=== PATIENT | female | born 1965 | race African-American/Black ===

== ENCOUNTER 2020-03-29 10:00 | Outpatient (REF) | payer OTHER, SELFPAY ==
--- NOTE | 2020-03-30 08:33 | MHC.AU.P13 ---
Adult Audiological Evaluation Date of Visit: 03/29/20 [employer] Used: Not Applicable Reason for Appointment: Audiologic re-evaluation due to increased hearing difficulties. Previous Hearing Test Results: 05/08/2017 [facility] Normal hearing thresholds at 250 and 500 Hz, precipitously dropping to a profound sensorineural hearing loss at 0642-0151 Hz with 33% speech discrimination bilaterally at 85 dB HL. Ear History: Family History of Hearing Loss?: Yes Medical History: Medication List: Not available for review today Hearing Instrument History- Right Ear: Mill Tender Washing: Phonak Model: Virto B 50-312 Serial Number: [id number] Battery Size: 312 Warranty: 10/14/2020 Service Plan: Repair and L&D Dispensed By: [facility] Date of Fittin09/23/2017 Hearing Instrument History- Left Ear: Mill Tender Washing: Phonak Model: Virto B 50-312 Serial Number: [id number] Battery Size: 312 Warranty: 10/14/2020 Service Plan: Repair and L&D Dispensed By: [facility] Date of Fittin09/23/2017 Otoscopy: Right Ear: Unremarkable Left Ear: Unremarkable Tympanometry: Right Ear: Normal Middle Ear System (Type A) Left Ear: Negative Middle Ear Pressure (Type C) Hearing Evaluation: Transducer(s) Used: Insert Earphones Bone Conduction Method: Conventional Audiometry Stimuli Used: Pure Tones Right Ear: Description of Hearing: Mild, precipitously dropping to a profound sensorineural hearing loss at 750-8000 Hz. Left Ear: Description of Hearing: Mild, precipitously dropping to a profound sensorineural hearing loss at 4918-4432 Hz Speech Recognition Threshold (SRT): Method Used: Recorded Lists Stimuli Used: Spondee Words Right Ear: 50 dB HL Left Ear: 50 dB HL Word Discrimination: Method: Recorded Lists Word Lists Used: NU-6 Right Ear: 24% at a listening level of 90 dB HL 10% at a listening level of 95 dB HL Left Ear: 24% at a listening level of 90 dB HL 0% at a listening level of 95 dB HL Comparison: Compared to the most recent evaluation: Thresholds have decreased bilaterally. Recommendations: Recommendations: Audiological re-evaluation in one year. Referral to Ear, Nose, and Throat is recommended. See Hearing Aid Follow-Up note for more information. Hearing aid(s) reprogrammed with updated test results. Recommendations (Other): Advise Cochlear Implant consultation with Shearer Operator Dr. Karson Sadler due to the degree of hearing loss and increasing communication difficulties. Diagnosis: Primary Diagnosis: H90.3 Bilateral Sensorineural Hearing Loss Services Performed: Services Performed: Comprehensive Audiological Evaluation (CPT 04929) Tympanometry (CPT 22492) Signature: Provider: Soren Rivas, BRYSON-A
== END 2020-03-29 10:01 | disposition home or self-care (01) ==
LOC: HO.SH 10:00
PROVIDERS: PCP Internal Medicine; Referring Provider Internal Medicine; Visit Provider Internal Medicine
DX: H90.3 Sensorineural hearing loss, bilateral (principal)
CPT/HCPCS: 92557; 92567

== ENCOUNTER 2020-05-07 17:32 | Outpatient (REF) | payer OTHER, SELFPAY ==
--- NOTE | 2020-05-07 17:39 | US_ITS ---
EXAMINATION: US VENOUS ULTRASOUND WITH DOPPLER LOWER EXTREMITY, LEFT CLINICAL INFORMATION: Pain COMPARISON: None TECHNIQUE: Ultrasound of the deep veins is performed from the hip to the calf with compression sonography and color and pulse Doppler assessment. Spectral analysis with color-flow imaging is performed. FINDINGS: There is normal venous compression and respiratory variation and augmented flow. The visualized common femoral vein, superficial femoral vein, profunda femoral vein, popliteal vein, and the trifurcation region shows no evidence of deep venous thrombosis. There is no significant popliteal fossa cyst. There is a small amount of fluid seen in the region the ankle. US/US venous duplex LE LT IMPRESSION: No DVT demonstrated in the left lower extremity. Small amount of fluid seen about the ankle. Difficult to tell if this is related to the ankle joint effusion.
== END 2020-05-07 17:33 | disposition home or self-care (01) ==
LOC: HO.US 17:32
PROVIDERS: PCP Internal Medicine; Visit Provider Nurse Practitioner Family
DX: I82.409 Acute embolism and thrombosis of unspecified deep veins of unspecified lower extremity (principal); M79.662 Pain in left lower leg
CPT/HCPCS: 93971

== ENCOUNTER 2020-07-19 10:52 | Outpatient (REF) | payer OTHER, SELFPAY ==
--- NOTE | ~2020-07-19 | XR_ITS ---
EXAMINATION: XR FOOT, RIGHT CLINICAL INFORMATION: Injury of the right foot COMPARISON: None TECHNIQUE: AP, lateral, and oblique views of the right foot. FINDINGS: No fracture or dislocation. Alignment is anatomic. Joint spaces are maintained. The soft tissues are unremarkable. Mild hypertrophic spurring at the plantar aponeurosis of the calcaneus. XR/XR foot RT min 3V IMPRESSION: Small plantar heel spur. No acute abnormality.
== END 2020-07-19 10:53 | disposition home or self-care (01) ==
LOC: HO.HMGCX 10:52
PROVIDERS: PCP Internal Medicine; Visit Provider Nurse Practitioner Family
DX: S99.929A Unspecified injury of unspecified foot, initial encounter (principal)
CPT/HCPCS: 73630

== ENCOUNTER 2020-08-02 16:41 | Emergency (ER) | payer OTHER, SELFPAY ==
--- NOTE | ~2020-08-02 | US_ITS ---
EXAMINATION: US VENOUS ULTRASOUND WITH DOPPLER LOWER EXTREMITY, BILATERAL CLINICAL INFORMATION: COMPARISON: None TECHNIQUE: Ultrasound of the deep veins is performed from the hip to the calf with compression sonography and color and pulse Doppler assessment. Spectral analysis with color-flow imaging is performed. FINDINGS: RIGHT: There is normal venous compression and respiratory variation and augmented flow. The visualized common femoral vein, superficial femoral vein, profunda femoral vein, popliteal vein, and the trifurcation region shows no evidence of deep venous thrombosis. There is no significant popliteal fossa cyst. LEFT: There is normal venous compression and respiratory variation and augmented flow. The visualized common femoral vein, superficial femoral vein, profunda femoral vein, popliteal vein, and the trifurcation region shows no evidence of deep venous thrombosis. There is no significant popliteal fossa cyst. If the patient's symptoms persist, followup ultrasound in 5 days 7 days might be of value to exclude proximal propagation from a non-visualized calf vein. US/US venous duplex LE BI IMPRESSION: No DVT demonstrated in the bilateral lower extremity.
--- NOTE | ~2020-08-02 | CT_ITS ---
EXAMINATION: CT ABDOMEN AND PELVIS WITH CONTRAST CLINICAL INFORMATION: Lower abdominal pain COMPARISON: None TECHNIQUE: Multidetector volumetric images were obtained from the superior aspect of the liver through the pubic symphysis following administration 85 mL of Omnipaque 350 intravenous contrast. Sagittal and coronal reformatted images were obtained on the technologist's workstation. Oral contrast: No This CT examination was performed using dose optimization techniques as appropriate, variously including the following: *Automated exposure control *Adjustment of mA and/or kV according to patient size (this includes techniques or standardized protocols for targeted exams where dose is matched to indication/reason for exam; i.e. extremities or head) *Use of iterative reconstruction technique DLP: 366 mGy-cm FINDINGS: LUNG BASES: The lung bases are clear. The heart size is normal. LIVER, GALLBLADDER, AND BILIARY TREE: The liver is normal in size, shape, and attenuation. There is a 5 mm hypodensity in the right hepatic lobe segment 6 most likely small cyst. No additional lesions seen. There is no intrahepatic ductal dilatation. There is contracted without any radiopaque calculi. PANCREAS: Unremarkable. SPLEEN: Unremarkable. ADRENAL GLANDS: Unremarkable. KIDNEYS AND URETERS: The kidneys are normal in size, shape, and attenuation. No hydronephrosis, hydroureter, or calculi seen. No perinephric stranding. There is a punctate hypodensity in the midpole right kidney cortex likely small cyst on coronal image 44/15. BLADDER: Unremarkable. GASTROINTESTINAL TRACT: There is scattered stool, diverticula and gas seen throughout the colon without significant distention or diverticulitis.. The small bowel loops are normal caliber. The stomach is distended with recently ingested food ABDOMINAL WALL: No significant hernia is appreciated. LYMPH NODES: Normal. VASCULAR: There is atherosclerotic calcification of abdominal aorta without aneurysmal dilatation. PELVIC VISCERA: The uterus is anteverted and appears unremarkable. There is no adnexal mass. There is no free fluid. OSSEOUS STRUCTURES: No lytic or sclerotic process seen. CT/CT abdomen pelvis w con IMPRESSION: Severe constipation without obstruction. Colonic diverticulosis without diverticulitis. No radiopaque urolith or hydroureteronephrosis. Tiny cyst right hepatic lobe.
[2020-08-02 17:20] VITALS: BP 124/61; PULSE 65; RESP 18; TEMP 37.3; O2SAT 97; BMI 18.6
[2020-08-02 19:47] VITALS: BP 155/69; PULSE 57; RESP 18; O2SAT 98
--- NOTE | 2020-08-02 20:09 | ED.GENADULT ---
HPI - General Adult General Chief complaint: General Medical Stated complaint: pelvic pain Time Seen by Provider: 08/02/20 19:48 Source: patient Mode of arrival: ambulatory Limitations: no limitations History of Present Illness HPI narrative: Patient presents to ED for lower abdominal pain radiating to groin area. Patient denies any dysuria, hematuria, fever, chills, nausea, vomiting, flank pain. Patient's secondary complaint is left calf pain and was concerned for blood clot due to history of blood clot and also recently receiving Malachi Malachi COVID vaccine. Patient denies any chest pain or shortness of breath. Patient states she is not sexually active. Patient denies any vaginal discharge or vaginal lesions. Related Data Previous Rx's Medication Instructions Recorded ibuprofen 800 mg tablet 800 mg PO TID 30 Days #90 tab 05/10/20 tramadol 50 mg tablet 50 mg PO BID PRN 7 Days #14 tab 05/10/20 prednisone 20 mg tablet 20 mg PO DAILY 9 Days #18 tab 07/19/20 polyethylene glycol 3350 [Miralax] 17 g PO DAILY 7 Days #119 g 08/02/20 Allergies Allergy/AdvReac Type Severity Reaction Status Date / Time penicillin V Allergy Unknown rash Verified 08/02/20 17:20 Review of Systems Review of Systems: Yes all other systems are reviewed and are negative Constitutional: Constitutional: Reports as per HPI and Reports no additional constitutional complaints Eyes: Eyes: Reports as per HPI and Reports no additional eye complaints ENT: Reports system reviewed and no additional complaints, except as documented and Reports as per HPI Cardiovascular: Cardiovascular: Reports as per HPI and Reports no additional cardiovascular complaints Respiratory: Respiratory: Reports as per HPI and Reports no additional respiratory complaints Gastrointestinal: Gastrointestinal: Reports as per HPI, Reports no additional gastrointestinal complaints and Reports abdominal pain (Lower abdominal pain/suprapubic) Genitourinary: Genitourinary: Reports no additional female genitourinary complaints and Reports as per HPI Musculoskeletal: Musculoskeletal: Reports no additional musculoskeletal complaints and Reports as per HPI Comments: Left calf pain Neurologic: Reports system reviewed and no additional complaints, except as documented and Reports as per HPI Psychiatric: Psychiatric: Reports no additional psychiatric complaints and Reports as per HPI PMF Past Medical History Medical History (Updated 08/03/20 @ 00:01 by Leann Sepulveda) Ankle pain DVT (deep venous thrombosis) Hearing loss Surgical History History of tonsillectomy History of tubal ligation Family History Family History Father HIV (human immunodeficiency virus infection) Mother HIV (human immunodeficiency virus infection) Sister Aortic heart murmur Brother HIV (human immunodeficiency virus infection) Sister No problems noted. Maternal Aunt Breast cancer Social History Social History (Updated 05/10/20 @ 16:50 by Shiloh Sahu MD) Alcohol intake: current Alcohol intake frequency: a few times a week Smoking Status: Current every day smoker Tobacco Type: Cigarette Cigarettes Per Day: 5 Use of substances other than those prescribed or required for medical reasons: Yes Substance Use Type: Marijuana Advance Directives: No Advance Directives Information Provided: No Physical Exam Vital Signs: Vital Signs: Last Vital Signs Temp 99.2 F 08/02/20 17:20 Pulse 55 08/02/20 22:46 Resp 18 08/02/20 22:46 BP 121/70 08/02/20 22:46 Pulse Ox 99 08/02/20 22:46 Body Mass Index 18.6 Const: General: cooperative, healthy appearing, comfortable, no acute distress, well developed, alert, awake and Physically active Orientation/consciousness: patient oriented x3 HENMT: Head: Yes normal to inspection, Yes No palpable skull fracture present, Yes normocephalic and Yes atraumatic Eyes: General: appearance normal, both eyes and all related structures Neck: Neck: Yes normal visual inspection, Yes full ROM, Yes no lymphadenopathy, Yes no meningeal signs, Yes trachea midline, Yes supple and No tender Chest: Chest palpation & inspection: normal inspection of the chest and normal palpation of entire chest wall Resp: Effort & Inspection: normal respiratory effort and able to speak in complete sentences Auscultation: clear to auscultation bilaterally Cardio: Jugular venous distension: no JVD Heart sounds: S1 normal heart sound present and S2 normal heart sound present GI: Inspection: Yes normal to inspection and No abdominal wall ecchymosis Palpation (GI): Soft to palpation, not firm, Tenderness to palpation present (GI) suprapubicly, no guarding and not rigid : General: No CVA tenderness and Yes no CVA tenderness Back/Spine/Pelvis: Back: no CVA tenderness, No CVA tenderness and No back tenderness Skin: General skin exam: no rashes or lesions noted and elasticity normal Neuro: General: patient oriented x3, no meningeal signs and CN's II-XI intact bilaterally Cranial nerves: Yes CN's II-XII intact bilaterally Extrem: Other: Left Lower extremity: Positive for left calf tenderness on palpation. Negative for left leg swelling, redness, deformity, or bruises. Vascular/Neuro/motor exam of left lower extremity intact Rigth lower extremity; normal. Vascular, neuro/motor exam is intact. General: Yes normal to inspection and Yes full ROM Psych: Appearance: grossly normal, well kempt and not disheveled Course Course Course Narrative: Patient will have ultrasound of bilateral extremities to make sure no DVT due to calf pain of left leg and recent Malachi and Malachi COVID vaccine. Patient also have sent for abdominal CT scan to make sure there is no abdominal AA etiology. CPK was drawn make sure there is no signs of other mild losses due to patient stating having calf pain. Reevaluation(s) Reevaluation #1: Labs are normal. Negative for elevated white blood cell count. UA negative for UTI. Was sent for abdominal CT scan. Patient given Toradol fluids. Reevaluation #2: CT scan negative for any intra abdominal medical/surgical emergency. Positive for severe constipation. Medical Decision Making MDM Narrative Medical decision making narrative: Constipation Lab Data Result diagrams: 08/02/20 20:07 08/02/20 20:07 Labs: Lab Results 08/02/20 08/02/20 08/02/20 Range/Units 20:07 20:07 20:07 WBC 9.9 (4.8-10.8) X10*3/uL RBC 4.21 (4.20-5.50) X10*6/uL Hgb 12.8 (12.0-16.0) g/dl Hct 38.3 (37-47) % MCV 91.0 (80-98) fL MCH 30.4 (27.0-33.0) pg MCHC 33.4 (31.0-35.0) g/dl RDW 14.0 (11.0-16.0) % Plt Count 235 (160-400) X10*3/uL MPV 8.3 L (9.4-12.3) fL Immature Gran % (Auto) 0.3 (0.0-0.4) % Neut % (Auto) 62.0 (45-73) % Lymph % (Auto) 25.2 (20-40) % Florence % (Auto) 10.8 (2-11) % Eos % (Auto) 1.5 (0-4) % Baso % (Auto) 0.2 (0-2) % Lymph # (Auto) 2.5 (1.2-4.9) X10*3/uL Florence # (Auto) 1.1 (0.1-1.2) X10*3/uL Eos # (Auto) 0.2 (0.0-0.4) X10*3/uL Baso # (Auto) 0.0 (0.0-0.2) X10*3/uL Abs Immat Gran (auto) 0.03 (0.00-0.03) X10*3/uL Absolute Neuts (auto) 6.2 (2.0-8.3) X10*3/uL Absolute Nucleated RBC 0.000 (0.0-0.012) X10*3/uL Nucleated RBC % (auto) 0.0 (0.0-0.2) /100WBC PT (10.8-13.0) SEC INR (0.9-1.1) APTT (24.1-38.0) SEC Sodium 140 (135-145) mmol/L Potassium 3.5 (3.3-5.1) mmol/L Chloride 102 (96-108) mmol/L Carbon Dioxide 27 (22-29) mmol/L Anion Gap 15 (12-20) BUN 15 (9-16) mg/dL Creatinine 0.86 (0.5-1.4) mg/dL Estim Creat Clear Calc 55.5 Estimated GFR > 60 Random Glucose 103 (60-115) mg/dL Calcium 8.8 (8.4-10.2) mg/dL Total Bilirubin 0.4 (0.0-1.0) mg/dL AST 16 (5-31) U/L ALT 13 (0-31) U/L Alkaline Phosphatase 83 (39-117) U/L Total Creatine Kinase (26-140) U/L Total Protein 6.8 (6.5-8.0) g/dL Albumin 4.1 (3.5-5.0) g/dL Urine Color YELLOW Urine Appearance CLEAR Urine pH 6.0 (5.0-8.0) Ur Specific Elliott 1.025 (1.005-1.025) Urine Protein NEG (NEG-TRACE) MG/DL Urine Glucose (UA) NEG (NEG) MG/DL Urine Ketones NEG (NEG) MG/DL Urine Blood TRACE (NEG) Urine Nitrite NEG (NEG) Ur Leukocyte Esterase NEG (NEG) Urine RBC 0-2 (0) /HPF Urine WBC 0 (0-4) /HPF Ur Squamous Epith Cells TRACE /LPF Urine Bacteria TRACE /LPF Urine Test (NEGATIVE) 08/02/20 08/02/20 08/02/20 Range/Units 20:07 20:57 20:57 WBC (4.8-10.8) X10*3/uL RBC (4.20-5.50) X10*6/uL Hgb (12.0-16.0) g/dl Hct (37-47) % MCV (80-98) fL MCH (27.0-33.0) pg MCHC (31.0-35.0) g/dl RDW (11.0-16.0) % Plt Count (160-400) X10*3/uL MPV (9.4-12.3) fL Immature Gran % (Auto) (0.0-0.4) % Neut % (Auto) (45-73) % Lymph % (Auto) (20-40) % Florence % (Auto) (2-11) % Eos % (Auto) (0-4) % Baso % (Auto) (0-2) % Lymph # (Auto) (1.2-4.9) X10*3/uL Florence # (Auto) (0.1-1.2) X10*3/uL Eos # (Auto) (0.0-0.4) X10*3/uL Baso # (Auto) (0.0-0.2) X10*3/uL Abs Immat Gran (auto) (0.00-0.03) X10*3/uL Absolute Neuts (auto) (2.0-8.3) X10*3/uL Absolute Nucleated RBC (0.0-0.012) X10*3/uL Nucleated RBC % (auto) (0.0-0.2) /100WBC PT 12.6 (10.8-13.0) SEC INR 1.1 (0.9-1.1) APTT 32.9 (24.1-38.0) SEC Sodium (135-145) mmol/L Potassium (3.3-5.1) mmol/L Chloride (96-108) mmol/L Carbon Dioxide (22-29) mmol/L Anion Gap (12-20) BUN (9-16) mg/dL Creatinine (0.5-1.4) mg/dL Estim Creat Clear Calc Estimated GFR Random Glucose (60-115) mg/dL Calcium (8.4-10.2) mg/dL Total Bilirubin (0.0-1.0) mg/dL AST (5-31) U/L ALT (0-31) U/L Alkaline Phosphatase (39-117) U/L Total Creatine Kinase 42 (26-140) U/L Total Protein (6.5-8.0) g/dL Albumin (3.5-5.0) g/dL Urine Color Urine Appearance Urine pH (5.0-8.0) Ur Specific Elliott (1.005-1.025) Urine Protein (NEG-TRACE) MG/DL Urine Glucose (UA) (NEG) MG/DL Urine Ketones (NEG) MG/DL Urine Blood (NEG) Urine Nitrite (NEG) Ur Leukocyte Esterase (NEG) Urine RBC (0) /HPF Urine WBC (0-4) /HPF Ur Squamous Epith Cells /LPF Urine Bacteria /LPF Urine Test NEGATIVE (NEGATIVE) Discharge Plan Discharge Clinical Impression: Acute leg pain, Constipation Patient Disposition: Home, Self-Care Instructions: Constipation (ED), Leg Pain (ED) Additional Instructions: Return to the ED immediately for worsening abdominal pain, nausea, vomiting, blood in stool, blood in stool, flank pain, chest pain, shortness of breath, swelling of lower extremities, chest pain on inspiration, coughing up blood, fever, chills, dysuria, hematuria, or any other concerning symptoms. Prescriptions: New polyethylene glycol 3350 [Miralax] 17 gram/dose powder 17 g PO DAILY 7 Days Qty: 119 RF: 0 No Action tramadol 50 mg tablet 50 mg PO BID PRN (Reason: pain) 7 Days Qty: 14 RF: 0 ibuprofen 800 mg tablet 800 mg PO TID 30 Days Qty: 90 RF: 1 prednisone 20 mg tablet 20 mg PO DAILY 9 Days Qty: 18 RF: 0 Referrals: Shiloh Pozo MD [Primary Care Provider] - 2 days (Abdominal pain. CT scan shows constipation. Lower extremities negative for any blood clots.) Interventions: ED Discharge Assessment Last Done: 08/02/20 23:08 Discharge Date/Time: 08/02/20 23:09 Print Language: Kinyarwanda
[2020-08-02 20:18] LABS: MANUAL DIFF FLAG NO
[2020-08-02 20:20] LABS: Basophils Percent Auto 0.2 % (0-2); Eosinophils Absolute Auto 0.2 X10*3/uL (0.0-0.4); Eosinophils Percent Auto 1.5 % (0-4); Glucose Urine UA NEG (NEG); Hematocrit 38.3 % (37-47); Hemoglobin 12.8 g/dl (12.0-16.0); Imm Gran Abs Auto 0.03 X10*3/uL (0.00-0.03); Imm Gran Pct Auto 0.3 % (0.0-0.4); Leukocyte Esterase Urine NEG (NEG); Lymphocytes Absolute Auto 2.5 X10*3/uL (1.2-4.9); Lymphocytes Percent Auto 25.2 % (20-40); Mean Corpuscular HGB Conc 33.4 g/dl (31.0-35.0); Mean Corpuscular Hemoglobin 30.4 pg (27.0-33.0); Mean Platelet Volume 8.3 fL (9.4-12.3); Monocytes Absolute Auto 1.1 X10*3/uL (0.1-1.2); Monocytes Percent Auto 10.8 % (2-11); Neutrophils Absolute Auto 6.2 X10*3/uL (2.0-8.3); Nitrite Urine NEG (NEG); Platelet Count 235 X10*3/uL (160-400); Red Blood Count 4.21 X10*6/uL (4.20-5.50); Specific Gravity - Urine 1.025 (1.005-1.025); Urine Blood TRACE (NEG); Urine Ketones NEG (NEG); Urine Protein NEG (NEG-TRACE); White Blood Count 9.9 X10*3/uL (4.8-10.8)
[2020-08-02 20:21] LABS: Appearance Urine CLEAR; Color Urine YELLOW
[2020-08-02 20:24] LABS: UPreg QC Valid YES; Urine Pregnancy NEGATIVE (NEGATIVE)
[2020-08-02 20:27] LABS: Bacteria Urine TRACE /LPF; RBC Urine 0-2 /HPF (0); Squamous Epithelial Cell Urine TRACE /LPF; WBC Urine 0 /HPF (0-4)
[2020-08-02 20:43] LABS: Alanine Aminotransferase 13 U/L (0-31); Albumin Level 4.1 g/dL (3.5-5.0); Alkaline Phosphatase 83 U/L (39-117); Anion Gap 15 (12-20); Aspartate Amino Transferase 16 U/L (5-31); Bilirubin Total 0.4 mg/dL (0.0-1.0); Blood Urea Nitrogen 15 mg/dL (9-16); Calcium 8.8 mg/dL (8.4-10.2); Carbon Dioxide 27 mmol/L (22-29); Chloride 102 mmol/L (96-108); Creatinine Clr Calc Pharmacy 55.5; Estimated Glomerular Filt Rate > 60; Glucose Random 103 mg/dL (60-115); Potassium 3.5 mmol/L (3.3-5.1); Sodium 140 mmol/L (135-145); Total Protein 6.8 g/dL (6.5-8.0)
[2020-08-02 20:45] VITALS: BP 95/50; PULSE 55; RESP 16; O2SAT 98
[2020-08-02] MEDS: Ketorolac Tromethamine 30 MG/ML VIAL IVPUSH (21:03)
[2020-08-02] MEDS: 0.9 % Sodium Chloride 1,000 ML 999 ML IV (21:03)
[2020-08-02 21:12] LABS: INTERNATIONAL NORM RATIO 1.1 (0.9-1.1); Prothrombin Time 12.6 SEC (10.8-13.0)
[2020-08-02 21:15] LABS: Partial Thromboplastin Time 32.9 SEC (24.1-38.0)
--- NOTE | 2020-08-02 21:29 | PC.NURSE ---
Pt at ED CT at this time
[2020-08-02] MEDS: iohexoL 350 MG/ML 100 ML INFUS..BTL IV (21:37)
--- NOTE | 2020-08-02 22:37 | PC.NURSE ---
Pt reports improvement in pelvic pain while at rest s/p meds. Pt stand and pivot to to transfer to bathroom. When pt stands she states it feels like everything is just falling out down there.
[2020-08-02 22:46] VITALS: BP 121/70; PULSE 55; RESP 18; O2SAT 99
[2020-08-02] MEDS: Magnesium Citrate 300 ML SOLUTION PO (23:06)
== END 2020-08-02 23:09 | disposition home or self-care (01) ==
PROVIDERS: Physician Assistant; Emergency Provider Internal Medicine; PCP Internal Medicine
DX: M79.661 Pain in right lower leg (principal); M79.662 Pain in left lower leg; R60.0 Localized edema; K59.00 Constipation, unspecified; F17.210 Nicotine dependence, cigarettes, uncomplicated; F12.90 Cannabis use, unspecified, uncomplicated; Z71.6 Tobacco abuse counseling; Z79.899 Other long term (current) drug therapy; Z86.718 Personal history of other venous thrombosis and embolism
CPT/HCPCS: 36415; 74177; 80053; 81001; 81025; 82550; 85025; 85610; 85730; 93970; 96361; 96365; 96375; 99284; J1885; Q9967

== ENCOUNTER 2020-10-16 11:01 | Outpatient (REF) | payer OTHER, SELFPAY ==
--- NOTE | ~2020-10-16 | XR_ITS ---
EXAMINATION: CERVICAL LINE. LUMBAR SPINE. CLINICAL INFORMATION: Low back pain. Neck pain. COMPARISON: None TECHNIQUE: Cervical spine 3 views. Lumbar spine 3 views. FINDINGS: CERVICAL SPINE: There is normal cervical lordosis. The vertebral heights, alignment and disc heights are normal. No visible acute fracture, dislocation or lytic process seen. The prevertebral soft tissues are normal. LUMBAR SPINE: There is normal lumbar lordosis. The vertebral heights, alignment and disc heights are normal. No visible acute fracture, dislocation or lytic process seen. The paravertebral soft tissues are normal. The SI joints are normal. XR/XR cervical spine 3V IMPRESSION: Unremarkable cervical spine exam. Unremarkable lumbar spine exam.
--- NOTE | ~2020-10-16 | XR_ITS ---
EXAMINATION: CERVICAL LINE. LUMBAR SPINE. CLINICAL INFORMATION: Low back pain. Neck pain. COMPARISON: None TECHNIQUE: Cervical spine 3 views. Lumbar spine 3 views. FINDINGS: CERVICAL SPINE: There is normal cervical lordosis. The vertebral heights, alignment and disc heights are normal. No visible acute fracture, dislocation or lytic process seen. The prevertebral soft tissues are normal. LUMBAR SPINE: There is normal lumbar lordosis. The vertebral heights, alignment and disc heights are normal. No visible acute fracture, dislocation or lytic process seen. The paravertebral soft tissues are normal. The SI joints are normal. XR/XR lumbar spine 2-3V IMPRESSION: Unremarkable cervical spine exam. Unremarkable lumbar spine exam.
== END 2020-10-16 11:02 | disposition home or self-care (01) ==
LOC: HO.HMGCX 11:01
PROVIDERS: PCP Internal Medicine; Visit Provider Nurse Practitioner Family
DX: M54.2 Cervicalgia (principal); M54.5 Low back pain
CPT/HCPCS: 72040; 72100

== ENCOUNTER 2021-02-14 11:46 | Outpatient (REF) | payer OTHER, SELFPAY ==
--- NOTE | ~2021-02-14 | XR_ITS ---
EXAMINATION: XR SHOULDER, LEFT CLINICAL INFORMATION: Shoulder pain COMPARISON: 07/23/2018 TECHNIQUE: Three views of the left shoulder. FINDINGS: No fracture or dislocation. The glenohumeral joint remains aligned. There is moderate joint space narrowing. The acromioclavicular joint is intact. The visualized lung is clear. The visualized ribs are intact. XR/XR shoulder LT min 2V IMPRESSION: Moderate narrowing of the glenohumeral joint space which appears progressed from 2019.
== END 2021-02-14 11:47 | disposition home or self-care (01) ==
LOC: HO.HOSX 11:46
PROVIDERS: Visit Provider Orthopaedic Surgery
DX: M24.812 Other specific joint derangements of left shoulder, not elsewhere classified (principal)
CPT/HCPCS: 73030; 99202

== ENCOUNTER 2021-02-27 17:49 | Outpatient (REF) | payer OTHER, SELFPAY ==
--- NOTE | ~2021-02-27 | MR_ITS ---
EXAMINATION: MR SHOULDER WITHOUT CONTRAST, LEFT CLINICAL INFORMATION: Left shoulder pain radiating to the chest. Weakness in hands. COMPARISON: Left shoulder radiographs dated 02/14/2021. TECHNIQUE: Multisequence MR imaging of the left shoulder was obtained without contrast on a high-field strength scanner. FINDINGS: ROTATOR CUFF: Mild supraspinatus and infraspinatus tendinosis. Mild subscapularis tendinosis with distal articular surface fraying/partial tearing measuring 1.9 cm in ML dimension. No full-thickness rotator cuff tendon defect. No muscle atrophy or fatty infiltration. BICEPS: The proximal long head biceps tendon is intact. Fluid within the tendon sheath, which may be related to a joint effusion or indicate proximal long head biceps tenosynovitis. CORACOACROMIAL ARCH: The undersurface of the acromion is flat with no subacromial spur. Mild acromioclavicular osteoarthritis. LABRUM/CAPSULE: Peripheral fraying of the labrum without undersurface tearing. GLENOHUMERAL JOINT/MARROW: Full-thickness glenoid and medial humeral head articular cartilage loss with subchondral cystic change and marrow edema. Marginal osteophytes. Small joint effusion. MR/MR shoulder LT wo con IMPRESSION: 1. Mild supraspinatus and infraspinatus tendinosis as well as mild subscapularis tendinosis where there is distal articular surface partial tearing. No full-thickness tendon defect. 2. [id number]-[id number] glenohumeral osteoarthritis and small joint effusion. 3. Fluid within the proximal long head biceps tendon sheath, which could be related to the joint effusion or indicate tenosynovitis. No measurable tendon defect. 4. Peripheral fraying of the glenoid labrum without undersurface tearing.
== END 2021-02-27 17:50 | disposition home or self-care (01) ==
LOC: HO.MRI 17:49
PROVIDERS: Visit Provider Orthopaedic Surgery
DX: M24.812 Other specific joint derangements of left shoulder, not elsewhere classified (principal)
CPT/HCPCS: 73221

== ENCOUNTER 2021-03-19 13:06 | Outpatient (REF) | payer OTHER, SELFPAY ==
--- NOTE | ~2021-03-19 | MM_ITS ---
EXAMINATION: MM SCREENING DIGITAL BREAST TOMOSYNTHESIS, BILATERAL CLINICAL INFORMATION: Screening. Asymptomatic. The lifetime risk of breast cancer based on the Tyrer-Cuzick Model is 3.8%. COMPARISON: Mammography: February 25, 2018 and studies dating back to February 01, 2009 TECHNIQUE: Digital breast tomosynthesis is performed in both the craniocaudal and mediolateral oblique views along with computer-aided detection (CAD). Synthesized 2D images are generated from the tomosynthesis. FINDINGS: The breasts are heterogeneously dense, which may obscure small masses (ACR BI-RADS breast composition Category c). There are no significant masses, abnormal calcifications, or other abnormalities. MM/MM tomosynthesis screening BI IMPRESSION: There are no significant changes from prior study. ASSESSMENT: BI-RADS 1: Negative RECOMMENDATION: Routine annual mammography screening. This patient's information was entered into a reminder system with a target due date for their next mammogram.
== END 2021-03-19 13:07 | disposition home or self-care (01) ==
LOC: HO.MAMMO 13:06
PROVIDERS: Visit Provider Internal Medicine
DX: Z12.31 Encounter for screening mammogram for malignant neoplasm of breast (principal)
CPT/HCPCS: 77063; 77067

== ENCOUNTER → 2021-06-12 10:48 | Outpatient (BNVA) | payer OTHER, SELFPAY | PROVIDERS: PCP Internal Medicine; Referring Provider Internal Medicine; Visit Provider Physician Assistant | DX: Z12.11 Encounter for screening for malignant neoplasm of colon (principal) | CPT/HCPCS: 99212 ==

== ENCOUNTER 2021-09-02 08:02 | Emergency (ER) | payer OTHER, SELFPAY ==
--- NOTE | 2021-09-02 | ECG_ITS ---
Test Reason : dyspnea Blood Pressure : / mmHG Vent. Rate : 063 BPM Atrial Rate : 063 BPM P-R Int : 146 ms QRS Dur : 088 ms QT Int : 418 ms P-R-T Axes : 083 064 080 degrees QTc Int : 427 ms Normal sinus rhythm Normal ECG When compared with ECG of 20-APR-2019 15:54, No significant change was found Referred By: Generic ED Physician Electronically Signed By:OCTAVIANO DOLL
--- NOTE | ~2021-09-02 | XR_ITS ---
EXAMINATION: XR CHEST CLINICAL INFORMATION: Cough COMPARISON: Chest radiograph 04/18/2019, CTA chest 04/20/2019 TECHNIQUE: Frontal view of the chest was obtained. FINDINGS: The heart and pulmonary vessels appear normal. Linear atelectasis is present in the left lower lung. No consolidations, pleural effusions or suspicious lung masses are seen. XR/XR chest 1V IMPRESSION: No acute intrathoracic disease.
[2021-09-02 09:55] VITALS: BP 139/88; PULSE 70; RESP 24; TEMP 36.1; O2SAT 98; BMI 17.6
--- NOTE | 2021-09-02 16:29 | ED_ITS ---
HPI - URI/Sore Throat General Stated Complaint: covid+ , chest pain Related Data Previous Rx's Medication Instructions Recorded bisacodyl 5 mg tablet,delayed 10 mg PO ONCE colonoscopy prep 1 06/12/21 release (Dulcolax (bisacodyl)) day #2 tabs polyethylene glycol 3350 17 gram 17 g PO DAILY #30 ea 06/12/21 oral powder packet (Miralax) polyethylene glycol 3350 17 238 g PO ONCE 1 day #238 grams 06/12/21 gram/dose oral powder (Miralax) apixaban 5 mg (74 tabs) tablets in 5 mg PO BID #74 ea 09/03/21 a dose pack (EliWhi DVT-PE Treat 30D Start) albuterol sulfate 90 mcg/actuation 2 inh inhalation Q6-8H PRN 09/04/21 aerosol inhaler shortness of breath or wheezing #6.7 grams guaifenesin 200 mg tablet 200 mg PO Q4H PRN congestion #30 09/04/21 tabs pulse oximeter #1 ea 09/04/21 cyclobenzaprine 5 mg tablet 5 mg PO BEDTIME PRN muscle spasm 09/19/21 #7 tabs diclofenac sodium 1 % topical gel 2 g topical QID PRN pain #100 grams 09/19/21 (Arthritis Pain (diclofenac)) lidocaine 4 % topical patch 1 patch topical DAILY PRN pain #30 09/19/21 (Aspercreme (lidocaine)) ea Allergies Allergy/AdvReac Type Severity Reaction Status Date / Time penicillin V Allergy Intermediate rash Verified 09/19/21 08:39 [facility] Past Medical History Medical History Ankle pain DVT (deep venous thrombosis) (~09/03/21) Hearing loss Left shoulder pain Surgical History History of tonsillectomy History of tubal ligation Family History Family History Father HIV (human immunodeficiency virus infection) Mother HIV (human immunodeficiency virus infection) Sister Aortic heart murmur Brother HIV (human immunodeficiency virus infection) Sister No problems noted. Maternal Aunt Breast cancer Social History Social History (Reviewed 09/19/21 @ 08:31 by CORNELIUS Laboy Housing: Unknown / Unable to assess Are you a primary youth care professional to a significant other at home: No Do you presently have visiting nurse or other home services: No Alcohol intake: former Patient Tobacco Use Status: Current everyday Tobacco user Tobacco use type: Cigarette Cigarettes Per Day: 2 e-Cigarette/Vaping Use: Never Used Second Hand Smoke Exposure: No Substance Use Type: Marijuana service: No Current occupational status: employed Current occupational exposures/hazards: No Cognitive needs: No Hearing needs: Yes Vision needs: Yes Physical Exam Vital Signs: Vital Signs: Last Vital Signs Temp 97 F 09/02/21 09:55 Pulse 70 09/02/21 09:55 Resp 24 H 09/02/21 09:55 BP 139/88 09/02/21 09:55 Pulse Ox 98 09/02/21 09:55 O2 Del Method 09/02/21 09:55 BMI result Body Mass Index 17.6 MDM - URI/Sore Throat Lab Data Result diagrams: 09/02/21 16:40 09/02/21 16:40 Labs: Lab Results 09/02/21 09/02/21 09/02/21 Range/Units 16:40 16:40 16:41 WBC 8.2 (4.8-10.8) X10*3/uL RBC 4.96 (4.20-5.50) X10*6/uL Hgb 14.8 (12.0-16.0) g/dl Hct 44.8 (37.0-47.0) % MCV 90.3 (80.0-98.0) fL MCH 29.8 (27.0-33.0) pg MCHC 33.0 (31.0-35.0) g/dl RDW 13.4 (11.0-16.0) % Plt Count 254 (160-400) X10*3/uL MPV 8.5 L (9.4-12.3) fL Immature Gran % (Auto) 0.2 (0.0-0.4) % Neut % (Auto) 62.4 (45-73) % Lymph % (Auto) 25.1 (20-40) % [place] % (Auto) 12.2 H (2-11) % Eos % (Auto) 0.0 (0-4) % Baso % (Auto) 0.1 (0-2) % Lymph # (Auto) 2.1 (1.2-4.9) X10*3/uL [place] # (Auto) 1.0 (0.1-1.2) X10*3/uL Eos # (Auto) 0.0 (0.0-0.4) X10*3/uL Baso # (Auto) 0.0 (0.0-0.2) X10*3/uL Abs Immat Gran (auto) 0.02 (0.00-0.03) X10*3/uL Absolute Neuts (auto) 5.1 (2.0-8.3) x10*3/uL Absolute Nucleated RBC 0.000 (0.0-0.012) X10*3/uL Nucleated RBC % (auto) 0.0 (0.0-0.2) /100WBC Sodium 139 (135-145) mmol/L Potassium 4.4 D (3.3-5.1) mmol/L Chloride 103 (96-108) mmol/L Carbon Dioxide 26 (22-29) mmol/L Anion Gap 14 (12-20) BUN 10 (9-16) mg/dL Creatinine 0.77 (0.5-1.4) mg/dL Estim Creat Clear Calc 58.4 Estimated GFR > 60 Random Glucose 102 (60-115) mg/dL Calcium 10.4 H D (8.4-10.2) mg/dL Magnesium 2.2 (1.6-2.6) mg/dL Total Bilirubin 0.9 (0.0-1.0) mg/dL AST 16 (5-31) U/L ALT 11 (0-31) U/L Alkaline Phosphatase 80 (39-117) U/L Troponin I High Sens < 3.5 (<3.5-17.0) ng/L Total Protein 8.2 H D (6.5-8.0) g/dL Albumin 4.7 (3.5-5.0) g/dL Discharge Plan Discharge Clinical Impression: Patient left without being seen Patient Disposition: Left Without Being Seen Interventions: LWBS Worksheet Last Done: 09/02/21 20:01 Discharge Date/Time: 09/02/21 20:01
[2021-09-02 16:45] LABS: MANUAL DIFF FLAG NO
[2021-09-02 16:46] LABS: Basophils Percent Auto 0.1 % (0-2); Hematocrit 44.8 % (37.0-47.0); Hemoglobin 14.8 g/dl (12.0-16.0); Imm Gran Abs Auto 0.02 X10*3/uL (0.00-0.03); Imm Gran Pct Auto 0.2 % (0.0-0.4); Lymphocytes Absolute Auto 2.1 X10*3/uL (1.2-4.9); Lymphocytes Percent Auto 25.1 % (20-40); Mean Corpuscular Hemoglobin 29.8 pg (27.0-33.0); Mean Corpuscular Volume 90.3 fL (80.0-98.0); Mean Platelet Volume 8.5 fL (9.4-12.3); Monocytes Percent Auto 12.2 % (2-11); Neutrophils Absolute Auto 5.1 x10*3/uL (2.0-8.3); Neutrophils Percent Auto 62.4 % (45-73); Platelet Count 254 X10*3/uL (160-400); Red Blood Count 4.96 X10*6/uL (4.20-5.50); Red Cell Distribution Width 13.4 % (11.0-16.0); White Blood Count 8.2 X10*3/uL (4.8-10.8)
[2021-09-02 17:02] LABS: Alanine Aminotransferase 11 U/L (0-31); Albumin Level 4.7 g/dL (3.5-5.0); Alkaline Phosphatase 80 U/L (39-117); Anion Gap 14 (12-20); Aspartate Amino Transferase 16 U/L (5-31); Bilirubin Total 0.9 mg/dL (0.0-1.0); Blood Urea Nitrogen 10 mg/dL (9-16); Calcium 10.4 mg/dL (8.4-10.2); Carbon Dioxide 26 mmol/L (22-29); Chloride 103 mmol/L (96-108); Creatinine Clr Calc Pharmacy 58.4; Estimated Glomerular Filt Rate > 60; Glucose Random 102 mg/dL (60-115); Magnesium 2.2 mg/dL (1.6-2.6); Potassium 4.4 mmol/L (3.3-5.1); Sodium 139 mmol/L (135-145); Total Protein 8.2 g/dL (6.5-8.0)
[2021-09-02 17:08] LABS: Troponin-I High Sensitivity < 3.5 ng/L (<3.5-17.0)
== END 2021-09-02 20:01 | disposition left against medical advice (07) ==
PROVIDERS: Physician Assistant; Emergency Provider Emergency Medicine; PCP Internal Medicine
DX: U07.1 COVID-19 (principal); R05.9 Cough, unspecified; R07.89 Other chest pain; Z79.899 Other long term (current) drug therapy
CPT/HCPCS: 36415; 71045; 80053; 83735; 84484; 85025; 93005; 99283

== ENCOUNTER 2021-09-03 11:46 | Emergency (ER) | payer OTHER, SELFPAY ==
--- NOTE | 2021-09-03 | ECG_ITS ---
Test Reason : cp Blood Pressure : / mmHG Vent. Rate : 082 BPM Atrial Rate : 082 BPM P-R Int : 146 ms QRS Dur : 086 ms QT Int : 366 ms P-R-T Axes : 081 058 060 degrees QTc Int : 427 ms Normal sinus rhythm Possible Left atrial enlargement Borderline ECG When compared with ECG of 02-SEP-2021 17:02, No significant change was found Referred By: Freya Cowan Electronically Signed By:OCTAVIANO DOLL
--- NOTE | ~2021-09-03 | XR_ITS ---
EXAMINATION: XR CHEST CLINICAL INFORMATION: Chest pain COMPARISON: Previous chest x-ray most recent from yesterday TECHNIQUE: Frontal view of the chest was obtained. FINDINGS: The patient is rotated slightly to the left. No significant abnormality is noted involving the heart, lungs, mediastinum, bony thorax or soft tissues. XR/XR chest 1V IMPRESSION: No evidence for acute disease in the chest.
--- NOTE | ~2021-09-03 | NM_ITS ---
EXAMINATION: SD LUNG IMAGE PERFUSION CLINICAL INFORMATION: Elevated d-dimer. Shortness breath and chest pain. COMPARISON: Concurrent chest x-ray 09/03/2021. Chest x-ray 09/02/2021. TECHNIQUE: Following the intravenous administration of 2.5 mCi Tc-99m MAA, an 8-view perfusion study was performed. FINDINGS: There is slight blunting of the left costophrenic angle, which may be consistent with a small pleural effusion. There is a small subsegmental defect in the left lower lobe, superior segment, and a small subsegmental defect is noted in the anterior segment of the left upper lobe (with a stripe sign). There is a small subsegmental defect in the right middle lobe, lateral segment There is overall homogeneous distribution of activity bilaterally. NM/SD pul perfusion IMPRESSION: There are 3 small subsegmental perfusion defects bilaterally as described above. There are no large mismatched segmental defects. There may be a small left pleural effusion. The findings are consistent with low/intermediate probability for pulmonary embolus.
[2021-09-03 13:07] VITALS: BP 129/78; BP 148/98; PULSE 82; RESP 20; TEMP 36.2; O2SAT 96; O2SAT 98; BMI 20.3
--- NOTE | 2021-09-03 14:39 | PC.NURSE ---
loose wet cough and clear mucous. is SOB at rest in bed. LS CTA. moist mm, skin PWD. c/o left arm and chest pain. daughter reports that patient has Fibro Myalgia. Positive for covid over 10 days ago.
[2021-09-03 14:45] VITALS: BP 166/85; PULSE 73; RESP 25; TEMP 36.5; O2SAT 96
--- NOTE | 2021-09-03 15:33 | ED.CHESTPAIN ---
HPI - Chest Pain General Chief Complaint: Chest Pain Stated Complaint: SOB,WEAKNESS,+COVID 10 DAYS AGO Time Seen by Provider: 09/03/21 15:10 Source: patient Mode of arrival: ambulatory History of Present Illness HPI narrative: 56-year-old female with a past history of DVT, hearing loss, presenting to the ED complaining of generalized fatigue/weakness, chest tightness, SOB, chest discomfort with movement/deep breathing, left arm pain since yesterday. Admits tested positive for COVID-19 almost 3 weeks ago. Patient presented to ED yesterday however LWT'd prior to evaluation. Denies fever, chills, cough, abdominal pain, nausea/vomiting/diarrhea, pedal edema MD complaint: chest pain Onset (ago): day(s) Related Data Previous Rx's Medication Instructions Recorded ibuprofen 800 mg tablet 800 mg PO Q8H PRN 30 Days #90 tab 01/29/21 bisacodyl 5 mg tablet,delayed 10 mg PO ONCE 1 Days #2 tab 06/12/21 release (Dulcolax (bisacodyl)) polyethylene glycol 3350 17 gram 17 g PO DAILY #30 ea 06/12/21 oral powder packet (Miralax) polyethylene glycol 3350 17 238 g PO ONCE 1 Days #238 g 06/12/21 gram/dose oral powder (Miralax) Allergies Allergy/AdvReac Type Severity Reaction Status Date / Time penicillin V Allergy Intermediate rash Verified 09/03/21 13:07 Review of Systems Review of Systems: Constitutional: No Fever, No Chills, + Fatigue, + Malaise ENT/Mouth: No Ear Pain, No Nasal Congestion, No Sinus Pain, No sore throat, No Rhinorrhea, No Swallowing Difficulty Eyes: No Eye Pain, No Swelling, No Redness Cardiovascular: + Chest Pain, + SOB, No Dyspnea on Exertion, No Orthopnea, No Edema, No Palpitations Respiratory: No Cough, No Sputum, No Dyspnea Gastrointestinal: No Nausea, No Vomiting, No Diarrhea, No Constipation, No Abdominal pain Genitourinary: No Dysuria, No Urinary Frequency, No Hematuria, No Flank Pain, No Urinary Flow Changes, No Hesitancy Musculoskeletal: No joint pain, + Myalgias, No Joint Swelling Skin: No Skin Lesions, No rash Neuro: + Weakness, No Numbness, No Dizziness, No Headache Yes all other systems are reviewed and are negative PMFSH Past Medical History Attestation statement: The following information was validated with the patient. Medical History Ankle pain DVT (deep venous thrombosis) Hearing loss Left shoulder pain Surgical History History of tonsillectomy History of tubal ligation Family History Family History Father HIV (human immunodeficiency virus infection) Mother HIV (human immunodeficiency virus infection) Sister Aortic heart murmur Brother HIV (human immunodeficiency virus infection) Sister No problems noted. Maternal Aunt Breast cancer Social History Social History Housing: Unknown / Unable to assess Alcohol intake: former Patient Tobacco Use Status: Current everyday Tobacco user Tobacco use type: Cigarette Cigarettes Per Day: 5 e-Cigarette/Vaping Use: Never Used Second Hand Smoke Exposure: No Use of substances other than those prescribed or required for medical reasons: No Substance Use Type: Marijuana Advance Directives: No Advance Directives Information Provided: No service: No Current occupational status: employed Current occupational exposures/hazards: No Physical Exam Vital Signs: Vital Signs: Last Vital Signs Temp 98.6 F 09/03/21 16:36 Pulse 72 09/03/21 16:36 Resp 25 H 09/03/21 16:36 BP 173/83 H 09/03/21 16:36 Pulse Ox 96 09/03/21 16:36 BMI result Body Mass Index 20.3 Const: General: cooperative and healthy appearing Orientation/consciousness: patient oriented x3 Limitations: no limitations HEENT: Head: Yes normal to inspection and Yes atraumatic Ears: hearing grossly normal bilaterally General nose exam: Normal external nose present Face and sinus: Yes normal facial exam Eyes: General: appearance normal, both eyes and all related structures EOM: EOMs intact bilaterally Neck: Neck: Yes normal visual inspection and Yes no meningeal signs Resp: Effort & Inspection: normal respiratory effort and no respiratory distress Auscultation: diminished lung sounds diffuse Cardio: Rate: regular rate Heart sounds: S1 normal heart sound present and S2 normal heart sound present GI: Inspection: Yes normal to inspection Palpation (GI): Soft to palpation, nontender, no guarding and not rigid : General: Yes no CVA tenderness Back/Spine/Pelvis: Back: no CVA tenderness Skin: Rashes: no rashes Wounds: no wounds Neuro: General: patient oriented x3, tone normal, moves all extremities, no meningeal signs and no focal motor deficits Cranial nerves: Yes CN's II-XII intact bilaterally Cognition (Neuro): normal cognition Gait exam (Neuro): Normal gait present Motor exam (neuro): 5/5 motor strength present throughout Extrem: General: Yes normal to inspection and Yes no pedal edema Course Course Course Narrative: -1715--no leukocytosis. D-dimer elevated to 284 >> will obtain V/Q scan to rule out PE. labs otherwise unremarkable -COVID-19 positive XR chest 1V IMPRESSION: No evidence for acute disease in the chest. -1803--lactic, troponin, and BNP negative. ED care transferred to ELVIRA Jara pending V/Q scan & Dispo per results MDM - Chest Pain MDM Narrative Medical decision making narrative: 56-year-old female with a past history of DVT, hearing loss, presenting to the ED complaining of generalized fatigue/weakness, chest tightness, SOB, chest discomfort with movement/deep breathing, left arm pain since yesterday. Admits tested positive for COVID-19 almost 3 weeks ago. On exam tachypneic likely from anxiety, NAD/nontoxic appearing, lungs with diminished breath sounds throughout, no wheezing, abdomen soft/nontender, no pedal edema. Concern for continued COVID-19 symptoms vs pneumonia vs PE. Symptoms atypical for ACS. Plan: EKG, labs, CXR, COVID-19 testing, DuoNeb, re-evaluate Differential Diagnosis Differential diagnosis: Likely pneumothorax, atypical chest pain, costochondritis and chest pain Medical Records Data Attestation: I reviewed the patient's medical records. Lab Data Attestation: I reviewed the patient's lab results. Result diagrams: 09/03/21 17:23 09/03/21 16:04 Labs: Lab Results 09/03/21 09/03/21 09/03/21 Range/Units 16:04 16:04 16:04 WBC (4.8-10.8) X10*3/uL RBC (4.20-5.50) X10*6/uL Hgb (12.0-16.0) g/dl Hct (37.0-47.0) % MCV (80.0-98.0) fL MCH (27.0-33.0) pg MCHC (31.0-35.0) g/dl RDW (11.0-16.0) % Plt Count (160-400) X10*3/uL MPV (9.4-12.3) fL Immature Gran % (Auto) (0.0-0.4) % Neut % (Auto) (45-73) % Lymph % (Auto) (20-40) % [place] % (Auto) (2-11) % Eos % (Auto) (0-4) % Baso % (Auto) (0-2) % Lymph # (Auto) (1.2-4.9) X10*3/uL [place] # (Auto) (0.1-1.2) X10*3/uL Eos # (Auto) (0.0-0.4) X10*3/uL Baso # (Auto) (0.0-0.2) X10*3/uL Abs Immat Gran (auto) (0.00-0.03) X10*3/uL Absolute Neuts (auto) (2.0-8.3) x10*3/uL Absolute Nucleated RBC (0.0-0.012) X10*3/uL Nucleated RBC % (auto) (0.0-0.2) /100WBC PT 13.0 (9.9-13.0) SEC INR 1.1 (0.9-1.1) D-Dimer High Sensitivty 284 NG/ML Sodium 138 (135-145) mmol/L Potassium 3.9 (3.3-5.1) mmol/L Chloride 103 (96-108) mmol/L Carbon Dioxide 24 (22-29) mmol/L Anion Gap 15 (12-20) BUN 12 (9-16) mg/dL Creatinine 0.76 (0.5-1.4) mg/dL Estim Creat Clear Calc 68.0 Estimated GFR > 60 Random Glucose 101 (60-115) mg/dL Lactic Acid (0.5-2.0) mmol/L Calcium 9.7 D (8.4-10.2) mg/dL Magnesium 2.1 (1.6-2.6) mg/dL Total Bilirubin 0.8 (0.0-1.0) mg/dL Direct Bilirubin 0.3 (0.0-0.5) mg/dL AST 20 (5-31) U/L ALT 12 (0-31) U/L Alkaline Phosphatase 82 (39-117) U/L Troponin I High Sens (<3.5-17.0) ng/L B-Natriuretic Peptide (<100) pg/mL Total Protein 8.0 (6.5-8.0) g/dL Albumin 4.7 (3.5-5.0) g/dL Lipase 16 (8-78) U/L Urine Color Urine Appearance Urine pH (5.0-8.0) Ur Specific [place] (1.005-1.025) Urine Protein (NEG-TRACE) MG/DL Urine Glucose (UA) (NEG) MG/DL Urine Ketones (NEG) MG/DL Urine Blood (NEG) Urine Nitrite (NEG) Ur Leukocyte Esterase (NEG) Urine RBC (0) /HPF Urine WBC (0-4) /HPF Ur Squamous Epith Cells /LPF Urine Bacteria /LPF COVID-19 (ELISE) Positive A (Negative) COVID-19 Clin Com See Note Influenza Type A (SHIRIN) (Negative) Influenza Type B (SHIRIN) (Negative) Influenza A & B Note 09/03/21 09/03/21 09/03/21 Range/Units 16:04 16:34 17:23 WBC 10.3 (4.8-10.8) X10*3/uL RBC 4.51 (4.20-5.50) X10*6/uL Hgb 13.4 (12.0-16.0) g/dl Hct 40.7 (37.0-47.0) % MCV 90.2 (80.0-98.0) fL MCH 29.7 (27.0-33.0) pg MCHC 32.9 (31.0-35.0) g/dl RDW 13.2 (11.0-16.0) % Plt Count 274 (160-400) X10*3/uL MPV 8.4 L (9.4-12.3) fL Immature Gran % (Auto) 0.4 (0.0-0.4) % Neut % (Auto) 71.2 (45-73) % Lymph % (Auto) 16.0 L (20-40) % [place] % (Auto) 12.2 H (2-11) % Eos % (Auto) 0.1 (0-4) % Baso % (Auto) 0.1 (0-2) % Lymph # (Auto) 1.6 (1.2-4.9) X10*3/uL [place] # (Auto) 1.3 H (0.1-1.2) X10*3/uL Eos # (Auto) 0.0 (0.0-0.4) X10*3/uL Baso # (Auto) 0.0 (0.0-0.2) X10*3/uL Abs Immat Gran (auto) 0.04 H (0.00-0.03) X10*3/uL Absolute Neuts (auto) 7.3 (2.0-8.3) x10*3/uL Absolute Nucleated RBC 0.000 (0.0-0.012) X10*3/uL Nucleated RBC % (auto) 0.0 (0.0-0.2) /100WBC PT (9.9-13.0) SEC INR (0.9-1.1) D-Dimer High Sensitivty NG/ML Sodium (135-145) mmol/L Potassium (3.3-5.1) mmol/L Chloride (96-108) mmol/L Carbon Dioxide (22-29) mmol/L Anion Gap (12-20) BUN (9-16) mg/dL Creatinine (0.5-1.4) mg/dL Estim Creat Clear Calc Estimated GFR Random Glucose (60-115) mg/dL Lactic Acid (0.5-2.0) mmol/L Calcium (8.4-10.2) mg/dL Magnesium (1.6-2.6) mg/dL Total Bilirubin (0.0-1.0) mg/dL Direct Bilirubin (0.0-0.5) mg/dL AST (5-31) U/L ALT (0-31) U/L Alkaline Phosphatase (39-117) U/L Troponin I High Sens (<3.5-17.0) ng/L B-Natriuretic Peptide (<100) pg/mL Total Protein (6.5-8.0) g/dL Albumin (3.5-5.0) g/dL Lipase (8-78) U/L Urine Color YELLOW Urine Appearance CLEAR Urine pH 6.0 (5.0-8.0) Ur Specific [place] 1.025 (1.005-1.025) Urine Protein 1+ H (NEG-TRACE) MG/DL Urine Glucose (UA) NEG (NEG) MG/DL Urine Ketones 40 (NEG) MG/DL Urine Blood TRACE (NEG) Urine Nitrite NEG (NEG) Ur Leukocyte Esterase NEG (NEG) Urine RBC 0-2 (0) /HPF Urine WBC 0-2 (0-4) /HPF Ur Squamous Epith Cells TRACE /LPF Urine Bacteria TRACE /LPF COVID-19 (ELISE) (Negative) COVID-19 Clin Com Influenza Type A (SHIRIN) Negative (Negative) Influenza Type B (SHIRIN) Negative (Negative) Influenza A & B Note See Note 09/03/21 09/03/21 Range/Units 17:23 17:23 WBC (4.8-10.8) X10*3/uL RBC (4.20-5.50) X10*6/uL Hgb (12.0-16.0) g/dl Hct (37.0-47.0) % MCV (80.0-98.0) fL MCH (27.0-33.0) pg MCHC (31.0-35.0) g/dl RDW (11.0-16.0) % Plt Count (160-400) X10*3/uL MPV (9.4-12.3) fL Immature Gran % (Auto) (0.0-0.4) % Neut % (Auto) (45-73) % Lymph % (Auto) (20-40) % [place] % (Auto) (2-11) % Eos % (Auto) (0-4) % Baso % (Auto) (0-2) % Lymph # (Auto) (1.2-4.9) X10*3/uL [place] # (Auto) (0.1-1.2) X10*3/uL Eos # (Auto) (0.0-0.4) X10*3/uL Baso # (Auto) (0.0-0.2) X10*3/uL Abs Immat Gran (auto) (0.00-0.03) X10*3/uL Absolute Neuts (auto) (2.0-8.3) x10*3/uL Absolute Nucleated RBC (0.0-0.012) X10*3/uL Nucleated RBC % (auto) (0.0-0.2) /100WBC PT (9.9-13.0) SEC INR (0.9-1.1) D-Dimer High Sensitivty NG/ML Sodium (135-145) mmol/L Potassium (3.3-5.1) mmol/L Chloride (96-108) mmol/L Carbon Dioxide (22-29) mmol/L Anion Gap (12-20) BUN (9-16) mg/dL Creatinine (0.5-1.4) mg/dL Estim Creat Clear Calc Estimated GFR Random Glucose (60-115) mg/dL Lactic Acid 1.3 (0.5-2.0) mmol/L Calcium (8.4-10.2) mg/dL Magnesium (1.6-2.6) mg/dL Total Bilirubin (0.0-1.0) mg/dL Direct Bilirubin (0.0-0.5) mg/dL AST (5-31) U/L ALT (0-31) U/L Alkaline Phosphatase (39-117) U/L Troponin I High Sens < 3.5 (<3.5-17.0) ng/L B-Natriuretic Peptide < 10 (<100) pg/mL Total Protein (6.5-8.0) g/dL Albumin (3.5-5.0) g/dL Lipase (8-78) U/L Urine Color Urine Appearance Urine pH (5.0-8.0) Ur Specific [place] (1.005-1.025) Urine Protein (NEG-TRACE) MG/DL Urine Glucose (UA) (NEG) MG/DL Urine Ketones (NEG) MG/DL Urine Blood (NEG) Urine Nitrite (NEG) Ur Leukocyte Esterase (NEG) Urine RBC (0) /HPF Urine WBC (0-4) /HPF Ur Squamous Epith Cells /LPF Urine Bacteria /LPF COVID-19 (ELISE) (Negative) COVID-19 Clin Com Influenza Type A (SHIRIN) (Negative) Influenza Type B (SHIRIN) (Negative) Influenza A & B Note Discharge Plan Discharge Clinical Impression: COVID-19 Patient Disposition: Still a Patient Instructions: COVID-19 (Coronavirus Disease 2019) (ED) Additional Instructions: Your blood work was reassuring, her chest x-ray was unremarkable Please continue to follow cold instructions and wash your hands frequently. You may take Tylenol / Motrin as directed on the bottle for pain or fever. If you have constant or persistent shortness of breath, fever unresolved with medications, chest pain, or your unable to eat or drink please return to the ED CDC Guidelines for home isolation: - Stay away from others - WEAR A MASK if you are sick AND STAY HOME - Cover your mouth and nose with a tissue when you cough or sneeze. Dispose of tissues in a lined trash can and wash your hands immediately with soap and water for at least 20 seconds. If soap and water are not available, clean hands with alcohol-based hand bicycle ii assembler that contains at least 60% alcohol. - Clean your hands often with soap and water for at least 20 seconds - Avoid touching your eyes, nose and mouth with unwashed hands - Do not share dishes, drinking glasses, cups, eating utensils, towels, or bedding with other people in your home. After using these items, wash them thoroughly with soap and water or put in the substation operator helper. - Clean high-touch surfaces in your isolation area ( sick room and bathroom) every day; let a caregiver clean and disinfect high-touch surfaces in other areas of the home. Clean the area or item with soap and water or another detergent if it is dirty. Then, use a household disinfectant. - Limit contact with pets and animals: If you must care for a pet, wash your hands before and after interacting with them) Prescriptions: No Action ibuprofen 800 mg tablet 800 mg PO Q8H PRN (Reason: pain) 30 Days Qty: 90 0RF bisacodyl [Dulcolax (bisacodyl)] 5 mg tablet,delayed release (DR/EC) 10 mg PO ONCE 1 Days Qty: 2 0RF Rx Instructions: Take 2 tablets by mouth at 12:00pm the day before your procedure. polyethylene glycol 3350 [Miralax] 17 gram/dose powder 238 g PO ONCE 1 Days Qty: 238 0RF Rx Instructions: Take as directed by mouth the day before your procedure. polyethylene glycol 3350 [Miralax] 17 gram powder in packet 17 g PO DAILY Qty: 30 5RF Referrals: Shiloh Pozo MD [Primary Care Provider] - 3 days
[2021-09-03] MEDS: 0.9 % Sodium Chloride 1,000 ML 999 ML IV (15:45)
[2021-09-03 16:23] LABS: COVID-19 Test Positive (Negative)
[2021-09-03 16:25] LABS: INTERNATIONAL NORM RATIO 1.1 (0.9-1.1)
[2021-09-03 16:27] LABS: D Dimer High Sensitivity 284 NG/ML
[2021-09-03 16:36] VITALS: BP 173/83; PULSE 72; RESP 25; TEMP 37; O2SAT 96
[2021-09-03 16:39] LABS: Alanine Aminotransferase 12 U/L (0-31); Albumin Level 4.7 g/dL (3.5-5.0); Alkaline Phosphatase 82 U/L (39-117); Anion Gap 15 (12-20); Aspartate Amino Transferase 20 U/L (5-31); Bilirubin Direct 0.3 mg/dL (0.0-0.5); Bilirubin Total 0.8 mg/dL (0.0-1.0); Blood Urea Nitrogen 12 mg/dL (9-16); Calcium 9.7 mg/dL (8.4-10.2); Carbon Dioxide 24 mmol/L (22-29); Chloride 103 mmol/L (96-108); Estimated Glomerular Filt Rate > 60; Glucose Random 101 mg/dL (60-115); Lipase 16 U/L (8-78); Magnesium 2.1 mg/dL (1.6-2.6); Potassium 3.9 mmol/L (3.3-5.1); Sodium 138 mmol/L (135-145)
[2021-09-03 16:44] LABS: Influenza A Negative (Negative); Influenza B2 Negative (Negative)
[2021-09-03 16:45] LABS: Appearance Urine CLEAR; Color Urine YELLOW; Glucose Urine UA NEG (NEG); Leukocyte Esterase Urine NEG (NEG); Nitrite Urine NEG (NEG); Specific Gravity - Urine 1.025 (1.005-1.025); UACC Culture Trigger NO; Urine Blood TRACE (NEG); Urine Ketones 40 MG/DL (NEG); Urine Protein 1+ MG/DL (NEG-TRACE)
[2021-09-03 17:27] LABS: MANUAL DIFF FLAG NO
[2021-09-03 17:30] LABS: Basophils Percent Auto 0.1 % (0-2); Eosinophils Percent Auto 0.1 % (0-4); Hematocrit 40.7 % (37.0-47.0); Hemoglobin 13.4 g/dl (12.0-16.0); Imm Gran Abs Auto 0.04 X10*3/uL (0.00-0.03); Imm Gran Pct Auto 0.4 % (0.0-0.4); Lymphocytes Absolute Auto 1.6 X10*3/uL (1.2-4.9); Mean Corpuscular HGB Conc 32.9 g/dl (31.0-35.0); Mean Corpuscular Hemoglobin 29.7 pg (27.0-33.0); Mean Corpuscular Volume 90.2 fL (80.0-98.0); Mean Platelet Volume 8.4 fL (9.4-12.3); Monocytes Absolute Auto 1.3 X10*3/uL (0.1-1.2); Monocytes Percent Auto 12.2 % (2-11); Neutrophils Absolute Auto 7.3 x10*3/uL (2.0-8.3); Neutrophils Percent Auto 71.2 % (45-73); Platelet Count 274 X10*3/uL (160-400); Red Blood Count 4.51 X10*6/uL (4.20-5.50); Red Cell Distribution Width 13.2 % (11.0-16.0); White Blood Count 10.3 X10*3/uL (4.8-10.8)
--- NOTE | 2021-09-03 17:40 | PC.NURSE ---
assisted on and off bed rodriguez. medicated for chest pain. no longer has wet cough. nsr on monitopr. awaits nuc med scan
[2021-09-03 17:42] LABS: RBC Urine 0-2 /HPF (0); Squamous Epithelial Cell Urine TRACE /LPF; WBC Urine 0-2 /HPF (0-4)
[2021-09-03] MEDS: Acetaminophen 325 MG TABLET 650 MG PO (17:42)
[2021-09-03 17:43] LABS: Bacteria Urine TRACE /LPF
[2021-09-03 17:44] LABS: Lactic Acid 1.3 mmol/L (0.5-2.0)
[2021-09-03 17:55] LABS: B Type Natriuretic Peptide < 10 pg/mL (<100); Troponin-I High Sensitivity < 3.5 ng/L (<3.5-17.0)
[2021-09-03] MEDS: Cyclobenzaprine HCl 5 MG TABLET PO (18:23)
[2021-09-03 18:58] VITALS: PULSE 62; RESP 14; O2SAT 99
[2021-09-03] MEDS: Albuterol/Iprat 2.5/0.5MG 3 ML AMPUL.NEB INHALE (18:58)
[2021-09-03] MEDS: Albuterol Sulfate (0.083%) 2.5 MG/3 ML VIAL.NEB 5 MG INHALE (18:58)
[2021-09-03 20:25] VITALS: BP 138/73; PULSE 86; RESP 24; O2SAT 96
[2021-09-03 21:56] VITALS: BP 114/67; PULSE 69; RESP 20; TEMP 36.7; O2SAT 96
[2021-09-03] MEDS: Enoxaparin Sodium 60 MG/0.6 ML SYRINGE 50 MG SUBCUT (22:56)
== END 2021-09-03 22:58 | disposition home or self-care (01) ==
PROVIDERS: Physician Assistant; Emergency Provider Emergency Medicine; PCP Internal Medicine
DX: U07.1 COVID-19 (principal); R07.89 Other chest pain; R06.02 Shortness of breath; F17.210 Nicotine dependence, cigarettes, uncomplicated; Z79.899 Other long term (current) drug therapy; Z71.6 Tobacco abuse counseling
CPT/HCPCS: 36415; 71045; 78580; 80048; 80076; 81001; 81003; 83605; 83690; 83735; 83880; 84484; 85025; 85379; 85610; 87040; 87502; 87635; 93005; 94640; 94644; 96360; 96372; 99284; 99285; A9540; J1650

== ENCOUNTER 2021-11-04 15:15 | Emergency (ER) | payer OTHER, SELFPAY ==
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
[2021-11-04 15:53] VITALS: BP 146/76; BP 177/86; PULSE 65; PULSE 75; RESP 14; TEMP 36.6; O2SAT 100; O2SAT 99; BMI 18.2
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
[2021-11-04] MEDS: Acetaminophen 325 MG TABLET 975 MG PO (19:55)
== END 2021-11-04 23:39 | disposition home or self-care (01) ==
PROVIDERS: Emergency Provider Emergency Medicine; PCP Internal Medicine
DX: S09.90XA Unspecified injury of head, initial encounter (principal); M54.2 Cervicalgia; M54.50 Low back pain, unspecified; R51.9 Headache, unspecified; F17.210 Nicotine dependence, cigarettes, uncomplicated; V43.62XA Car passenger injured in collision with other type car in traffic accident, initial encounter; Y93.9 Activity, unspecified; Y92.410 Unspecified street and highway as the place of occurrence of the external cause; Y99.9 Unspecified external cause status; Z71.6 Tobacco abuse counseling; Z79.899 Other long term (current) drug therapy; Z79.01 Long term (current) use of anticoagulants
CPT/HCPCS: 70450; 72100; 72125; 99283; 99284

== ENCOUNTER 2022-01-21 10:13 | Outpatient (REF) | payer OTHER, SELFPAY ==
--- NOTE | ~2022-01-21 | CT_ITS ---
EXAMINATION: CT ANGIOGRAM OF THE CHEST WITH AND WITHOUT CONTRAST (CT PULMONARY ANGIOGRAM FOR PE) CLINICAL INFORMATION: Reason for Exam I26.99 - Other pulmonary embolism without acute cor pulmonale COMPARISON: 04/20/2019 TECHNIQUE: Prior to contrast administration, noncontrast localization images were obtained. Subsequently, multidetector volumetric imaging was performed from the thoracic inlet to below the diaphragms following the administration of 65 mL Omnipaque 350 intravenous contrast. No contrast reaction reported Sagittal, coronal, and MIP oblique sagittal reformatted images were obtained on the CT workstation, uploaded to PACS, and reviewed. This CT examination was performed using dose optimization techniques as appropriate, variously including the following: *Automated exposure control *Adjustment of mA and/or kV according to patient size (this includes techniques or standardized protocols for targeted exams where dose is matched to indication/reason for exam; i.e. extremities or head) *Use of iterative reconstruction technique Total exam dose-length product 76 mGy-cm FINDINGS: QUALITY OF STUDY/CONTRAST BOLUS: Satisfactory. PULMONARY ARTERIES: No filling defects are seen in the main, lobar, or segmental pulmonary arteries to suggest the presence of pulmonary emboli. Assessment of the distalmost vasculature is limited due to respiratory motion artifact. THORACIC AORTA: No aneurysm or dissection. Scattered atherosclerotic calcifications. LUNG: Mild upper lobe predominant centrilobular and paraseptal emphysema. No regions of consolidation bilaterally. PLEURA: No pleural effusion or pneumothorax. MEDIASTINUM: Visualized thyroid gland is unremarkable. There are subcentimeter mediastinal lymph nodes within the range of normal variation. Cardiac size is within normal limits; no pericardial effusion. CHEST WALL/AXILLA: No axillary or internal mammary lymphadenopathy. OSSEOUS STRUCTURES: There is degenerative change in the spine at T11-T12. UPPER ABDOMEN: Unremarkable. No reflux of contrast into the hepatic veins to suggest elevated right heart pressures. CT/CT angio chest PE protocol IMPRESSION: 1. No pulmonary embolus identified. 2. Upper lobe predominant emphysema. VTE: negative
[2022-01-21] MEDS: iohexoL 350 MG/ML 75 ML INFUS..BTL IV (10:40)
== END 2022-01-21 10:14 | disposition home or self-care (01) ==
LOC: HO.CT 10:13
PROVIDERS: PCP Internal Medicine; Visit Provider Internal Medicine
DX: I26.99 Other pulmonary embolism without acute cor pulmonale (principal)
CPT/HCPCS: 71275; Q9967

== ENCOUNTER 2022-01-23 11:44 | Emergency (ER) | payer OTHER, SELFPAY ==
--- NOTE | ~2022-01-23 | XR_ITS ---
EXAMINATION: XR CHEST CLINICAL INFORMATION: Chest pain COMPARISON: 09/03/2021 TECHNIQUE: 2 views of the chest were obtained. FINDINGS: Hyperexpanded lungs. No consolidation, edema, or effusion. No pneumothorax. The cardiomediastinal silhouette is normal in size. No acute osseous abnormality. XR/XR chest 2V IMPRESSION: Hyperexpanded, clear lungs.
[2022-01-23 12:02] VITALS: BP 130/78; PULSE 75; RESP 20; TEMP 37.1; O2SAT 97; BMI 18.6
--- NOTE | 2022-01-23 12:08 | ECG_ITS ---
Test Reason : chest pain Blood Pressure : / mmHG Vent. Rate : 064 BPM Atrial Rate : 064 BPM P-R Int : 152 ms QRS Dur : 086 ms QT Int : 408 ms P-R-T Axes : 088 070 079 degrees QTc Int : 420 ms Normal sinus rhythm Normal ECG When compared with ECG of 03-SEP-2021 13:11, No significant change was found Referred By: Generic ED Physician Electronically Signed By:JC HAUSER
[2022-01-23 12:30] LABS: MANUAL DIFF FLAG NO
[2022-01-23 12:34] LABS: Basophils Percent Auto 0.4 % (0-2); Eosinophils Absolute Auto 0.1 X10*3/uL (0.0-0.4); Eosinophils Percent Auto 1.2 % (0-4); Hematocrit 42.9 % (37.0-47.0); Hemoglobin 14.4 g/dl (12.0-16.0); Imm Gran Abs Auto 0.02 X10*3/uL (0.00-0.03); Imm Gran Pct Auto 0.3 % (0.0-0.4); Lymphocytes Absolute Auto 2.7 X10*3/uL (1.2-4.9); Lymphocytes Percent Auto 34.8 % (20-40); Mean Corpuscular HGB Conc 33.6 g/dl (31.0-35.0); Mean Corpuscular Hemoglobin 30.5 pg (27.0-33.0); Mean Corpuscular Volume 90.9 fL (80.0-98.0); Mean Platelet Volume 7.9 fL (9.4-12.3); Monocytes Absolute Auto 0.6 X10*3/uL (0.1-1.2); Neutrophils Absolute Auto 4.2 x10*3/uL (2.0-8.3); Neutrophils Percent Auto 55.3 % (45-73); Platelet Count 228 X10*3/uL (160-400); Red Blood Count 4.72 X10*6/uL (4.20-5.50); Red Cell Distribution Width 13.6 % (11.0-16.0); White Blood Count 7.7 X10*3/uL (4.8-10.8)
[2022-01-23 12:56] LABS: Alanine Aminotransferase 10 U/L (0-31); Albumin Level 4.6 g/dL (3.5-5.0); Alkaline Phosphatase 84 U/L (39-117); Anion Gap 16 (12-20); Aspartate Amino Transferase 21 U/L (5-31); Bilirubin Direct 0.2 mg/dL (0.0-0.5); Bilirubin Total 0.5 mg/dL (0.0-1.0); Blood Urea Nitrogen 13 mg/dL (9-16); Carbon Dioxide 23 mmol/L (22-29); Chloride 106 mmol/L (96-108); Creatinine Clr Calc Pharmacy 49.1; Estimated Glomerular Filt Rate > 60; Glucose Random 102 mg/dL (60-115); Lipase 23 U/L (8-78); Potassium 4.5 mmol/L (3.3-5.1); Sodium 140 mmol/L (135-145); Total Protein 7.4 g/dL (6.5-8.0)
[2022-01-23 12:58] LABS: COVID-19 Test Negative (Negative); IDNOW Serial# 16C4AD1C
[2022-01-23 13:01] LABS: Troponin-I High Sensitivity < 3.5 ng/L (<3.5-17.0)
[2022-01-23 21:41] VITALS: BP 152/77; PULSE 59; RESP 17; TEMP 36.6; O2SAT 97
--- NOTE | 2022-01-23 22:41 | ED_ITS ---
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 came for having chest pain and shortness of breath for last 3 4 days feels chest heavy in difficult to breathe has dry cough no fever chills also has slight nausea no urinary complaints no fever chills patient taking Eliquis patient had a CTA chest done on 01/21 as outpatient by her PCP result pending Related Data Previous Rx's Medication Instructions Recorded albuterol sulfate 90 mcg/actuation 2 inh inhalation Q6-8H PRN 09/04/21 aerosol inhaler shortness of breath or wheezing #6.7 grams pulse oximeter #1 ea 09/04/21 apixaban 5 mg tablet (Eliquis) 5 mg PO BID #60 tabs 01/07/22 Allergies Allergy/AdvReac Type Severity Reaction Status Date / Time penicillin V Allergy Intermediate rash Verified 01/16/22 09:23 Review of Systems Review of Systems: Yes all other systems are reviewed and are negative PMFSH Past Medical History Medical History Ankle pain DVT (deep venous thrombosis) (~09/03/21) Hearing loss Left shoulder pain Surgical History History of tonsillectomy History of tubal ligation Family History Family History Father HIV (human immunodeficiency virus infection) Mother HIV (human immunodeficiency virus infection) Sister Aortic heart murmur Brother HIV (human immunodeficiency virus infection) Sister No problems noted. Maternal Aunt Breast cancer Social History Social History Household Members: Children Housing: Apartment Are you a primary director of career resources to a significant other at home: No Do you presently have visiting nurse or other home services: No Alcohol intake: former Patient Tobacco Use Status: Current everyday Tobacco user Tobacco use type: Cigarette e-Cigarette/Vaping Use: Never Used Second Hand Smoke Exposure: No Substance Use Type: Marijuana Advance Directives: No Advance Directives Information Provided: No service: No Current occupational status: employed Current occupational exposures/hazards: No Cognitive needs: No Hearing needs: Yes Vision needs: Yes Physical Exam Vital Signs: Vital Signs: Last Vital Signs Temp 97.6 F 01/23/22 22:46 Pulse 59 01/23/22 22:46 Resp 16 01/23/22 22:46 BP 149/75 H 01/23/22 22:46 Pulse Ox 97 01/23/22 21:41 O2 Del Method 01/23/22 22:46 BMI result Body Mass Index 18.6 Appearance: Alert. Oriented X3. No acute distress. Eyes: PERRLA, No Nystagmus ENT: Pharynx normal. Oral Mucosa moist Neck: Normal inspection. Neck supple. CVS: Normal heart rate and rhythm. Pulses normal. Respiratory: No respiratory distress. Equal air entry bilateral, no wheezing/rales/rhonchi Abdomen: Soft and nontender. Bowel sounds are present, no mass palpable, no CVA tenderness Skin: Skin warm and dry. Normal skin color. Normal skin turgor. Extremities: No lower extremity edema. No calf tenderness Neuro: Oriented X 3. No motor deficit. No sensory deficit.No cerebellar signs , cranial nerves II-XII intact MDM - Chest Pain MDM Narrative Medical decision making narrative: Patient with nonspecific chest discomfort for few days with history of PE on Eliquis with normal EKG and troponin patient had a CTA done 2 days ago with which did not show any saddle emboli final report is pending. Will give patient Toradol for musculoskeletal pain CTA read as negative for PE will discharge patient home Lab Data Attestation: I reviewed the patient's lab results. Result diagrams: 01/23/22 12:24 01/23/22 12:24 Labs: Lab Results 01/23/22 01/23/22 01/23/22 Range/Units 12:24 12:24 12:24 WBC 7.7 (4.8-10.8) X10*3/uL RBC 4.72 (4.20-5.50) X10*6/uL Hgb 14.4 (12.0-16.0) g/dl Hct 42.9 (37.0-47.0) % MCV 90.9 (80.0-98.0) fL MCH 30.5 (27.0-33.0) pg MCHC 33.6 (31.0-35.0) g/dl RDW 13.6 (11.0-16.0) % Plt Count 228 (160-400) X10*3/uL MPV 7.9 L (9.4-12.3) fL Immature Gran % (Auto) 0.3 (0.0-0.4) % Neut % (Auto) 55.3 (45-73) % Lymph % (Auto) 34.8 (20-40) % Nicholas % (Auto) 8.0 (2-11) % Eos % (Auto) 1.2 (0-4) % Baso % (Auto) 0.4 (0-2) % Lymph # (Auto) 2.7 (1.2-4.9) X10*3/uL Nicholas # (Auto) 0.6 (0.1-1.2) X10*3/uL Eos # (Auto) 0.1 (0.0-0.4) X10*3/uL Baso # (Auto) 0.0 (0.0-0.2) X10*3/uL Abs Immat Gran (auto) 0.02 (0.00-0.03) X10*3/uL Absolute Neuts (auto) 4.2 (2.0-8.3) x10*3/uL Absolute Nucleated RBC 0.000 (0.0-0.012) X10*3/uL Nucleated RBC % (auto) 0.0 (0.0-0.2) /100WBC Sodium 140 (135-145) mmol/L Potassium 4.5 (3.3-5.1) mmol/L Chloride 106 (96-108) mmol/L Carbon Dioxide 23 (22-29) mmol/L Anion Gap 16 (12-20) BUN 13 (9-16) mg/dL Creatinine 0.96 (0.5-1.4) mg/dL Estim Creat Clear Calc 49.1 Estimated GFR > 60 Random Glucose 102 (60-115) mg/dL Calcium 10.0 (8.4-10.2) mg/dL Total Bilirubin 0.5 (0.0-1.0) mg/dL Direct Bilirubin 0.2 (0.0-0.5) mg/dL AST 21 (5-31) U/L ALT 10 (0-31) U/L Alkaline Phosphatase 84 (39-117) U/L Troponin I High Sens < 3.5 (<3.5-17.0) ng/L Total Protein 7.4 (6.5-8.0) g/dL Albumin 4.6 (3.5-5.0) g/dL Lipase 23 (8-78) U/L COVID-19 (ELISE) (Negative) COVID-19 Clin Com 01/23/22 Range/Units 12:24 WBC (4.8-10.8) X10*3/uL RBC (4.20-5.50) X10*6/uL Hgb (12.0-16.0) g/dl Hct (37.0-47.0) % MCV (80.0-98.0) fL MCH (27.0-33.0) pg MCHC (31.0-35.0) g/dl RDW (11.0-16.0) % Plt Count (160-400) X10*3/uL MPV (9.4-12.3) fL Immature Gran % (Auto) (0.0-0.4) % Neut % (Auto) (45-73) % Lymph % (Auto) (20-40) % Nicholas % (Auto) (2-11) % Eos % (Auto) (0-4) % Baso % (Auto) (0-2) % Lymph # (Auto) (1.2-4.9) X10*3/uL Nicholas # (Auto) (0.1-1.2) X10*3/uL Eos # (Auto) (0.0-0.4) X10*3/uL Baso # (Auto) (0.0-0.2) X10*3/uL Abs Immat Gran (auto) (0.00-0.03) X10*3/uL Absolute Neuts (auto) (2.0-8.3) x10*3/uL Absolute Nucleated RBC (0.0-0.012) X10*3/uL Nucleated RBC % (auto) (0.0-0.2) /100WBC Sodium (135-145) mmol/L Potassium (3.3-5.1) mmol/L Chloride (96-108) mmol/L Carbon Dioxide (22-29) mmol/L Anion Gap (12-20) BUN (9-16) mg/dL Creatinine (0.5-1.4) mg/dL Estim Creat Clear Calc Estimated GFR Random Glucose (60-115) mg/dL Calcium (8.4-10.2) mg/dL Total Bilirubin (0.0-1.0) mg/dL Direct Bilirubin (0.0-0.5) mg/dL AST (5-31) U/L ALT (0-31) U/L Alkaline Phosphatase (39-117) U/L Troponin I High Sens (<3.5-17.0) ng/L Total Protein (6.5-8.0) g/dL Albumin (3.5-5.0) g/dL Lipase (8-78) U/L COVID-19 (ELISE) Negative (Negative) COVID-19 Clin Com See Note ECG Data ECG #1: Attestation: I personally reviewed and interpreted this ECG as follows: Interpretation: Normal sinus rhythm heart rate 64 beats per minute, normal interval normal axis no acute ST T wave changes no acute ischemia Discharge Plan Discharge Clinical Impression: Atypical chest pain Patient Disposition: Home, Self-Care Instructions: Chest Pain (ED) Additional Instructions: At this time there is no evidence of coronary disease or blood clots in the lung Take Tylenol/Motrin for pain Follow with PCP En iftikhar momento no hay evidencia de enfermedad coronaria o co?gulos de kiki en el pulm?n [place] Tylenol/Motrin para el dolor Seguir con PCP Prescriptions: No Action albuterol sulfate 90 mcg/actuation HFA aerosol inhaler 2 inh inhalation Q6-8H PRN (Reason: shortness of breath or wheezing) Qty: 6.7 0RF (DME) pulse oximeter See Rx Instructions .Route .MEDSUPPLY Qty: 1 0RF Rx Instructions: As directed Eliquis 5 mg tablet 5 mg PO BID Qty: 60 3RF Stand Alone Forms: Work/School Release Print Language: Romanian
[2022-01-23 22:46] VITALS: BP 149/75; PULSE 59; RESP 16; TEMP 36.4
[2022-01-23] MEDS: Ketorolac Tromethamine 30 MG/ML VIAL IVPUSH (23:28)
--- NOTE | 2022-01-23 23:30 | PC.NURSE ---
medicated per provider order, pt reporting 5/10 substernal chest pain.
[2022-01-24] VITALS: BP 94/67; PULSE 57; RESP 16; O2SAT 94
== END 2022-01-24 00:53 | disposition home or self-care (01) ==
PROVIDERS: Emergency Provider Internal Medicine; PCP Internal Medicine
DX: R07.89 Other chest pain (principal); R06.02 Shortness of breath; Z20.822 Contact with and (suspected) exposure to COVID-19; F17.210 Nicotine dependence, cigarettes, uncomplicated; F12.90 Cannabis use, unspecified, uncomplicated; Z86.718 Personal history of other venous thrombosis and embolism; Z86.711 Personal history of pulmonary embolism; Z79.01 Long term (current) use of anticoagulants
CPT/HCPCS: 71046; 80048; 80076; 83690; 84484; 85025; 87635; 93005; 96372; 99284; J1885

== ENCOUNTER → 2022-02-18 11:32 | Outpatient (BNVA) | payer OTHER, SELFPAY | PROVIDERS: PCP Internal Medicine; Visit Provider Internal Medicine Pulmonary Disease | DX: J44.9 Chronic obstructive pulmonary disease, unspecified (principal); R91.8 Other nonspecific abnormal finding of lung field | CPT/HCPCS: 99202 ==

== ENCOUNTER 2022-03-18 10:44 | Outpatient (REF) | payer OTHER, SELFPAY ==
--- NOTE | 2022-03-18 14:17 | PFT_ITS ---
FLOWS: FEV1 of 75% of predicted at 1.91 L. FVC 95% of predicted at 3.04 L. FEV1 to FVC ratio of 0.63. The patient used albuterol prior to testing, thus no bronchodilator testing was performed. LUNG VOLUMES: Total lung capacity 112% of predicted at 5.53 L. Residual volume 137% of predicted at 2.58 L. Slow vital capacity 97% of predicted at 2.95 L. Expiratory reserve volume 180% of predicted at 1.59 L. Diffusion capacity is moderately decreased. IMPRESSION: Moderate obstructive ventilatory defect. Bronchodilator testing was not performed as patient used to albuterol metered-dose inhaler just prior to testing. Decreased diffusion capacity suggests emphysema. Increased residual volume suggests air trapping. MD ZAHIDA Ghosh/MODL / [id number]
== END 2022-03-18 10:45 | disposition home or self-care (01) ==
LOC: HO.RESP 10:44
PROVIDERS: PCP Internal Medicine; Visit Provider Internal Medicine Pulmonary Disease
DX: J44.9 Chronic obstructive pulmonary disease, unspecified (principal)
CPT/HCPCS: 94010; 94727; 94729

== ENCOUNTER → 2022-04-02 10:02 | Outpatient (BNVA) | payer OTHER, SELFPAY | PROVIDERS: PCP Internal Medicine; Visit Provider Internal Medicine Pulmonary Disease | DX: J44.9 Chronic obstructive pulmonary disease, unspecified (principal); R91.8 Other nonspecific abnormal finding of lung field; Z79.899 Other long term (current) drug therapy | CPT/HCPCS: 99212 ==

== ENCOUNTER 2022-07-01 14:41 | Outpatient (REF) | payer OTHER, SELFPAY ==
--- NOTE | ~2022-07-01 | MM_ITS ---
EXAMINATION: MM SCREENING DIGITAL BREAST TOMOSYNTHESIS, BILATERAL CLINICAL INFORMATION: Screening. Asymptomatic. The lifetime risk of breast cancer based on the Tyrer-Cuzick Model is 5.1%. COMPARISON: Mammography: March 19, 2021 and studies dating back to March 29, 2010 TECHNIQUE: Digital breast tomosynthesis is performed in both the craniocaudal and mediolateral oblique views along with computer-aided detection (CAD). Synthesized 2D images are generated from the tomosynthesis. FINDINGS: The breasts are heterogeneously dense, which may obscure small masses (ACR BI-RADS breast composition Category c). There are no significant masses, abnormal calcifications, or other abnormalities. MM/MM tomosynthesis screening BI IMPRESSION: No significant changes from prior exam. ASSESSMENT: BI-RADS 1: Negative RECOMMENDATION: Routine annual mammography screening. This patient's information was entered into a reminder system with a target due date for their next mammogram.
== END 2022-07-01 14:42 | disposition home or self-care (01) ==
LOC: HO.MAMMO 14:41
PROVIDERS: PCP Internal Medicine; Visit Provider Internal Medicine
DX: Z12.31 Encounter for screening mammogram for malignant neoplasm of breast (principal)
CPT/HCPCS: 77063; 77067

== ENCOUNTER → 2022-07-14 13:44 | Outpatient (BNVA) | payer OTHER, SELFPAY | PROVIDERS: PCP Internal Medicine; Visit Provider Anesthesiology | DX: M25.50 Pain in unspecified joint (principal); M19.012 Primary osteoarthritis, left shoulder; M47.816 Spondylosis without myelopathy or radiculopathy, lumbar region; G57.90 Unspecified mononeuropathy of unspecified lower limb | CPT/HCPCS: 99202 ==

== ENCOUNTER 2022-08-05 06:14 | Outpatient (REF) | payer OTHER, SELFPAY ==
--- NOTE | ~2022-08-05 | FL_ITS ---
EXAMINATION: XR FLUOROSCOPY WITH IMAGES CLINICAL INFORMATION: M25.512 - Pain in left shoulder COMPARISON: MR left shoulder 02/27/2021 TECHNIQUE: Fluoroscopy Supervised By: Dr. John Deng. Fluoroscopy Time: 0.3 minutes. Cumulative Dose: 1.72 mGy. DAP: 0.470 Gycm2. Images: 1. FINDINGS: There is a spinal needle overlying the superior medial left glenohumeral joint. There is contrast in the shoulder joint capsule. FL/FL guidance in treatment room IMPRESSION: Fluoroscopy for pain management procedure.
== END 2022-08-05 06:15 | disposition home or self-care (01) ==
LOC: CF 06:14
PROVIDERS: Visit Provider Anesthesiology
DX: M19.012 Primary osteoarthritis, left shoulder (principal); M47.816 Spondylosis without myelopathy or radiculopathy, lumbar region; G57.90 Unspecified mononeuropathy of unspecified lower limb; M25.50 Pain in unspecified joint; F17.210 Nicotine dependence, cigarettes, uncomplicated
CPT/HCPCS: 20610; J3301

== ENCOUNTER → 2022-09-01 12:45 | Outpatient (BNVA) | payer OTHER, SELFPAY | PROVIDERS: PCP Internal Medicine; Visit Provider Anesthesiology | DX: M25.50 Pain in unspecified joint (principal); M19.012 Primary osteoarthritis, left shoulder; M47.816 Spondylosis without myelopathy or radiculopathy, lumbar region; G57.90 Unspecified mononeuropathy of unspecified lower limb | CPT/HCPCS: 99212 ==

== ENCOUNTER 2023-01-21 08:59 | Emergency (ER) | payer OTHER, SELFPAY ==
--- NOTE | ~2023-01-21 | CT_ITS ---
EXAMINATION: CT HEAD WITHOUT CONTRAST CT CERVICAL SPINE WITHOUT CONTRAST CLINICAL INFORMATION: Trauma. COMPARISON: CT head and cervical spine from 11/04/2021. TECHNIQUE: Contiguous axial imaging was performed from the skull base to vertex without intravenous administration of contrast. Contiguous axial imaging was performed from the upper chest through the skull base without intravenous administration of contrast. Coronal and sagittal reformats were obtained at the acquisition workstation. This CT examination was performed using dose optimization techniques as appropriate, variously including the following: *Automated exposure control. *Adjustment of mA and/or kV according to patient size (this includes techniques or standardized protocols for targeted exams where dose is matched to indication/reason for exam; i.e. extremities or head). *Use of iterative reconstruction technique. DLP: 853 mGy-cm FINDINGS: Head: There is no evidence of acute intracranial hemorrhage or edematous territorial infarction. Moss-white matter differentiation is preserved. There is no abnormal attenuation within the brain parenchyma. The ventricles are normal in morphology and size. No evidence for obstructive hydrocephalus. No abnormal mass effect or midline shift. No extra-axial fluid collections. No acute soft tissue or osseous abnormalities. The mastoid air cells and visualized paranasal sinuses are clear. Cervical Spine: The atlantooccipital and atlantoaxial articulations remain well aligned. Mild degenerative arthropathy of the atlantodental articulation. Mild degenerative anterolisthesis of C6 on C7 and C7 on T1. Otherwise, there is anatomic alignment of the vertebral bodies and posterior elements. No evidence of acute fracture or subluxation. The vertebral body heights are maintained. Moderate degenerative disc disease at C4-C5 and C5-C6. Facet and uncovertebral joint arthropathy leads to osseous encroachment on the neural foramina from C5-C6. There is no prevertebral soft tissue swelling. The thyroid gland is atrophic. The remaining cervical soft tissues are within normal limits. Mild centrilobular emphysema the visualized lung apices. CT/CT cervical spine wo IV con IMPRESSION: 1. No evidence of acute intracranial hemorrhage or edematous territorial infarction. 2. No evidence of acute fracture or traumatic subluxation of the cervical spine. 3. Mild to moderate multilevel degenerative spondyloarthropathy of the cervical spine.
--- NOTE | ~2023-01-21 | XR_ITS ---
EXAMINATION: XR CHEST CLINICAL INFORMATION: Cough COMPARISON: Chest radiograph 01/23/2022, CT chest 01/21/2022 TECHNIQUE: 2 views of the chest were obtained. FINDINGS: Lungs are hyperinflated compatible with COPD as seen previously. Heart size normal. No evidence of CHF. No infiltrates, effusions or lung masses are seen. XR/XR chest 2V IMPRESSION: COPD. No acute intrathoracic disease.
--- NOTE | 2023-01-21 09:01 | ECG_ITS ---
Test Reason : cp Blood Pressure : / mmHG Vent. Rate : 073 BPM Atrial Rate : 073 BPM P-R Int : 132 ms QRS Dur : 086 ms QT Int : 404 ms P-R-T Axes : 085 075 072 degrees QTc Int : 445 ms Normal sinus rhythm Minimal voltage criteria for LVH, may be normal variant ( [place] product ) Borderline ECG When compared with ECG of 23-JAN-2022 12:18, No significant change was found Referred By: Generic ED Physician Electronically Signed By:JC HAUSER
[2023-01-21 09:15] VITALS: BP 150/87; PULSE 75; RESP 22; TEMP 36.8; O2SAT 90; BMI 17.4
[2023-01-21 09:35] LABS: MANUAL DIFF FLAG NO
[2023-01-21 09:39] LABS: Basophils Absolute Auto 0.1 X10*3/uL (0.0-0.2); Basophils Percent Auto 0.6 % (0-2); Eosinophils Percent Auto 11.6 % (0-4); Hematocrit 45.4 % (37.0-47.0); Hemoglobin 15.2 g/dl (12.0-16.0); Imm Gran Abs Auto 0.02 X10*3/uL (0.00-0.03); Imm Gran Pct Auto 0.2 % (0.0-0.4); Lymphocytes Percent Auto 22.4 % (20-40); Mean Corpuscular HGB Conc 33.5 g/dl (31.0-35.0); Mean Corpuscular Hemoglobin 30.8 pg (27.0-33.0); Mean Corpuscular Volume 92.1 fL (80.0-98.0); Mean Platelet Volume 8.4 fL (9.4-12.3); Monocytes Absolute Auto 0.6 X10*3/uL (0.1-1.2); Monocytes Percent Auto 6.9 % (2-11); Neutrophils Absolute Auto 5.1 x10*3/uL (2.0-8.3); Neutrophils Percent Auto 58.3 % (45-73); Platelet Count 236 X10*3/uL (160-400); Red Blood Count 4.93 X10*6/uL (4.20-5.50); Red Cell Distribution Width 14.2 % (11.0-16.0); White Blood Count 8.7 X10*3/uL (4.8-10.8)
[2023-01-21 09:55] LABS: Alanine Aminotransferase 17 U/L (0-31); Albumin Level 4.5 g/dL (3.5-5.0); Alkaline Phosphatase 81 U/L (39-117); Anion Gap 16 (12-20); Aspartate Amino Transferase 30 U/L (5-31); Bilirubin Direct 0.3 mg/dL (0.0-0.5); Bilirubin Total 0.8 mg/dL (0.0-1.0); Blood Urea Nitrogen 8 mg/dL (9-16); Calcium 10.5 mg/dL (8.4-10.2); Carbon Dioxide 22 mmol/L (22-29); Chloride 109 mmol/L (96-108); Creatinine Clr Calc Pharmacy 52.1; Estimated Glomerular Filt Rate > 60; Glucose Random 119 mg/dL (60-115); Lipase 14 U/L (8-78); Sodium 142 mmol/L (135-145); Total Protein 7.7 g/dL (6.5-8.0)
[2023-01-21 09:59] LABS: COVID-19 Test Negative (Negative); IDNOW Serial# BCCEAD1C
[2023-01-21 10:08] LABS: Troponin-I High Sensitivity < 2.7 ng/L (<3.5-17.0)
--- NOTE | 2023-01-21 10:49 | ED.CHESTPAIN ---
HPI - Chest Pain General Chief Complaint: Chest Pain Stated Complaint: chest pain / sob Time Seen by Provider: 01/21/23 10:30 Source: patient Mode of arrival: ambulatory Limitations: no limitations History of Present Illness HPI narrative: This is a 57 years old female with history of COPD still smoking, presented to emergency department complaining of shortness of breath. She denies any fever chills she says she has been short of breath all night. She has history of PE she is anticoagulated with apixaban am a she also stated she had syncopal episode yesterday and hit the head. She is also complaining of chest pain MD complaint: chest pain Onset (ago): day(s) (1) Prior episodes: No Onset: during rest Pain location: substernal Exacerbating factors: nothing Context: recent illness Associated symptoms: dyspnea Related Data Home Medications Medication Instructions Recorded Confirmed ibuprofen 800 mg tablet 800 mg PO Q8H 06/11/22 06/11/22 Previous Rx's Medication Instructions Recorded pulse oximeter #1 ea 09/04/21 albuterol sulfate 90 mcg/actuation 2 puff inhalation Q4-6H PRN 02/18/22 aerosol inhaler shortness of breath or wheezing 30 days #1 ea umeclidinium 62.5 mcg-vilanterol 1 inh inhalation DAILY 30 days #1 02/18/22 25 mcg/actuation powdr for ea inhalation (Anoro Ellipta) enoxaparin 40 mg/0.4 mL 40 mg (0.4 mL) subcut DAILY 3 days 07/17/22 subcutaneous syringe (Lovenox) #1.2 mL apixaban 5 mg tablet (Eliquis) 5 mg PO BID #60 tabs 11/03/22 doxycycline monohydrate 100 mg 100 mg PO BID #14 caps 01/21/23 capsule prednisone 20 mg tablet 60 mg (3 x 20 mg) PO DAILY #12 tabs 01/21/23 Allergies Allergy/AdvReac Type Severity Reaction Status Date / Time penicillin V Allergy Intermediate rash Verified 01/21/23 09:19 Review of Systems Respiratory: Respiratory: Reports cough and Reports other (SOB) [facility] Past Medical History [facility] Narrative: COPD/PE Medical History Left shoulder pain Hearing loss DVT (deep venous thrombosis) (~09/03/21) Ankle pain Surgical History History of tonsillectomy History of tubal ligation Family History Family History Father HIV (human immunodeficiency virus infection) Mother HIV (human immunodeficiency virus infection) Sister Aortic heart murmur Brother HIV (human immunodeficiency virus infection) Sister No problems noted. Maternal Aunt Breast cancer Social History Social History Household Members: Children Housing: Apartment Are you a primary care management specialist to a significant other at home: No Do you presently have visiting nurse or other home services: No Alcohol intake: former Patient Tobacco Use Status: Current everyday Tobacco user Tobacco use type: Cigarette Cigarettes Per Day: 4 e-Cigarette/Vaping Use: Never Used Second Hand Smoke Exposure: No Substance Use Type: Marijuana Advance Directives: No Advance Directives Information Provided: Yes service: No Current occupational status: unemployed Current occupational exposures/hazards: No Cognitive needs: No Hearing needs: Yes Vision needs: Yes Physical Exam Vital Signs: Vital Signs: Last Vital Signs Temp 98.2 F 01/21/23 09:15 Pulse 60 01/21/23 12:19 Resp 18 01/21/23 12:19 BP 150/87 H 01/21/23 09:15 Pulse Ox 90 L 01/21/23 09:15 O2 Del Method Room Air 01/21/23 09:15 BMI result Body Mass Index 17.4 Const: General: cooperative Nutritional Appearance: well nourished Orientation/consciousness: patient oriented x3 Limitations: no limitations HEENT: Head: Yes normal to inspection Ears: hearing grossly normal bilaterally General nose exam: Normal external nose present Face and sinus: Yes normal facial exam Mouth: Normal oral and palatal mucosa present Throat: Yes posterior oropharynx normal Neck: Neck: Yes normal visual inspection Thyroid: Thyroid normal Resp: Effort & Inspection: tachypneic Auscultation: diminished lung sounds Cardio: Jugular venous distension: no JVD Palpation: normal PMI Rate: regular rate Rhythm: regular rhythm GI: Inspection: Yes normal to inspection Palpation (GI): Soft to palpation, not firm and nontender Percussion: Yes normal to percussion Skin: General skin exam: no rashes or lesions noted Lesions: no lesions Neuro: General: patient oriented x3 Course Reevaluation(s) Reevaluation #1: feels better Time: 11:41 Reevaluation #2: Re-examination of 15:48 a she is feeling better O2 sat checked personally by me 93% no tachypnea, patient will be discharged home on prednisone/doxycycline hi long discussion with the patient the daughter very comfortable with the plan care Time: 15:48 Medications Administered Discontinued Medications Generic Name Dose Route Start Last Admin Trade Name Freq PRN Reason Stop Dose Admin Albuterol Sulfate 2.5 mg 01/21/23 10:53 01/21/23 10:56 Albuterol Sulfate (0.083%) 2.5 Mg/3 Ml Vial.Neb INHALE 01/21/23 10:54 2.5 mg ONCE ONE Administration Albuterol Sulfate 2.5 mg 01/21/23 12:13 01/21/23 12:41 Albuterol Sulfate (0.083%) 2.5 Mg/3 Ml Vial.Neb INHALE 01/21/23 12:14 2.5 mg ONCE ONE Administration Methylprednisolone Sodium Succinate 125 mg 01/21/23 10:39 01/21/23 11:31 Methylprednisolone Sod Succ 125 Mg/2 Ml Vial IVPUSH 01/21/23 10:40 125 mg ONCE ONE Administration Medical Decision Making Medical Decision Making [facility] Narrative: Patient presented with shortness of breath and chest pain will do an EKG labs chest x-ray I reassessed Differential Diagnosis Differential Diagnoses: The differential diagnosis associated with the presentation includes Pneumonia/acute coronary seen Admission/Observation Consideration of admission/observation: Escalation of care including admission/observation considered Lab Data [facility] Lab Attestation statement: I reviewed the patient's lab results. Delta troponin flat 01/21/23 09:29 01/21/23 09:29 Labs: Lab Results 01/21/23 01/21/23 Range/Units 09:29 11:44 WBC 8.7 (4.8-10.8) X10*3/uL RBC 4.93 (4.20-5.50) X10*6/uL Hgb 15.2 (12.0-16.0) g/dl Hct 45.4 (37.0-47.0) % MCV 92.1 (80.0-98.0) fL MCH 30.8 (27.0-33.0) pg MCHC 33.5 (31.0-35.0) g/dl RDW 14.2 (11.0-16.0) % Plt Count 236 (160-400) X10*3/uL MPV 8.4 L (9.4-12.3) fL Immature Gran % (Auto) 0.2 (0.0-0.4) % Neut % (Auto) 58.3 (45-73) % Lymph % (Auto) 22.4 (20-40) % [place] % (Auto) 6.9 (2-11) % Eos % (Auto) 11.6 H (0-4) % Baso % (Auto) 0.6 (0-2) % Lymph # (Auto) 2.0 (1.2-4.9) X10*3/uL [place] # (Auto) 0.6 (0.1-1.2) X10*3/uL Eos # (Auto) 1.0 H (0.0-0.4) X10*3/uL Baso # (Auto) 0.1 (0.0-0.2) X10*3/uL Abs Immat Gran (auto) 0.02 (0.00-0.03) X10*3/uL Absolute Neuts (auto) 5.1 (2.0-8.3) x10*3/uL Absolute Nucleated RBC 0.000 (0.0-0.012) X10*3/uL Nucleated RBC % (auto) 0.0 (0.0-0.2) /100WBC Sodium 142 (135-145) mmol/L Potassium 5.0 (3.3-5.1) mmol/L Chloride 109 H (96-108) mmol/L Carbon Dioxide 22 (22-29) mmol/L Anion Gap 16 (12-20) BUN 8 L (9-16) mg/dL Creatinine 0.81 (0.5-1.4) mg/dL Estim Creat Clear Calc 52.1 Estimated GFR > 60 Random Glucose 119 H (60-115) mg/dL Calcium 10.5 H (8.4-10.2) mg/dL Total Bilirubin 0.8 (0.0-1.0) mg/dL Direct Bilirubin 0.3 (0.0-0.5) mg/dL AST 30 (5-31) U/L ALT 17 (0-31) U/L Alkaline Phosphatase 81 (39-117) U/L Troponin I High Sens < 2.7 < 2.7 (<3.5-17.0) ng/L Total Protein 7.7 (6.5-8.0) g/dL Albumin 4.5 (3.5-5.0) g/dL Lipase 14 (8-78) U/L COVID-19 (ELISE) Negative (Negative) COVID-19 Clin Com See Note Independent Interpretation I performed an independent interpretation of an: EKG Interpretation: Normal EKG normal sinus rhythm rate [address]-T changes Independent Historian Clinical information obtained from an independent historian. History obtained from or confirmed by: Other (daughter) Chronic Conditions Patient?s care impacted by: Other (COPD) Discharge Plan Discharge Clinical Impression: COPD exacerbation Patient Disposition: Home, Self-Care Instructions: COPD (Chronic Obstructive Pulmonary Disease) (DC) Additional Instructions: follow up with Primary Care Doctor return if worse Prescriptions: New prednisone 20 mg tablet 60 mg PO DAILY Qty: 12 0RF doxycycline monohydrate 100 mg capsule 100 mg PO BID Qty: 14 0RF No Action enoxaparin [Lovenox] 40 mg/0.4 mL syringe 40 mg subcut DAILY 3 Days Qty: 1.2 0RF Eliquis 5 mg tablet 5 mg PO BID Qty: 60 3RF ibuprofen 800 mg tablet 800 mg PO Q8H (DME) pulse oximeter See Rx Instructions .Route .MEDSUPPLY Qty: 1 0RF Rx Instructions: As directed Anoro Ellipta 62.5-25 mcg/actuation blister with device 1 inh inhalation DAILY 30 Days Qty: 1 6RF albuterol sulfate 90 mcg/actuation HFA aerosol inhaler 2 puff inhalation Q4-6H PRN (Reason: shortness of breath or wheezing) 30 Days Qty: 1 6RF
[2023-01-21 10:56] VITALS: PULSE 64; RESP 18; O2SAT 94
[2023-01-21] MEDS: Albuterol Sulfate (0.083%) 2.5 MG/3 ML VIAL.NEB INHALE ×2 (10:56→12:41)
[2023-01-21] MEDS: methylPREDNISolone Sod Succ 125 MG/2 ML VIAL IVPUSH (11:31)
[2023-01-21 12:19] VITALS: PULSE 60; RESP 18; O2SAT 94
[2023-01-21 12:19] LABS: Troponin-I High Sensitivity < 2.7 ng/L (<3.5-17.0)
== END 2023-01-21 16:08 | disposition home or self-care (01) ==
PROVIDERS: Emergency Provider Emergency Medicine; PCP Internal Medicine
DX: J44.1 Chronic obstructive pulmonary disease with (acute) exacerbation (principal); R07.89 Other chest pain; R06.02 Shortness of breath; R51.9 Headache, unspecified; M54.2 Cervicalgia; F17.210 Nicotine dependence, cigarettes, uncomplicated; Z20.822 Contact with and (suspected) exposure to COVID-19; Z20.828 Contact with and (suspected) exposure to other viral communicable diseases; Z71.6 Tobacco abuse counseling; Z79.899 Other long term (current) drug therapy
CPT/HCPCS: 36415; 70450; 71046; 72125; 80048; 80076; 83690; 84484; 85025; 87635; 93005; 94640; 94664; 96374; 99284; J2930

== ENCOUNTER 2023-03-29 12:23 | Emergency (ER) | payer OTHER, SELFPAY ==
--- NOTE | 2023-03-29 | ECG_ITS ---
Test Reason : CHEST PAIN Blood Pressure : / mmHG Vent. Rate : 070 BPM Atrial Rate : 070 BPM P-R Int : 140 ms QRS Dur : 084 ms QT Int : 416 ms P-R-T Axes : 083 064 071 degrees QTc Int : 449 ms Normal sinus rhythm Normal ECG When compared with ECG of 21-JAN-2023 09:03, No significant change was found Referred By: Nicolette Phillips Electronically Signed By:Jarrett Feldman
--- NOTE | ~2023-03-29 | XR_ITS ---
EXAMINATION: XR CHEST CLINICAL INFORMATION: Cough and SOB. COMPARISON: None available. TECHNIQUE: 2 views of the chest were obtained. FINDINGS: The lungs are hyperinflated but clear of acute process. There are nipple shadows overlying both lower lungs. The heart size and pulmonary vascularity is normal. No gross bony abnormality seen. XR/XR chest 2V IMPRESSION: Hyperinflated lungs without acute process.
--- NOTE | 2023-03-29 12:37 | ED.URI ---
HPI - URI/Sore Throat General Chief Complaint: Dyspnea Stated Complaint: Diff Breathing COPD COVID Exposure Time Seen by Provider: 03/29/23 13:05 Source: patient and family (son) Mode of arrival: ambulatory Limitations: no limitations History of Present Illness HPI Narrative: Patient is a 57-year-old female with history of COPD, tobacco smoker, PE on AC therapy presenting to the emergency department with complaint of nonproductive cough, shortness of breath and fatigue for the past 2 days. Recent exposure to COVID. Patient also complains of chest pain with coughing also for 2 days. Not checked temperature with thermometer. Denies ear pain or sore throat. Denies abdominal pain, nausea, vomiting, diarrhea. MD elicited complaint: cough Pertinent past history: COPD and other (PE, anticoagulated) Onset (ago): day(s) Consistency: constant Severity: similar to previous episodes Able to tolerate fluids by mouth: Yes Exacerbating factors: other (coughing) Relieving factors: nothing Context: sick contacts Associated symptoms: chills, cough, chest pain and shortness of breath Treatments prior to arrival: none Related Data Home Medications Medication Instructions Recorded Confirmed ibuprofen 800 mg tablet 800 mg PO Q8H 06/11/22 06/11/22 Previous Rx's Medication Instructions Recorded pulse oximeter #1 ea 09/04/21 umeclidinium 62.5 mcg-vilanterol 1 inh inhalation DAILY 30 days #1 02/18/22 25 mcg/actuation powdr for ea inhalation (Anoro Ellipta) enoxaparin 40 mg/0.4 mL 40 mg (0.4 mL) subcut DAILY 3 days 07/17/22 subcutaneous syringe (Lovenox) #1.2 mL apixaban 5 mg tablet (Eliquis) 5 mg PO BID #60 tabs 11/03/22 doxycycline monohydrate 100 mg 100 mg PO BID #14 caps 01/21/23 capsule prednisone 20 mg tablet 60 mg (3 x 20 mg) PO DAILY #12 tabs 01/21/23 albuterol sulfate 90 mcg/actuation 2 puff PO Q4-6H PRN shortness of 02/13/23 aerosol inhaler (Ventolin HFA) breath or wheezing #18 ea Allergies Allergy/AdvReac Type Severity Reaction Status Date / Time penicillin V Allergy Intermediate rash Verified 03/29/23 12:43 Review of Systems Review of Systems: As per HPI. Yes all other systems are reviewed and are negative Constitutional: Constitutional: Reports as per HPI [facility] Past Medical History Medical History Left shoulder pain Hearing loss DVT (deep venous thrombosis) (~09/03/21) Ankle pain Surgical History History of tonsillectomy History of tubal ligation Family History Family History Father HIV (human immunodeficiency virus infection) Mother HIV (human immunodeficiency virus infection) Sister Aortic heart murmur Brother HIV (human immunodeficiency virus infection) Sister No problems noted. Maternal Aunt Breast cancer Social History Social History Household Members: Children Housing: Apartment Are you a primary care coordination manager to a significant other at home: No Do you presently have visiting nurse or other home services: No Alcohol intake: former Patient Tobacco Use Status: Current everyday Tobacco user Tobacco use type: Cigarette Cigarettes Per Day: 4 e-Cigarette/Vaping Use: Never Used Second Hand Smoke Exposure: No Substance Use Type: Marijuana Advance Directives: No Advance Directives Information Provided: Yes service: No Current occupational status: unemployed Current occupational exposures/hazards: No Cognitive needs: No Hearing needs: Yes Vision needs: Yes Physical Exam Vital Signs: Vital Signs: Last Vital Signs Temp 98.6 F 03/29/23 12:38 Pulse 73 03/29/23 15:02 Resp 16 03/29/23 15:02 BP 135/84 03/29/23 12:38 Pulse Ox 97 03/29/23 15:02 O2 Del Method Room Air 03/29/23 15:02 BMI result Body Mass Index 15.2 Vital signs have been reviewed and appear to be correct. Blood pressure normal. Heart rate normal. Respiratory rate normal. Temperature normal. Oxygen saturation normal. Const: General: cooperative, healthy appearing and no acute distress Orientation/consciousness: oriented to person, oriented to place, oriented to time and patient oriented x3 Limitations: no limitations HEENT: Head: Yes normocephalic and Yes atraumatic Ears: external ears normal General nose exam: Normal external nose present Face and sinus: Yes face symmetric Mouth: oropharynx normal and moist mucous membranes Throat: Yes uvula midline Eyes: Pupils: Equal, round and reactive pupils present Neck: Neck: Yes normal visual inspection and Yes supple Resp: Effort & Inspection: normal respiratory effort and able to speak in complete sentences Auscultation: clear to auscultation bilaterally Cardio: Rate: regular rate Rhythm: regular rhythm Heart sounds: S1 normal heart sound present and S2 normal heart sound present GI: Palpation (GI): Soft to palpation and nontender Auscultation: normoactive bowel sounds : General: Yes no CVA tenderness Back/Spine/Pelvis: Back: no CVA tenderness Skin: General skin exam: elasticity normal and turgor normal Neuro: General: oriented to person, oriented to place, oriented to time, patient oriented x3, moves all extremities, no focal motor deficits and CN's II-XI intact bilaterally Cranial nerves: Yes Equal, round and reactive pupils present Cognition (Neuro): normal cognition Extrem: General: Yes full ROM, Yes no pedal edema and Yes no calf tenderness Psych: Mental Status: mental status grossly normal Affect: normal affect Thought process: Normal thought process present Course Course Course Narrative: This is a rapid medical exam. Deferred additional HPI, ROS, PE to primary provider. 57 yo female with history of COPD, tobacco smoker, PE on AC therapy here with complaints of 3 days of shortness of breath, cough, chills. Feeling COPD is flaring up. Had COVID exposure recently. LS CTA Will check viral testing, CXR VSS Medical Decision Making Medical Decision Making MDM Narrative: Patient is a 57-year-old female with history of COPD, tobacco smoker, PE on AC therapy presenting to the emergency department with complaint of nonproductive cough, shortness of breath and fatigue for the past 2 days. On exam patient is awake, A+Ox3, VS WNL, afebrile, in no acute distress, normal neurological exam without focal deficits, physical exam findings as above. Given reported symptoms and physical exam findings, initial differential includes viral illness, COVID, flu, RSV, bronchitis, pneumonia. Less likely ACS but will obtain EKG and troponin. Labs notable for negative troponin. EKG shows normal sinus rhythm. X-ray notable for no evidence of pneumonia. My interpretation is in agreement with the radiologist's interpretation. Plan was to treat patient for COPD exacerbation with abx and prednisone, however, patient and son noted to have left ED without completing treatmetnt. Differential Diagnosis Differential Diagnoses: The differential diagnosis associated with the presentation includes As per [facility] Lab Data [facility] Lab Attestation statement: I reviewed the patient's lab results. As per [facility] Labs: Lab Results 03/29/23 03/29/23 Range/Units 13:02 14:24 Troponin I High Sens < 2.7 (<3.5-17.0) ng/L Influenza Type A (PCR) NEGATIVE (Negative) Influenza Type B (PCR) NEGATIVE (Negative) RSV RNA Qual (PCR) NEGATIVE (Negative) SARS-CoV-2 RNA (RT-PCR) NEGATIVE (Negative) Independent Interpretation I performed an independent interpretation of an: EKG (Normal sinus rhythm) and Plain X-Ray (no evidence of pneumonia) Radiology Impression Discussion of test interpretation with radiology: I have reviewed the radiologist's reading. Radiologist Impression: XR/XR chest 2V IMPRESSION: Hyperinflated lungs without acute process. External Record Review External record reviewed: Inpatient record, Office record and Outpatient record Prescription Management I considered prescription management with: Antibiotic and Other Discharge Plan Discharge Clinical Impression: Cough, COPD exacerbation Patient Disposition: Left W/O Completing Treatment Instructions: COPD (Chronic Obstructive Pulmonary Disease) (DC) Additional Instructions: You were evaluated in the emergency department today for cough and shortness of breath. Your testing including EKG, chest x-ray, and labs do not show evidence of medical conditions requiring emergent treatment this time. You are being discharged on doxycycline which an antibiotic and prednisone which is a steroid for a COPD exacerbation. Please follow-up with your primary care provider within the next 2 days. Return to the emergency department if you develop worsening chest pain, shortness of breath, difficulty breathing, fainting, or any other concerning symptoms. Prescriptions: No Action enoxaparin [Lovenox] 40 mg/0.4 mL syringe 40 mg subcut DAILY 3 Days Qty: 1.2 0RF Eliquis 5 mg tablet 5 mg PO BID Qty: 60 3RF albuterol sulfate [Ventolin HFA] 90 mcg/actuation HFA aerosol inhaler 2 puff PO Q4-6H PRN (Reason: shortness of breath or wheezing) Qty: 18 6RF prednisone 20 mg tablet 60 mg PO DAILY Qty: 12 0RF doxycycline monohydrate 100 mg capsule 100 mg PO BID Qty: 14 0RF ibuprofen 800 mg tablet 800 mg PO Q8H (DME) pulse oximeter See Rx Instructions .Route .MEDSUPPLY Qty: 1 0RF Rx Instructions: As directed Anoro Ellipta 62.5-25 mcg/actuation blister with device 1 inh inhalation DAILY 30 Days Qty: 1 6RF
[2023-03-29 12:38] VITALS: BP 135/84; PULSE 74; RESP 16; TEMP 37; O2SAT 96; BMI 15.2
[2023-03-29 13:47] LABS: Influenza A PCR NEGATIVE (Negative); Influenza B PCR NEGATIVE (Negative); Resp Syncy Virus RNA Qual PCR NEGATIVE (Negative); SARS COV2 PCR INHOUSE NEGATIVE (Negative)
--- NOTE | 2023-03-29 14:05 | ECG_ITS ---
Test Reason : REPEAT/CP Blood Pressure : / mmHG Vent. Rate : 065 BPM Atrial Rate : 065 BPM P-R Int : 134 ms QRS Dur : 080 ms QT Int : 424 ms P-R-T Axes : 086 070 084 degrees QTc Int : 440 ms Normal sinus rhythm Normal ECG When compared with ECG of 29-MAR-2023 13:47, No significant change was found Referred By: Nicolette Phillips Electronically Signed By:Jarrett Feldman
--- NOTE | 2023-03-29 14:38 | PC.NURSE ---
patient continues to endorse extreme chest pain with coughing making the pain even worse. to obtain 3rd ekg per provider's order. troponin pending
[2023-03-29 14:49] LABS: Troponin-I High Sensitivity < 2.7 ng/L (<3.5-17.0)
--- NOTE | 2023-03-29 14:55 | PC.NURSE ---
requesting to wear oxygen stating that she cannot breath and has been requesting oxygen. this RN to bedside to obtain 02 saturation - found to be 97% on room air. encouraged to take slow deep breaths and that she does not require oxygen at this time. patient upset with this information
[2023-03-29 15:02] VITALS: PULSE 73; RESP 16; O2SAT 97
--- NOTE | 2023-03-29 15:23 | PC.NURSE ---
patient was noted to have walked off unit prior to completing her treatment.
== END 2023-03-29 15:24 | disposition left against medical advice (07) ==
PROVIDERS: Nurse Practitioner Family; Registered Nurse Emergency; Emergency Provider Emergency Medicine Emergency Medical Services; PCP Internal Medicine
DX: J44.1 Chronic obstructive pulmonary disease with (acute) exacerbation (principal); R06.02 Shortness of breath; Z20.822 Contact with and (suspected) exposure to COVID-19; Z20.828 Contact with and (suspected) exposure to other viral communicable diseases; F17.210 Nicotine dependence, cigarettes, uncomplicated; Z86.711 Personal history of pulmonary embolism; Z86.718 Personal history of other venous thrombosis and embolism; Z79.01 Long term (current) use of anticoagulants
CPT/HCPCS: 0241U; 36415; 71046; 84484; 93005; 99283; 99285

== ENCOUNTER → 2023-03-29 13:47 | Outpatient (BNV) | payer OTHER, SELFPAY | PROVIDERS: Emergency Provider Emergency Medicine Emergency Medical Services; PCP Internal Medicine; Visit Provider Internal Medicine Cardiovascular Disease | DX: R07.9 Chest pain, unspecified (principal) | CPT/HCPCS: 93010 ==

== ENCOUNTER 2023-03-30 11:10 | Emergency (ER) | payer OTHER, SELFPAY ==
[2023-03-30 11:20] VITALS: BP 160/92; PULSE 84; O2SAT 93
[2023-03-30 11:24] VITALS: BP 131/87; PULSE 78; RESP 19; TEMP 36.9; O2SAT 97; BMI 17.6
--- NOTE | 2023-03-30 11:33 | ED_ITS ---
HPI - General Adult General Chief complaint: Upper Respiratory Symptoms Stated complaint: SOB,DIZZY PER EMS Time Seen by Provider: 03/30/23 11:26 Source: patient, family, EMS, RN notes reviewed and old records reviewed Mode of arrival: EMS History of Present Illness HPI narrative: 57-year-old female with a past medical history of COPD, tobacco smoker, PE on Eliquis, presenting to the ED via EMS complaining of chest pain, SOB, productive cough x5 days. Patient was seen and treated in the our ED yesterday for similar symptoms, had negative CXR, viral testing, and troponin. Patient left without completing treatment. Reports continued/worsening symptoms. Denies fever, chills, abdominal pain, nausea/vomiting, pedal edema, recent travel. Related Data Home Medications Medication Instructions Recorded Confirmed ibuprofen 800 mg tablet 800 mg PO Q8H 06/11/22 06/11/22 Previous Rx's Medication Instructions Recorded pulse oximeter #1 ea 09/04/21 umeclidinium 62.5 mcg-vilanterol 1 inh inhalation DAILY 30 days #1 02/18/22 25 mcg/actuation powdr for ea inhalation (Anoro Ellipta) enoxaparin 40 mg/0.4 mL 40 mg (0.4 mL) subcut DAILY 3 days 07/17/22 subcutaneous syringe (Lovenox) #1.2 mL apixaban 5 mg tablet (Eliquis) 5 mg PO BID #60 tabs 11/03/22 doxycycline monohydrate 100 mg 100 mg PO BID #14 caps 01/21/23 capsule prednisone 20 mg tablet 60 mg (3 x 20 mg) PO DAILY #12 tabs 01/21/23 albuterol sulfate 90 mcg/actuation 2 puff PO Q4-6H PRN shortness of 02/13/23 aerosol inhaler (Ventolin HFA) breath or wheezing #18 ea albuterol sulfate 2.5 mg/0.5 mL 5 mg inhalation Q4H PRN shortness 03/30/23 solution for nebulization of breath or wheezing #30 ea Allergies Allergy/AdvReac Type Severity Reaction Status Date / Time penicillin V Allergy Intermediate rash Verified 03/30/23 11:24 Review of Systems 2 Review of Systems: Constitutional: No Fever, No Chills ENT/Mouth: No Ear Pain, No Nasal Congestion, No sore throat, No Rhinorrhea, No Swallowing Difficulty Cardiovascular: No Chest Pain, No SOB Respiratory: +Cough, + Sputum, No Wheezing Gastrointestinal: No Nausea, No Vomiting, No Diarrhea, No Constipation, No Abdominal pain Genitourinary: No Dysuria, No Urinary Frequency, No Hematuria, No Urinary Incontinence/retention, No Flank Pain Musculoskeletal: No joint pain, No Myalgias, No Joint Swelling Skin: No Skin Lesions, No rash Neuro: No Weakness Psych: +anxiety Yes all other systems are reviewed and are negative Constitutional: Constitutional: Reports as per [facility] Past Medical History Attestation statement: The following information was validated with the patient. Source: old records reviewed Medical History Left shoulder pain Hearing loss DVT (deep venous thrombosis) (~09/03/21) Ankle pain Surgical History History of tonsillectomy History of tubal ligation Family History Family History Father HIV (human immunodeficiency virus infection) Mother HIV (human immunodeficiency virus infection) Sister Aortic heart murmur Brother HIV (human immunodeficiency virus infection) Sister No problems noted. Maternal Aunt Breast cancer Social History Social History Household Members: Children Housing: Apartment Are you a primary patient care assistant to a significant other at home: No Do you presently have visiting nurse or other home services: No Alcohol intake: former Patient Tobacco Use Status: Current everyday Tobacco user Tobacco use type: Cigarette Cigarettes Per Day: 4 e-Cigarette/Vaping Use: Never Used Second Hand Smoke Exposure: No Substance Use Type: Marijuana Advance Directives: No service: No Current occupational status: unemployed Current occupational exposures/hazards: No Cognitive needs: No Hearing needs: Yes Vision needs: Yes Physical Exam ED Vital Signs: Vital Signs - 24 hr 03/30/23 11:24 03/30/23 12:13 03/30/23 12:44 Temperature 98.5 F Pulse Rate 78 79 Respiratory Rate 19 18 Blood Pressure 131/87 Pulse Oximetry 97 97 Oxygen Delivery Method Room Air Room Air 03/30/23 13:37 Temperature 98.7 F Pulse Rate 72 Respiratory Rate 17 Blood Pressure 127/80 Pulse Oximetry 95 Oxygen Delivery Method Room Air BMI result Body Mass Index 17.6 Const General: cooperative, no acute distress and anxious Orientation/consciousness: patient oriented x3 Limitations: no limitations HENMT Head: Yes normal to inspection and Yes atraumatic Ears: hearing grossly normal bilaterally General nose exam: Normal external nose present Face and sinus: Yes normal facial exam Eyes General: appearance normal, both eyes and all related structures EOM: EOMs intact bilaterally Neck Neck: Yes normal visual inspection and Yes no meningeal signs Resp Effort & Inspection: normal respiratory effort and no respiratory distress Auscultation: clear to auscultation bilaterally, no crackles and no wheezes Cardio Rate: regular rate Heart sounds: S1 normal heart sound present and S2 normal heart sound present Skin Rashes: no rashes Wounds: no wounds Neuro General: patient oriented x3, tone normal and no meningeal signs Cranial nerves: Yes CN's II-XII intact bilaterally Gait exam (Neuro): Normal gait present Extrem General: Yes normal to inspection, Yes no pedal edema and Yes no calf tenderness Course Course Course Narrative: -labs reassuring. troponin negative -1333--on re-evaluation patient is sleeping comfortably. Reports symptomatic improvement. Safe for discharge home at this time with close PCP follow-up Results discussed with patient including worrisome signs and symptoms and strict return precautions, and when to return to the emergency department. They verbalized understanding and feel safe for discharge at this time. Medications Administered Discontinued Medications Generic Name Dose Route Start Last Admin Trade Name Freq PRN Reason Stop Dose Admin Albuterol/Ipratropium 3 ml 03/30/23 11:43 03/30/23 12:13 Albuterol/Iprat 2.5/0.5mg 3 Ml Ampul.Neb INHALE 03/30/23 11:44 3 ml ONCE ONE Administration Hydroxyzine HCl 25 mg 03/30/23 11:43 03/30/23 11:56 Hydroxyzine Hcl 25 Mg Tablet PO 03/30/23 11:44 25 mg ONCE ONE Administration Medical Decision Making Medical Decision Making MDM Narrative: 57-year-old female with a past medical history of COPD, tobacco smoker, PE on Eliquis, presenting to the ED via EMS complaining of chest pain, SOB, productive cough x5 days. On exam vital signs stable, NAD, anxious, tachypneic from anxiety, lungs CTA, no pedal edema/calf tenderness. Concern for anxiety vs viral syndrome. Symptoms atypical for ACS/PE or CHF Plan: EKG, labs, DuoNeb, p.o. Atarax, reassess Please refer to course for remaining clinical decision making, interpretation of labs/imaging results, and discussions with consultants and/or family members. Differential Diagnosis Differential Diagnoses: The differential diagnosis associated with the presentation includes As above Admission/Observation Consideration of admission/observation: Escalation of care including admission/observation considered Lab Data MDM Lab Attestation statement: I reviewed the patient's lab results. 03/30/23 11:59 03/30/23 11:59 Labs: Lab Results 03/30/23 Range/Units 11:59 WBC 6.8 (4.8-10.8) X10*3/uL RBC 4.89 (4.20-5.50) X10*6/uL Hgb 15.3 (12.0-16.0) g/dl Hct 45.3 (37.0-47.0) % MCV 92.6 (80.0-98.0) fL MCH 31.3 (27.0-33.0) pg MCHC 33.8 (31.0-35.0) g/dl RDW 14.0 (11.0-16.0) % Plt Count 272 (160-400) X10*3/uL MPV 8.3 L (9.4-12.3) fL Immature Gran % (Auto) 0.1 (0.0-0.4) % Neut % (Auto) 50.2 (45-73) % Lymph % (Auto) 30.6 (20-40) % [place] % (Auto) 9.1 (2-11) % Eos % (Auto) 9.3 H (0-4) % Baso % (Auto) 0.7 (0-2) % Lymph # (Auto) 2.1 (1.2-4.9) X10*3/uL [place] # (Auto) 0.6 (0.1-1.2) X10*3/uL Eos # (Auto) 0.6 H (0.0-0.4) X10*3/uL Baso # (Auto) 0.1 (0.0-0.2) X10*3/uL Abs Immat Gran (auto) 0.01 (0.00-0.03) X10*3/uL Absolute Neuts (auto) 3.4 (2.0-8.3) x10*3/uL Absolute Nucleated RBC 0.000 (0.0-0.012) X10*3/uL Nucleated RBC % (auto) 0.0 (0.0-0.2) /100WBC Sodium 143 (135-145) mmol/L Potassium 4.7 (3.3-5.1) mmol/L Chloride 107 (96-108) mmol/L Carbon Dioxide 26 (22-29) mmol/L Anion Gap 15 (12-20) BUN 11 (9-16) mg/dL Creatinine 0.86 (0.5-1.4) mg/dL Estim Creat Clear Calc 51.3 Estimated GFR > 60 Random Glucose 104 (60-115) mg/dL Calcium 10.1 (8.4-10.2) mg/dL Magnesium 2.0 (1.6-2.6) mg/dL Total Bilirubin 0.8 (0.0-1.0) mg/dL Direct Bilirubin 0.2 (0.0-0.5) mg/dL AST 25 (5-31) U/L ALT 14 (0-31) U/L Alkaline Phosphatase 76 (39-117) U/L Troponin I High Sens < 2.7 (<3.5-17.0) ng/L B-Natriuretic Peptide < 10 (<100) pg/mL Total Protein 7.6 (6.5-8.0) g/dL Albumin 5.6 H (3.5-5.0) g/dL Independent Interpretation I performed an independent interpretation of an: EKG Radiology Impression Discussion of test interpretation with radiology: I have reviewed the radiologist's reading. External Record Review External record reviewed: Inpatient record, Office record, Outpatient record, Prior outpatient labs, Prior outpatient radiology, Primary care record and Outside ED record Tests considered The following testing was considered but not selected: Repeat viral testing and CXR not needed at this time as were performed yesterday Chronic Conditions Patient?s care impacted by: Other (COPD) Discharge Plan Discharge Clinical Impression: Shortness of breath Patient Disposition: Home, Self-Care Instructions: Shortness of Breath (ED) Additional Instructions: Your blood work is reassuring. Continue to use your inhalers and home medications and neb machine at home Follow up with her doctor If symptoms persist or worsen return to the ED Prescriptions: New albuterol sulfate 2.5 mg/0.5 mL solution for nebulization 5 mg inhalation Q4H PRN (Reason: shortness of breath or wheezing) Qty: 30 0RF No Action enoxaparin [Lovenox] 40 mg/0.4 mL syringe 40 mg subcut DAILY 3 Days Qty: 1.2 0RF Eliquis 5 mg tablet 5 mg PO BID Qty: 60 3RF albuterol sulfate [Ventolin HFA] 90 mcg/actuation HFA aerosol inhaler 2 puff PO Q4-6H PRN (Reason: shortness of breath or wheezing) Qty: 18 6RF prednisone 20 mg tablet 60 mg PO DAILY Qty: 12 0RF doxycycline monohydrate 100 mg capsule 100 mg PO BID Qty: 14 0RF ibuprofen 800 mg tablet 800 mg PO Q8H (DME) pulse oximeter See Rx Instructions .Route .MEDSUPPLY Qty: 1 0RF Rx Instructions: As directed Anoro Ellipta 62.5-25 mcg/actuation blister with device 1 inh inhalation DAILY 30 Days Qty: 1 6RF Referrals: Shiloh Pozo MD [Primary Care Provider] - 5 days Stand Alone Forms: Work/School Release Interventions: ED Discharge Assessment Last Done: 03/30/23 13:52 Discharge Date/Time: 03/30/23 13:54
--- NOTE | 2023-03-30 11:43 | ECG_ITS ---
Test Reason : SOB Blood Pressure : / mmHG Vent. Rate : 063 BPM Atrial Rate : 063 BPM P-R Int : 138 ms QRS Dur : 080 ms QT Int : 406 ms P-R-T Axes : 084 067 083 degrees QTc Int : 415 ms Normal sinus rhythm Normal ECG When compared with ECG of 29-MAR-2023 14:11, No significant change was found Referred By: Freya Cowan Electronically Signed By:Jarrett Feldman
[2023-03-30] MEDS: hydrOXYzine HCL 25 MG TABLET PO (11:56)
[2023-03-30 12:05] LABS: MANUAL DIFF FLAG NO
[2023-03-30 12:08] LABS: Basophils Absolute Auto 0.1 X10*3/uL (0.0-0.2); Basophils Percent Auto 0.7 % (0-2); Eosinophils Absolute Auto 0.6 X10*3/uL (0.0-0.4); Eosinophils Percent Auto 9.3 % (0-4); Hematocrit 45.3 % (37.0-47.0); Hemoglobin 15.3 g/dl (12.0-16.0); Imm Gran Abs Auto 0.01 X10*3/uL (0.00-0.03); Imm Gran Pct Auto 0.1 % (0.0-0.4); Lymphocytes Absolute Auto 2.1 X10*3/uL (1.2-4.9); Lymphocytes Percent Auto 30.6 % (20-40); Mean Corpuscular HGB Conc 33.8 g/dl (31.0-35.0); Mean Corpuscular Hemoglobin 31.3 pg (27.0-33.0); Mean Corpuscular Volume 92.6 fL (80.0-98.0); Mean Platelet Volume 8.3 fL (9.4-12.3); Monocytes Absolute Auto 0.6 X10*3/uL (0.1-1.2); Monocytes Percent Auto 9.1 % (2-11); Neutrophils Absolute Auto 3.4 x10*3/uL (2.0-8.3); Neutrophils Percent Auto 50.2 % (45-73); Platelet Count 272 X10*3/uL (160-400); Red Blood Count 4.89 X10*6/uL (4.20-5.50); White Blood Count 6.8 X10*3/uL (4.8-10.8)
--- NOTE | 2023-03-30 12:11 | PC.NURSE ---
Respiratory at bedside to administer breathing treatment.
[2023-03-30 12:13] VITALS: PULSE 79; RESP 18; O2SAT 96
[2023-03-30] MEDS: Albuterol/Iprat 2.5/0.5MG 3 ML AMPUL.NEB INHALE (12:13)
[2023-03-30 12:22] LABS: Alanine Aminotransferase 14 U/L (0-31); Albumin Level 5.6 g/dL (3.5-5.0); Alkaline Phosphatase 76 U/L (39-117); Anion Gap 15 (12-20); Aspartate Amino Transferase 25 U/L (5-31); Bilirubin Direct 0.2 mg/dL (0.0-0.5); Bilirubin Total 0.8 mg/dL (0.0-1.0); Blood Urea Nitrogen 11 mg/dL (9-16); Calcium 10.1 mg/dL (8.4-10.2); Carbon Dioxide 26 mmol/L (22-29); Chloride 107 mmol/L (96-108); Creatinine Clr Calc Pharmacy 51.3; Estimated Glomerular Filt Rate > 60; Glucose Random 104 mg/dL (60-115); Potassium 4.7 mmol/L (3.3-5.1); Sodium 143 mmol/L (135-145); Total Protein 7.6 g/dL (6.5-8.0)
[2023-03-30 12:27] LABS: B Type Natriuretic Peptide < 10 pg/mL (<100)
[2023-03-30 12:29] LABS: Troponin-I High Sensitivity < 2.7 ng/L (<3.5-17.0)
--- NOTE | 2023-03-30 12:43 | PC.NURSE ---
Status post breathing treatment, patient reports her breathing feels more controlled. Denies SOB. Reports a pinching sensation to left chest if she breathes too deeply. Sating 97% on RA, respirations unlabored. Call cueto within reach.
[2023-03-30 12:44] VITALS: O2SAT 97
[2023-03-30 13:37] VITALS: BP 127/80; PULSE 72; RESP 17; TEMP 37.1; O2SAT 95
== END 2023-03-30 13:54 | disposition home or self-care (01) ==
PROVIDERS: Physician Assistant; Emergency Provider Emergency Medicine; PCP Internal Medicine
DX: R06.02 Shortness of breath (principal); J44.9 Chronic obstructive pulmonary disease, unspecified; Z86.718 Personal history of other venous thrombosis and embolism; Z86.711 Personal history of pulmonary embolism; Z79.01 Long term (current) use of anticoagulants; Z79.899 Other long term (current) drug therapy
CPT/HCPCS: 36415; 80048; 80076; 83735; 83880; 84484; 85025; 93005; 94640; 99284; 99285

== ENCOUNTER → 2023-03-30 11:43 | Outpatient (BNV) | payer OTHER, SELFPAY | PROVIDERS: Emergency Provider Emergency Medicine; PCP Internal Medicine; Visit Provider Internal Medicine Cardiovascular Disease | DX: R06.02 Shortness of breath (principal) | CPT/HCPCS: 93010 ==

== ENCOUNTER 2023-05-20 01:06 | Emergency (ER) | payer OTHER, SELFPAY ==
[2023-05-20 01:11] VITALS: BP 146/80; PULSE 72; O2SAT 98
[2023-05-20 01:20] VITALS: BP 103/64; PULSE 60; RESP 18; TEMP 36.3; O2SAT 98; BMI 17.3
--- NOTE | 2023-05-20 01:24 | ED_ITS ---
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 She felt a pull in the L neck that has progressively gotten tighter and spasmed. She notes no numbness or weakness but she cannot sleep or get comfortable. She continued to work with the client over the next couple of days and has exacerbated the pain. MD complaint: neck pain and neck injury Onset (ago): day(s) (few) Place: work Radiation: left lateral Severity: severe Quality: spasming and throbbing Duration: constant Relieving factors: remaining still Exacerbating factors: movement of neck Context: lifting Associated symptoms: none Treatments prior to arrival: ibuprofen Related Data Home Medications Medication Instructions Recorded Confirmed ibuprofen 800 mg tablet 800 mg PO Q8H 06/11/22 06/11/22 Previous Rx's Medication Instructions Recorded pulse oximeter #1 ea 09/04/21 umeclidinium 62.5 mcg-vilanterol 1 inh inhalation DAILY 30 days #1 02/18/22 25 mcg/actuation powdr for ea inhalation (Anoro Ellipta) enoxaparin 40 mg/0.4 mL 40 mg (0.4 mL) subcut DAILY 3 days 07/17/22 subcutaneous syringe (Lovenox) #1.2 mL doxycycline monohydrate 100 mg 100 mg PO BID #14 caps 01/21/23 capsule prednisone 20 mg tablet 60 mg (3 x 20 mg) PO DAILY #12 tabs 01/21/23 albuterol sulfate 90 mcg/actuation 2 puff PO Q4-6H PRN shortness of 02/13/23 aerosol inhaler (Ventolin HFA) breath or wheezing #18 ea albuterol sulfate 2.5 mg/0.5 mL 5 mg inhalation Q4H PRN shortness 03/30/23 solution for nebulization of breath or wheezing #30 ea apixaban 5 mg tablet (Eliquis) 5 mg PO BID #60 tabs 05/06/23 cyclobenzaprine 10 mg tablet 10 mg PO TID PRN muscle spasm #20 05/20/23 tabs lidocaine 5 % topical patch 1 patch topical DAILY #30 ea 05/20/23 Allergies Allergy/AdvReac Type Severity Reaction Status Date / Time penicillin V Allergy Intermediate rash Verified 05/20/23 01:22 Review of Systems Review of Systems: Constitutional : No Fever, No Chills ENT/Mouth : No Ear Pain, No Hoarseness, No sore throat Eyes: No Eye Pain, No Swelling, No Redness, No Foreign Body Cardiovascular : No Chest Pain, No SOB Respiratory : No Cough, No Dyspnea Gastrointestinal : No Nausea, No Vomiting, No Diarrhea, No abdominal Pain Genitourinary : No Dysuria, No Hematuria Musculoskeletal : positive neck pain, No Myalgias, No Joint Swelling Skin : No Skin lacerations, No rash Neuro : No Weakness, No Numbness, No Loss of Consciousness, No Dizziness, No Headache Psych : No Anxiety/Panic, No Depression All other systems reviewed and are negative PMFSH Past Medical History Attestation statement: The following information was validated with the patient. Source: old records reviewed Medical History Left shoulder pain Hearing loss DVT (deep venous thrombosis) (~09/03/21) Ankle pain Surgical History History of tonsillectomy History of tubal ligation Family History Family History Father HIV (human immunodeficiency virus infection) Mother HIV (human immunodeficiency virus infection) Sister Aortic heart murmur Brother HIV (human immunodeficiency virus infection) Sister No problems noted. Maternal Aunt Breast cancer Social History Social History Household Members: Children Housing: Apartment Are you a primary daycare teacher to a significant other at home: No Do you presently have visiting nurse or other home services: No Alcohol intake: former Patient Tobacco Use Status: Current everyday Tobacco user Tobacco use type: Cigarette Cigarettes Per Day: 4 e-Cigarette/Vaping Use: Never Used Second Hand Smoke Exposure: No Substance Use Type: Marijuana service: No Current occupational status: unemployed Current occupational exposures/hazards: No Cognitive needs: No Hearing needs: Yes Vision needs: Yes Physical Exam Vital Signs: Vital Signs: Last Vital Signs Temp 97.4 F 05/20/23 01:20 Pulse 60 05/20/23 01:20 Resp 18 05/20/23 01:20 BP 103/64 05/20/23 01:20 Pulse Ox 98 05/20/23 01:20 O2 Del Method Room Air 05/20/23 01:20 BMI result Body Mass Index 17.3 Appearance: Alert. Oriented X3. No acute distress. Eyes: Pupils equal, round and reactive to light. ENT: Pharynx normal. Neck: spasm and ttp along L trapezius there is no hematoma no bruit, distal NV intact in LUE CVS: Normal heart rate and rhythm. Pulses normal. Respiratory: No respiratory distress. Breath sounds normal. Abdomen: Soft and nontender. Skin: Skin warm and dry. Normal skin color. Normal skin turgor. Extremities: No lower extremity edema. No calf ttp Neuro: Oriented X 3. No motor deficit. No sensory deficit. Medications Administered Discontinued Medications Generic Name Dose Route Start Last Admin Trade Name Jose Armando PRN Reason Stop Dose Admin Diazepam 5 mg 05/20/23 01:18 05/20/23 01:41 Diazepam 2 Mg Tablet PO 05/20/23 01:19 5 mg ONCE ONE Administration Lidocaine 1 patch 05/20/23 01:18 05/20/23 01:40 Lidocaine 4 % Patch Adh..Patch TRANSDERMA 05/20/23 01:19 1 patch ONCE ONE Administration Protocol Medical Decision Making Medical Decision Making MDM Narrative: 58 yo female with PMH of COPD, PE no longer on eliquis, back pain here with c/o neck spasm and pain after lifting client on Thursday she has worked with the client still and has exacerbated the pain - she has a spasm on the L trapezius. She has no hematoma or bruit she is NV intact in LUE at this time suspect MSK strain no fracture and no signs of spinal cord impingement or nerve issue. Doubt dissection she is NV intact no headache or neuro symptoms. Differential Diagnosis Differential Diagnoses: The differential diagnosis associated with the presentation includes spasm, strain Admission/Observation Consideration of admission/observation: Escalation of care including admission/ observation considered symptoms improved stable for DC External Record Review External record reviewed: Inpatient record Prescription Management I considered prescription management with: Other Discharge Plan Discharge Clinical Impression: Muscle spasms of neck Patient Disposition: Home, Self-Care Instructions: Muscle Spasm (ED) Additional Instructions: return for numbness, weakness, fevers or any other concerns. Prescriptions: New cyclobenzaprine 10 mg tablet 10 mg PO TID PRN (Reason: muscle spasm) Qty: 20 0RF lidocaine 5 % adhesive patch,medicated 1 patch topical DAILY Qty: 30 0RF Rx Instructions: leave on most painful area for up to 12 hrs No Action enoxaparin [Lovenox] 40 mg/0.4 mL syringe 40 mg subcut DAILY 3 Days Qty: 1.2 0RF albuterol sulfate [Ventolin HFA] 90 mcg/actuation HFA aerosol inhaler 2 puff PO Q4-6H PRN (Reason: shortness of breath or wheezing) Qty: 18 6RF Eliquis 5 mg tablet 5 mg PO BID Qty: 60 3RF prednisone 20 mg tablet 60 mg PO DAILY Qty: 12 0RF doxycycline monohydrate 100 mg capsule 100 mg PO BID Qty: 14 0RF albuterol sulfate 2.5 mg/0.5 mL solution for nebulization 5 mg inhalation Q4H PRN (Reason: shortness of breath or wheezing) Qty: 30 0RF ibuprofen 800 mg tablet 800 mg PO Q8H (DME) pulse oximeter See Rx Instructions .Route .MEDSUPPLY Qty: 1 0RF Rx Instructions: As directed Anoro Ellipta 62.5-25 mcg/actuation blister with device 1 inh inhalation DAILY 30 Days Qty: 1 6RF Stand Alone Forms: Work/School Release
[2023-05-20] MEDS: Lidocaine 4 % Patch ADH..PATCH 1 PATCH TRANSDERMA (01:40)
[2023-05-20] MEDS: diazePAM 2 MG TABLET 5 MG PO (01:41)
== END 2023-05-20 02:52 | disposition home or self-care (01) ==
LOC: HO.ED 02:40
PROVIDERS: Emergency Provider Emergency Medicine; PCP Internal Medicine
DX: Z04.2 Encounter for examination and observation following work accident (principal); M62.838 Other muscle spasm; M54.2 Cervicalgia; Z86.718 Personal history of other venous thrombosis and embolism; F17.210 Nicotine dependence, cigarettes, uncomplicated; Z79.01 Long term (current) use of anticoagulants
CPT/HCPCS: 99283; 99284

== ENCOUNTER 2023-06-18 09:58 | Emergency (ER) | payer OTHER, SELFPAY ==
--- NOTE | ~2023-06-18 | XR_ITS ---
EXAMINATION: XR CHEST CLINICAL INFORMATION: Cough. Weakness. COMPARISON: Chest x-ray March 29, 2023 TECHNIQUE: 2 views of the chest were obtained. FINDINGS: Cardiac silhouette is normal in size. Lungs are hyperinflated. There is no lobar consolidation. No pleural effusion or pneumothorax. Mild degenerative changes of the spine. XR/XR chest 2V IMPRESSION: Emphysematous changes of the lungs without acute pulmonary pathology.
[2023-06-18 10:06] VITALS: BP 134/80; PULSE 82; O2SAT 100; BMI 15.8
[2023-06-18 10:13] VITALS: BP 146/78; PULSE 76; RESP 16; TEMP 36.9; O2SAT 98
--- NOTE | 2023-06-18 10:31 | ED_ITS ---
HPI - General Adult General Chief complaint: Dizziness Stated complaint: WEAKNESS,SOB Time Seen by Provider: 06/18/23 10:29 Source: patient, family (patient's daughter) and EMS Mode of arrival: EMS Limitations: no limitations History of Present Illness HPI narrative: Patient is a 58 year old female with a history of hearing loss, TMJ, DVT, PE, chronic lower back pain, COPD, pulmonary nodules, polyarthralgias, osteoarthritis, spondylosis of lumbar spine, and lower extremity neuropathy presents to the ED with a 2-3 month history of body aches, chills, fevers, SOB, and a cough. Patient reports that she and her son have been sick off and on for the same period of time. She also reports a crushing chest pain which began 2 days ago. No recent travel and no recent antibiotic use MD complaint: Flu-like symptoms Onset (ago): month(s) (2-3) Location: chest Radiation: non-radiation Severity: mild Severity scale (1-10): 3 Quality: crushing Pain Consistency: intermittent Relieving factors: none Exacerbating factors: other (Coughing) Associated symptoms: cough, fever/chills, headaches, shortness of breath and weakness Treatments prior to arrival: NSAID, aspirin and other (APAP) Related Data Home Medications Medication Instructions Recorded Confirmed ibuprofen 800 mg tablet 800 mg PO Q8H 06/11/22 06/11/22 Previous Rx's Medication Instructions Recorded pulse oximeter #1 ea 09/04/21 umeclidinium 62.5 mcg-vilanterol 1 inh inhalation DAILY 30 days #1 02/18/22 25 mcg/actuation powdr for ea inhalation (Anoro Ellipta) enoxaparin 40 mg/0.4 mL 40 mg (0.4 mL) subcut DAILY 3 days 07/17/22 subcutaneous syringe (Lovenox) #1.2 mL doxycycline monohydrate 100 mg 100 mg PO BID #14 caps 01/21/23 capsule prednisone 20 mg tablet 60 mg (3 x 20 mg) PO DAILY #12 tabs 01/21/23 albuterol sulfate 90 mcg/actuation 2 puff PO Q4-6H PRN shortness of 02/13/23 aerosol inhaler (Ventolin HFA) breath or wheezing #18 ea albuterol sulfate 2.5 mg/0.5 mL 5 mg inhalation Q4H PRN shortness 12/11/23 solution for nebulization of breath or wheezing #30 ea apixaban 5 mg tablet (Eliquis) 5 mg PO BID #60 tabs 05/06/23 cyclobenzaprine 10 mg tablet 10 mg PO TID PRN muscle spasm #20 05/20/23 tabs lidocaine 5 % topical patch 1 patch topical DAILY #30 ea 05/20/23 oseltamivir 75 mg capsule (Tamiflu) 75 mg PO DAILY 5 days #5 caps 06/18/23 Allergies Allergy/AdvReac Type Severity Reaction Status Date / Time penicillin V Allergy Intermediate rash Verified 06/18/23 10:06 Review of Systems 2 Constitutional: Constitutional: Reports chills, Reports fever(s), Reports headache(s), Denies night sweats and Reports weakness Eyes: Eyes: Reports no additional eye complaints, Denies blurry vision, Denies change in vision, Denies diplopia, Denies eye discharge, Denies loss of vision and Denies eye pain ENT: Denies dizziness and Reports headache(s) Cardiovascular: Cardiovascular: Reports no additional cardiovascular complaints, Reports chest pain with activity (Coughing), Denies lightheadedness, Denies Loss of Consciousness and Reports dyspnea Respiratory: Respiratory: Reports no additional respiratory complaints, Reports cough (Productive with mucus) and Reports dyspnea Gastrointestinal: Gastrointestinal: Reports no additional gastrointestinal complaints, Denies abdominal pain, Denies melena, Denies hematochezia, Denies change in bowel habits and Denies change in stool character Genitourinary: Genitourinary: Denies hematuria, Denies urinary frequency, Denies dysuria, Denies urinary incontinence, Denies urinary hesitancy and Denies urinary urgency Musculoskeletal: Musculoskeletal: Reports myalgias, Denies numbness and Denies tingling Neurologic: Denies dizziness, Reports headache(s), Denies loss of vision, Denies numbness, Denies tingling and Reports weakness Psychiatric: Psychiatric: Reports no additional psychiatric complaints Endocrine: Endocrine: Reports no additional endocrine complaints Hematologic/Lymphatic: Hematologic/Lymphatic: Reports no additional hematologic/lymphatic complaints Allergic/Immunologic: Allergic/Immunologic: Reports no additional allergic/immunologic complaints PMFSH Past Medical History Attestation statement: The following information was validated with the patient. Source: old records reviewed and nursing notes reviewed Medical History Left shoulder pain Hearing loss DVT (deep venous thrombosis) (~09/03/21) Ankle pain Surgical History History of tonsillectomy History of tubal ligation Family History Family History Father HIV (human immunodeficiency virus infection) Mother HIV (human immunodeficiency virus infection) Sister Aortic heart murmur Brother HIV (human immunodeficiency virus infection) Sister No problems noted. Maternal Aunt Breast cancer Social History Social History Household Members: Children Housing: Apartment Are you a primary caregiver assisted living to a significant other at home: No Do you presently have visiting nurse or other home services: No Alcohol intake: former Patient Tobacco Use Status: Current everyday Tobacco user Tobacco use type: Cigarette Cigarettes Per Day: 4 Smoked in Last 30 Days: Yes e-Cigarette/Vaping Use: Never Used Second Hand Smoke Exposure: No Use of substances other than those prescribed or required for medical reasons: Yes Substance Use Type: Crack/Cocaine and Marijuana Advance Directives: No Advance Directives Information Provided: No Patient : No service: No Current occupational status: unemployed Current occupational exposures/hazards: No Cognitive needs: No Hearing needs: Yes Vision needs: Yes Physical Exam ED Vital Signs: Vital Signs - 24 hr 06/18/23 10:13 Temperature 98.5 F Pulse Rate 76 Respiratory Rate 16 Blood Pressure 146/78 H Pulse Oximetry 98 Oxygen Delivery Method Room Air BMI result Body Mass Index 15.8 Const General: cooperative, alert, awake and ill appearing Nutritional Appearance: well nourished Orientation/consciousness: patient oriented x3 Limitations: no limitations HENMT Head: Yes normal to inspection Ears: hearing grossly normal bilaterally General nose exam: Normal external nose present Face and sinus: Yes normal facial exam Mouth: Normal oral and palatal mucosa present and moist mucous membranes Throat: Yes posterior oropharynx normal Eyes General: appearance normal, both eyes and all related structures Periorbital: periorbital findings normal Eyelids: Yes eyelids normal Conjunctivae: conjunctivae normal Pupils: Equal, round and reactive pupils present EOM: EOMs intact bilaterally Neck Neck: Yes normal visual inspection Lymphatic: no lymphadenopathy noted Chest Chest palpation & inspection: normal inspection of the chest Resp Effort & Inspection: normal respiratory effort, able to speak in complete sentences and Actively coughing Auscultation: clear to auscultation bilaterally Cardio Jugular venous distension: no JVD Palpation: normal PMI Rate: regular rate Rhythm: regular rhythm GI Inspection: Yes normal to inspection Neuro General: patient oriented x3 Cranial nerves: Yes Equal, round and reactive pupils present Cognition (Neuro): normal cognition Motor exam (neuro): 5/5 motor strength present throughout Sensory Exam: Normal double simultaneous stimulation for sensation Coordination: [id number] test normal Extrem General: Yes normal to inspection, Yes full ROM and Yes capillary refill normal Psych Appearance: grossly normal Mental Status: mental status grossly normal Affect: normal affect Attitude: cooperative Thought process: Normal thought process present Thought content: Normal thought content present Insight: Good insight present (Psych) Medical Decision Making Medical Decision Making MDM Narrative: Patient is a 58 year old assigned female at with a history of COPD presenting to the emergency department today with a cough and feeling generally unwell. Patient's physical exam was unremarkable. Patient's blood work was unremarkable. Patient's EKG was unremarkable. Patient's chest x-ray showed no acute process. Patient's COVID-19 and RSV tests were negative. Patient was influenza positive. I explained my physical exam findings as well as all test results to the patient and the patient's daughter. I answered all questions asked by the patient and the patient's daughter. I stressed the importance of the patient taking her medication as prescribed. I stressed the importance of the patient following up with her primary care provider. I stressed the importance of the patient returning to the emergency department immediately if her symptoms were to worsen or if she were to develop any dizziness, shortness of breath, difficulty breathing, chest pain, blurry vision, loss of vision, nausea, vomiting, abdominal pain, fever, chills, back pain, or any other complaints. Patient verbalized agreement and understanding with this treatment plan and discharge. Differential Diagnosis Differential Diagnoses: The differential diagnosis associated with the presentation includes COVID-19 Influenza RSV Pneumonia Admission/Observation Consideration of admission/observation: Escalation of care including admission/observation considered Patient would have been admitted to the hospital had her work up had any findings where hospital admission was appropriate and her clinical presentation warranted hospital admission. Lab Data [facility] Lab Attestation statement: I reviewed the patient's lab results. My interpretation of these results are in the MDM Rationale portion of this note. 06/18/23 11:07 06/18/23 11:07 Labs: Lab Results 06/18/23 Range/Units 11:07 WBC 4.5 L (4.8-10.8) X10*3/uL RBC 4.63 (4.20-5.50) X10*6/uL Hgb 14.2 (12.0-16.0) g/dl Hct 42.0 (37.0-47.0) % MCV 90.7 (80.0-98.0) fL MCH 30.7 (27.0-33.0) pg MCHC 33.8 (31.0-35.0) g/dl RDW 13.7 (11.0-16.0) % Plt Count 176 D (160-400) X10*3/uL MPV 8.6 L (9.4-12.3) fL Immature Gran % (Auto) 0.0 (0.0-0.4) % Neut % (Auto) 69.3 (45-73) % Lymph % (Auto) 18.9 L (20-40) % [place] % (Auto) 11.4 H (2-11) % Eos % (Auto) 0.2 (0-4) % Baso % (Auto) 0.2 (0-2) % Lymph # (Auto) 0.9 L (1.2-4.9) X10*3/uL [place] # (Auto) 0.5 (0.1-1.2) X10*3/uL Eos # (Auto) 0.0 (0.0-0.4) X10*3/uL Baso # (Auto) 0.0 (0.0-0.2) X10*3/uL Abs Immat Gran (auto) 0.00 (0.00-0.03) X10*3/uL Absolute Neuts (auto) 3.1 (2.0-8.3) x10*3/uL Absolute Nucleated RBC 0.000 (0.0-0.012) X10*3/uL Nucleated RBC % (auto) 0.0 (0.0-0.2) /100WBC Sodium 140 (135-145) mmol/L Potassium 3.7 (3.3-5.1) mmol/L Chloride 104 (96-108) mmol/L Carbon Dioxide 25 (22-29) mmol/L Anion Gap 15 (12-20) BUN 12 (9-16) mg/dL Creatinine 0.77 (0.5-1.4) mg/dL Estim Creat Clear Calc 49.1 Estimated GFR > 60 Random Glucose 99 (60-115) mg/dL Calcium 9.0 D (8.4-10.2) mg/dL Total Bilirubin 0.2 (0.0-1.0) mg/dL AST 31 (5-31) U/L ALT 13 (0-31) U/L Alkaline Phosphatase 76 (39-117) U/L Troponin I High Sens < 2.7 (<3.5-17.0) ng/L Total Protein 7.2 (6.5-8.0) g/dL Albumin 4.0 (3.5-5.0) g/dL Influenza Type A (PCR) POSITIVE A (Negative) Influenza Type B (PCR) NEGATIVE (Negative) RSV RNA Qual (PCR) NEGATIVE (Negative) SARS-CoV-2 RNA (RT-PCR) NEGATIVE (Negative) Independent Interpretation I performed an independent interpretation of an: EKG and Plain X-Ray Interpretation: My interpretation is in agreement with the radiologist's impression of this imaging study. - EXAMINATION: XR CHEST CLINICAL INFORMATION: Cough. Weakness. COMPARISON: Chest x-ray March 29, 2023 TECHNIQUE: 2 views of the chest were obtained. FINDINGS: Cardiac silhouette is normal in size. Lungs are hyperinflated. There is no lobar consolidation. No pleural effusion or pneumothorax. Mild degenerative changes of the spine. XR/XR chest 2V IMPRESSION: Emphysematous changes of the lungs without acute pulmonary pathology. Dictated By: Rock Go MD Signed By: Electronically signed by Rock Go MD 06/18/23 1124 - Vent. Rate: 072 BPM Atrial Rate: 072 BPM P-R Int: 136 ms QRS Dur: 086 ms QT Int: 412 ms P-R-T Axes: 083 064 073 degrees QTc Int: 451 ms Normal sinus rhythm Normal ECG When compared with ECG of 30-MAR-2023 12:09, Nonspecific T wave abnormality, improved in Lateral leads Electronically Signed By:JOHNNIE FLORES Dictated By: Johnnie Flores MD Signed By: Electronically signed by Johnnie Flores MD 06/18/23 1402 Radiology Impression Discussion of test interpretation with radiology: I have reviewed the radiologist's reading. Independent Historian Clinical information obtained from an independent historian. History obtained from or confirmed by: EMS (EMS provided additional history and confirmed the history provided by the patient.) and Other (patient's daughter provided additional history and confirmed the history provided by the patient.) Prescription Management I considered prescription management with: Antiviral (patient prescribed tamiflu) Discharge Plan Discharge Clinical Impression: Influenza Patient Disposition: Home, Self-Care Instructions: Influenza (DC) Additional Instructions: Follow up with your primary care provider. Return to the emergency department immediately if your symptoms worsen or if you develop any dizziness, shortness of breath, difficulty breathing, chest pain, blurry vision, loss of vision, nausea, vomiting, abdominal pain, fever, chills, back pain, or any other complaints. Prescriptions: New oseltamivir [Tamiflu] 75 mg capsule 75 mg PO DAILY 5 Days Qty: 5 0RF No Action enoxaparin [Lovenox] 40 mg/0.4 mL syringe 40 mg subcut DAILY 3 Days Qty: 1.2 0RF albuterol sulfate [Ventolin HFA] 90 mcg/actuation HFA aerosol inhaler 2 puff PO Q4-6H PRN (Reason: shortness of breath or wheezing) Qty: 18 6RF Eliquis 5 mg tablet 5 mg PO BID Qty: 60 3RF prednisone 20 mg tablet 60 mg PO DAILY Qty: 12 0RF doxycycline monohydrate 100 mg capsule 100 mg PO BID Qty: 14 0RF cyclobenzaprine 10 mg tablet 10 mg PO TID PRN (Reason: muscle spasm) Qty: 20 0RF lidocaine 5 % adhesive patch,medicated 1 patch topical DAILY Qty: 30 0RF Rx Instructions: leave on most painful area for up to 12 hrs albuterol sulfate 2.5 mg/0.5 mL solution for nebulization 5 mg inhalation Q4H PRN (Reason: shortness of breath or wheezing) Qty: 30 0RF ibuprofen 800 mg tablet 800 mg PO Q8H (DME) pulse oximeter See Rx Instructions .Route .MEDSUPPLY Qty: 1 0RF Rx Instructions: As directed Anoro Ellipta 62.5-25 mcg/actuation blister with device 1 inh inhalation DAILY 30 Days Qty: 1 6RF Referrals: [facility] [place] Family Medicine [Provider Group] (Call to establish and follow up with a primary care provider. If you already have a primary care provider, please follow up with them.) [facility] [Provider Group] (Call to establish and follow up with a primary care provider. If you already have a primary care provider, please follow up with them.) [facility] [place] Primary Care,[facility] [Provider Group] (Call to establish and follow up with a primary care provider. If you already have a primary care provider, please follow up with them.) Stand Alone Forms: Work/School Release Interventions: ED Discharge Assessment Last Done: 06/18/23 12:43 Discharge Date/Time: 06/18/23 12:44 Print Language: Turkmen
--- NOTE | 2023-06-18 10:31 | ECG_ITS ---
Test Reason : dizziness Blood Pressure : / mmHG Vent. Rate : 072 BPM Atrial Rate : 072 BPM P-R Int : 136 ms QRS Dur : 086 ms QT Int : 412 ms P-R-T Axes : 083 064 073 degrees QTc Int : 451 ms Normal sinus rhythm Normal ECG When compared with ECG of 30-MAR-2023 12:09, Nonspecific T wave abnormality, improved in Lateral leads Referred By: Adriana Santana Electronically Signed By:OCTAVIANO DOLL
--- NOTE | 2023-06-18 11:00 | PC.NURSE ---
a&ox4. vss and up to date. pt presents to the ED w/ flu like sx and dizziness/weakness. pt also verbalizing sob. pt sitting upright to promote patent airway. pt able to speak in full/clear sentences w/o difficulty. no sob/wob noted. respirations even and unlabored. pt waiting to be seen by ED provider. plan of care ongoing. daughter bedside. call cueto placed within reach.
--- NOTE | 2023-06-18 11:10 | PC.NURSE ---
pt returned from xray at this time. 20gIV placed in the right AC - labs obtained/sent to lab. plan of care ongoing at this time. respirations remain even and unlabored. call cueto placed within reach.
[2023-06-18 11:12] LABS: MANUAL DIFF FLAG NO
[2023-06-18 11:21] LABS: Basophils Percent Auto 0.2 % (0-2); Eosinophils Percent Auto 0.2 % (0-4); Hemoglobin 14.2 g/dl (12.0-16.0); Lymphocytes Absolute Auto 0.9 X10*3/uL (1.2-4.9); Lymphocytes Percent Auto 18.9 % (20-40); Mean Corpuscular HGB Conc 33.8 g/dl (31.0-35.0); Mean Corpuscular Hemoglobin 30.7 pg (27.0-33.0); Mean Corpuscular Volume 90.7 fL (80.0-98.0); Mean Platelet Volume 8.6 fL (9.4-12.3); Monocytes Absolute Auto 0.5 X10*3/uL (0.1-1.2); Monocytes Percent Auto 11.4 % (2-11); Neutrophils Absolute Auto 3.1 x10*3/uL (2.0-8.3); Neutrophils Percent Auto 69.3 % (45-73); Platelet Count 176 X10*3/uL (160-400); Red Blood Count 4.63 X10*6/uL (4.20-5.50); Red Cell Distribution Width 13.7 % (11.0-16.0); White Blood Count 4.5 X10*3/uL (4.8-10.8)
[2023-06-18 11:34] LABS: Alanine Aminotransferase 13 U/L (0-31); Alkaline Phosphatase 76 U/L (39-117); Anion Gap 15 (12-20); Aspartate Amino Transferase 31 U/L (5-31); Bilirubin Total 0.2 mg/dL (0.0-1.0); Blood Urea Nitrogen 12 mg/dL (9-16); Carbon Dioxide 25 mmol/L (22-29); Chloride 104 mmol/L (96-108); Creatinine Clr Calc Pharmacy 49.1; Estimated Glomerular Filt Rate > 60; Glucose Random 99 mg/dL (60-115); Potassium 3.7 mmol/L (3.3-5.1); Sodium 140 mmol/L (135-145); Total Protein 7.2 g/dL (6.5-8.0)
[2023-06-18 11:41] LABS: Troponin-I High Sensitivity < 2.7 ng/L (<3.5-17.0)
[2023-06-18 12:00] LABS: Influenza A PCR POSITIVE (Negative); Influenza B PCR NEGATIVE (Negative); Resp Syncy Virus RNA Qual PCR NEGATIVE (Negative); SARS COV2 PCR INHOUSE NEGATIVE (Negative)
== END 2023-06-18 12:44 | disposition home or self-care (01) ==
PROVIDERS: Physician Assistant Medical; Emergency Provider Emergency Medicine
DX: J11.1 Influenza due to unidentified influenza virus with other respiratory manifestations (principal); J44.9 Chronic obstructive pulmonary disease, unspecified; Z86.711 Personal history of pulmonary embolism; Z86.718 Personal history of other venous thrombosis and embolism; Z11.52 Encounter for screening for COVID-19; Z20.828 Contact with and (suspected) exposure to other viral communicable diseases; Z88.0 Allergy status to penicillin
CPT/HCPCS: 0241U; 71046; 80053; 84484; 85025; 93005; 99283; 99285

== ENCOUNTER → 2023-06-18 10:31 | Outpatient (BNV) | payer OTHER, SELFPAY | PROVIDERS: Emergency Provider Emergency Medicine; Visit Provider Internal Medicine | DX: R42 Dizziness and giddiness (principal) | CPT/HCPCS: 93010 ==

== ENCOUNTER 2023-07-29 15:39 | Outpatient (AMB) | payer OTHER, SELFPAY ==
--- NOTE | 2023-07-29 15:40 | A.OFFPC_ITS ---
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 Required: No Accompanied by: Self / Same As Patient Allergies penicillin V Allergy (Intermediate, Verified 07/29/23 16:09) rash Medication List - Last Reconciled 07/29/23 by Shiloh Sahu MD albuterol sulfate 5 mg inhalation Q4H PRN albuterol sulfate 90 mcg/actuation (Ventolin HFA) 2 puffs PO Q4-6H PRN apixaban (Eliquis) 5 mg PO BID ibuprofen 800 mg PO Q8H lidocaine 5% 1 patch topical DAILY [pulse oximeter As directed] umeclidinium-vilanterol 62.5-25 mcg/actuation (Anoro Ellipta) 1 inh inhalation DAILY 30 days Tobacco use date assessed: 07/29/23 Dental Screening Dental Screen Date: 07/29/23 Did you have a dental visit in the last 12 months?: Yes Did you have a dental problem in the last 6 months where you did not have access to dental care?: No Was dental information given to patient?: Patient has dentist HPI HPI Comments History of Present Illness Details This is a 58-year-old female with COPD and pulmonary embolus that comes today due to increase in shortness of breath. She said this started after some housing situations that are happening in which there is mold and is unsanitary. On long-acting inhaler for her COPD and I will change a neuro to Symbicort. She is follow by pulmonology. On chronic anticoagulation for history of pulmonary embolism. [facility], [facility] Medical History Left shoulder pain Hearing loss DVT (deep venous thrombosis) (~09/03/21) Ankle pain Surgical History History of tonsillectomy History of tubal ligation Family History Father HIV (human immunodeficiency virus infection) Mother HIV (human immunodeficiency virus infection) Sister Aortic heart murmur Brother HIV (human immunodeficiency virus infection) Sister No problems noted. Maternal Aunt Breast cancer Social History Household Members: Children Housing: Apartment Are you a primary home care provider to a significant other at home: No Do you presently have visiting nurse or other home services: No Alcohol intake: former Patient Tobacco Use Status: Former Tobacco user Tobacco use type: Cigarette Cigarettes Per Day: 4 e-Cigarette/Vaping Use: Never Used Second Hand Smoke Exposure: No Substance Use Type: Crack/Cocaine and Marijuana service: No Current occupational status: unemployed Current occupational exposures/hazards: No Cognitive needs: No Hearing needs: Yes Vision needs: Yes Questionnaire PHQ-9 Over the last 2 weeks, how often have you been bothered by any of the following problems? 1. Little interest or pleasure in doing things: not at all 2. Feeling down, depressed, or hopeless: several days 3. Trouble falling or staying asleep, or sleeping too much: several days 4. Feeling tired or having little energy: nearly every day 5. Poor appetite or overeating: nearly every day 6. Feeling bad about yourself - or that you are a failure or have let yourself or your family down: several days 7. Trouble concentrating on things, such as reading the newspaper or watching television: not at all 8. Moving or speaking so slowly that other people could have noticed. Or the opposite - being so fidgety or restless that you have been moving around a lot more than usual: not at all 9. Thoughts that you would be better off or of hurting yourself in some way: not at all Total score: 9 Depression Screening Interpretation: Positive Depression Screening Follow-up: Existing condition Depression Screening Done: Yes 82039 - PHQ-9 Billing: Yes Source: Developed by Drs. Allen Martinez, Jamilah Rolle, Sanjay Shannon and colleagues, with an educational min from [employer]. Thrive Questionnaire Date Thrive assessed: 07/29/23 I am a: Patient What is your living situation today?: I have a steady place to live Within the past 12 months, did the food you bought not last and you didn't have the money to get more?: Never true Within the past 12 months, did you worry whether your food would run out before you got money to buy more?: Never true Do you have trouble paying for medicines?: No Do you have trouble getting transportation to medical appointments?: No Do you have trouble paying your heating and electricity bill?: No Do you have trouble taking care of your child, family member or friend?: No Do you have trouble with day-to-day activities such as bathing, preparing meals, shopping, managing finances, etc.?: No Are you currently unemployed and looking for a job?: No Are you interested in more education?: No Please select the resources that you would like help with: None Currently or been in a relationship where the following occur: no concerns reported THRIVE Score: 0 AUDIT C Alcohol Use Questionnaire (AUDIT-C) 1. How often do you have a drink containing alcohol?: Never Total Score: 0 LUIZ-7 AMB Questionnaire LUIZ-7 Date LUIZ - 7 assessed: 07/29/23 Feeling nervous, anxious, or on edge: 1 = Several days Not being able to stop or control worryin = Several days Worrying too much about different things: 1 = Several days Trouble relaxin = Not at all Being so restless that it is hard to sit still: 0 = Not at all Becoming easily annoyed or irritable: 1 = Several days Feeling afraid as if something awful might happen: 1 = Several days Total LUIZ-7 score (0-4 normal; 5-9 mild; 10-14 moderate; 15-21 severe): 5 Source: Developed by Drs. Allen Martinez, Jamilah Rolle, Sanjay Shannon and colleagues, with an educational min from [employer]. LUIZ-7 Assessment Billing LUIZ-7 Assessment Tool: LUIZ-7 Assessment 45681 Review of Systems Const All systems reviewed & are unremarkable except as noted in HPI and below Eyes Reports no additional complaints, Denies change in vision and Denies other visual disturbances Card Denies chest pain at rest, Denies chest pain with activity, Denies edema, Denies irregular heart rhythm, Denies claudication, Denies dyspnea, Denies dyspnea on exertion, Denies orthopnea, Denies paroxysmal nocturnal dyspnea and Denies slow heart rate Resp Denies cough, Denies dyspnea and Denies dyspnea on exertion Physical exam (Primary Care) Vital Signs: Last Vital Signs BP 148/82 H 07/29/23 15:43 BMI result Body Mass Index 16.5 Tobacco/Smoking Status: Tobacco use Status Tobacco use date assessed 07/29/23 07/29/23 15:50 Patient Tobacco Use Status Former Tobacco user 07/29/23 16:00 Tobacco use type Cigarette 07/29/23 15:50 e-Cigarette/Vaping Use Never Used 07/29/23 15:50 PHQ-9: PHQ-9 Score PHQ-9: Total score 9 07/29/23 16:12 Depression Screening Interpretation: Positive Depression Screening Follow-up: Existing condition Thrive Assessment: Date of Thrive Assessment Date Thrive assessed 07/29/23 07/29/23 15:50 Currently or been in a relationship where the following occur: no concerns reported Resp Effort & Inspection: normal respiratory effort Auscultation: clear to auscultation bilaterally Cardio Jugular venous distension: no JVD Rate: regular rate Rhythm: regular rhythm Heart sounds: S1 normal heart sound present and S2 normal heart sound present Extrem General: Yes full ROM Assessment and Plan Assessment & Plan (1) COPD (chronic obstructive pulmonary disease): Code(s): J44.9 - Chronic obstructive pulmonary disease, unspecified Plan: Start Symbicort. Discontinue Anoro. Use rescue inhaler as needed. Follow-up with pulmonology. (2) Pulmonary embolism: Code(s): I26.99 - Other pulmonary embolism without acute cor pulmonale Plan: Continue Eliquis. Orders: Orders XR chest 2V Today J44.9 - Chronic obstructive pulmonary disease, unspecified Comprehensive [place]. Panel Fast Today M25.50 - Pain in unspecified joint Complete Blood Count Auto Diff Today I82.409 - Acute embolism and thrombosis of unspecified deep veins of unspecified lower extremity Medications: New budesonide-formoterol 80-4.5 mcg/actuation (Symbicort) 1 inh inhalation BID 10.2 grams 6RF 30 days J44.9 - Chronic obstructive pulmonary disease, unspecified Coding Level of Care Code Est Pt Level 3 (38562) Diagnoses COPD (chronic obstructive pulmonary disease) J44.9 Pulmonary embolism I26.99 Additional Codes LUIZ-7 Assessment Billing - ULIZ-7 Assessment Tool: LUIZ-7 Assessment 81783 ([id number]) Time Spent (min) 19
[2023-07-29 15:43] VITALS: BP 148/82; BMI 16.5
== END 2023-07-29 16:23 | disposition home or self-care (01) ==
PROVIDERS: Visit Provider Internal Medicine
DX: J44.9 Chronic obstructive pulmonary disease, unspecified (principal); I26.99 Other pulmonary embolism without acute cor pulmonale
CPT/HCPCS: 99213

== ENCOUNTER 2023-08-11 10:25 | Emergency (ER) | payer OTHER, SELFPAY ==
--- NOTE | ~2023-08-11 | XR_ITS ---
EXAMINATION: XR CHEST CLINICAL INFORMATION: Posterior rib pain. COMPARISON: Most recent chest radiograph dated 06/18/2023. TECHNIQUE: Frontal view of the chest was obtained. FINDINGS: No airspace consolidation. No pleural effusion or pneumothorax. Mild hyperexpansion of the lungs, unchanged. Stable cardiomediastinal silhouette. XR/XR chest 1V IMPRESSION: No acute cardiopulmonary findings.
--- NOTE | ~2023-08-11 | XR_ITS ---
EXAMINATION: XR PELVIS CLINICAL INFORMATION: Pelvic/hip pain. COMPARISON: None available. TECHNIQUE: AP view of the pelvis. FINDINGS: No displaced fracture. No dislocation. Small bilateral hip acetabular marginal osteophytes. No concerning lytic or blastic osseous lesion. No evidence of avascular necrosis. Bilateral facet arthropathy at L5-S1. Phleboliths within the pelvis. XR/XR pelvis 1-2V IMPRESSION: 1. Mild bilateral hip osteoarthritis. 2. Bilateral facet arthropathy at L5-S1.
--- NOTE | ~2023-08-11 | XR_ITS ---
EXAMINATION: XR THORACIC SPINE CLINICAL INFORMATION: Posterior rib pain. COMPARISON: Most recent chest radiograph dated 06/18/2023 and CTA chest dated 01/21/2022. TECHNIQUE: AP, lateral, and swimmer's views of the thoracic spine. FINDINGS: Normal vertebral body alignment. The thoracic kyphosis is maintained. Mild chronic loss of vertebral body height at T11, similar when compared to the prior CT and likely representing a chronic compression deformity with adjacent degenerative disc disease. No acute fracture or subluxation. No loss of intervertebral disc height. Small multilevel endplate osteophytes. No concerning lytic or blastic osseous lesion. The visualized lungs are clear. XR/XR thoracic spine 2V IMPRESSION: 1. Mild chronic compression deformity at T11 with adjacent degenerative disc disease, similar when compared to the prior CT. 2. No acute fracture or subluxation.
[2023-08-11 10:36] VITALS: BP 130/70; BP 140/92; PULSE 57; PULSE 69; RESP 20; TEMP 36.4; O2SAT 97; O2SAT 99; BMI 16.7
--- NOTE | 2023-08-11 11:05 | ED_ITS ---
HPI - Back Pain/Injury General Chief Complaint: Back Pain/Injury Stated Complaint: R SCIATICA PAIN/WHOLE BODY ACHE X3 DAYS PER EMS Time Seen by Provider: 08/11/23 10:32 Source: patient Mode of arrival: EMS Limitations: physical limitation History of Present Illness HPI Narrative: 50-year-old female medical history polyarthralgias including chronic back pain, COPD, and DVT/PE on Eliquis presents to the emergency department with complaints of right posterior rib pain radiating into her buttock for the past several days. She denies any recent falls, trauma, overuse injury, fevers, chills, history of IV drug use, red flag symptoms, urinary hesitancy, urinary fecal incontinence, paresthesias or weakness. She does report difficulty with ambulation secondary to pain. She reports she attempted to go to work yesterday, however; left early due to increased pain. Pertinent positives and negatives discussed in HPI MD elicited complaint: back pain Related Data Home Medications ?Medication ?Instructions ?Recorded ?Confirmed ibuprofen 800 mg tablet 800 mg PO Q8H 06/11/22 07/29/23 Previous Rx's ?Medication ?Instructions ?Recorded pulse oximeter #1 ea 09/04/21 umeclidinium 62.5 mcg-vilanterol 1 inh inhalation DAILY 30 days #1 02/18/22 25 mcg/actuation powdr for ea inhalation (Anoro Ellipta) albuterol sulfate 90 mcg/actuation 2 puff PO Q4-6H PRN shortness of 02/13/23 aerosol inhaler (Ventolin HFA) breath or wheezing #18 ea albuterol sulfate 2.5 mg/0.5 mL 5 mg inhalation Q4H PRN shortness 03/30/23 solution for nebulization of breath or wheezing #30 ea apixaban 5 mg tablet (Eliquis) 5 mg PO BID #60 tabs 05/06/23 lidocaine 5 % topical patch 1 patch topical DAILY #30 ea 05/20/23 budesonide-formoterol HFA 80 1 inh inhalation BID 30 days #10.2 07/29/23 mcg-4.5 mcg/actuation aerosol grams inhaler (Symbicort) Allergies Allergy/AdvReac Type Severity Reaction Status Date / Time penicillin V Allergy Intermediate rash Verified 08/11/23 10:38 Review of Systems Review of Systems: Yes all other systems are reviewed and are negative PMFSH Past Medical History Medical History Left shoulder pain Hearing loss DVT (deep venous thrombosis) (~09/03/21) Ankle pain Surgical History History of tonsillectomy History of tubal ligation Family History Family History Father HIV (human immunodeficiency virus infection) Mother HIV (human immunodeficiency virus infection) Sister Aortic heart murmur Brother HIV (human immunodeficiency virus infection) Sister No problems noted. Maternal Aunt Breast cancer Social History Social History Household Members: Children Housing: Apartment Are you a primary intensive care anaesthetist to a significant other at home: No Do you presently have visiting nurse or other home services: No Alcohol intake: former Patient Tobacco Use Status: Former Tobacco user Tobacco use type: Cigarette Cigarettes Per Day: 4 e-Cigarette/Vaping Use: Never Used Second Hand Smoke Exposure: No Substance Use Type: Crack/Cocaine and Marijuana Advance Directives: No Advance Directives Information Provided: Yes Do you have a plan to hurt others: No Plan service: No Current occupational status: unemployed Current occupational exposures/hazards: No Cognitive needs: No Hearing needs: Yes Vision needs: Yes Physical Exam Vital Signs: Vital Signs: Last Vital Signs Temp 97.6 F 08/11/23 10:36 Pulse 57 08/11/23 10:36 Resp 20 08/11/23 10:36 BP 130/70 08/11/23 10:36 Pulse Ox 99 08/11/23 10:36 O2 Del Method Room Air 08/11/23 10:36 BMI result Body Mass Index 16.7 Nursing notes and vital signs reviewed. GENERAL APPEARANCE: A&0 x 4, generally well appearing, no acute distress HENMT: Normal to inspection, atraumatic, face symmetrical. Normal external ears, nose, and oropharynx clear. EYE: PERRLA, EOM intact, structures appear normal NECK: Supple without lymphadenopathy. No stiffness or restricted ROM. CHEST: Normal to inspection HEART: Normal rate and regular rhythm, normal S1/S2, no M/R/G LUNGS: LS CTA, moving air well. Able to speak in complete sentences. No crackles, wheezes, or rhonchi auscultated ABDOMEN: Soft, nontender, nondistended. Normal bowel sounds noted BACK: No obvious deformity. Tenderness posterior right lower ribs radiating into lower right back. EXTREMITIES: Moving all extremities without difficulty. No cyanosis, clubbing, or edema. Normal capillary refill. NEUROLOGICAL: Alert and oriented, moving all 4 extremities with equal strength. CN not formally tested but appearing grossly intact. Observed to ambulate with normal gait. Cognition normal SKIN: Warm and dry without any lesions, rash, or visible sores PSYCH: Cooperative, normal affect, normal thought process Course Course Course Narrative: Plan: xr thoracic spine and pelvis due to complaints of pain. Medications Administered Discontinued Medications Generic Name Dose Route Start Last Admin Trade Name Freq PRN Reason Stop Dose Admin Diazepam 2 mg 08/11/23 11:57 08/11/23 12:05 Diazepam 2 Mg Tablet PO 08/11/23 11:58 2 mg ONCE ONE Administration Medical Decision Making Medical Decision Making [facility] Narrative: Old records reviewed for previous imaging, lab studies, ECGs, and notes. Patient was assessed the emergency department with no acute distress or toxicity noted. Urinalysis showing no evidence of acute urinary tract infection. Per my interpretation, no acute findings noted on chest, thoracic spine, and pelvic x- ray. Radiologist for miramontes on a chronic compression deformity at T11 similar to prior CT scan, bilateral hip osteoarthritis and facet arthropathy at L5-S1. 2 mg p.o. Valium given here in the emergency department with good relief of back pain. Patient noted to be ambulating with steady gait. Patient educated to follow-up with her primary care provider for further evaluation back pain. Patient states she has a prescription for muscle relaxers at home and no new prescriptions were provided here in the emergency department. Patient is safe for discharge at this time with plan for [id number] Tylenol for fever/discomfort with dosing as per packaging. HPI, PE, diagnostics, and plan discussed with patient and family with no unanswered questions at this time. Strict return precautions given to return to the emergency department with new, worsening, or concerning emergent symptoms. Recommended to follow-up with there primary care provider in 24-48 hours for further treatment and management. Differential Diagnosis Differential Diagnoses: The differential diagnosis associated with the presentation includes But not limited to stenosis, radiculopathy, fracture, dislocation, sprain, strain, cauda equina, epidural abscess, sepsis, malignancy Lab Data MDM Lab Attestation statement: I reviewed the patient's lab results. Labs: Lab Results 08/11/23 Range/Units 12:20 Urine Color Yellow Urine Appearance Clear Urine pH 6.0 (5.0-9.0) Ur Specific [place] 1.010 (1.005-1.025) Urine Protein Negative (Neg-Trace) mg/dL Urine Glucose (UA) Negative (Negative) mg/dL Urine Ketones Negative (Negative) mg/dL Urine Blood Negative (Negative) Urine Nitrite Negative (Negative) Ur Leukocyte Esterase Negative (Negative) Urine RBC 0-2 (0-2) /HPF Urine WBC 0-5 (0-5) /HPF Ur Squamous Epith Cells 6-10 (0-2) /HPF Urine Bacteria 1+ (None Seen) Hyaline Casts 0-2 (0-2) /LPF Independent Interpretation I performed an independent interpretation of an: Plain X-Ray Interpretation: Thoracic spine, pelvis, and chest x-ray showing no evidence of acute findings. Independent Historian Clinical information obtained from an independent historian. History obtained from or confirmed by: Other (Daughter) Discharge Plan Discharge Clinical Impression: Back pain Patient Disposition: Home, Self-Care Instructions: Back Pain (ED), Heat Pack Application (ED) Prescriptions: No Action albuterol sulfate [Ventolin HFA] 90 mcg/actuation HFA aerosol inhaler 2 puff PO Q4-6H PRN (Reason: shortness of breath or wheezing) Qty: 18 6RF Eliquis 5 mg tablet 5 mg PO BID Qty: 60 3RF lidocaine 5 % adhesive patch,medicated 1 patch topical DAILY Qty: 30 0RF Rx Instructions: leave on most painful area for up to 12 hrs albuterol sulfate 2.5 mg/0.5 mL solution for nebulization 5 mg inhalation Q4H PRN (Reason: shortness of breath or wheezing) Qty: 30 0RF ibuprofen 800 mg tablet 800 mg PO Q8H (DME) pulse oximeter See Rx Instructions .Route .MEDSUPPLY Qty: 1 0RF Rx Instructions: As directed budesonide-formoterol [Symbicort] 80-4.5 mcg/actuation HFA aerosol inhaler 1 inh inhalation BID 30 Days Qty: 10.2 6RF Anoro Ellipta 62.5-25 mcg/actuation blister with device 1 inh inhalation DAILY 30 Days Qty: 1 6RF Ref[place]: [facility] [place]] [facility]] [facility] Group] Stand Alone Forms: Work/School Release Print Language: Belarusian
[2023-08-11] MEDS: diazePAM 2 MG TABLET PO (12:05)
[2023-08-11 12:31] LABS: Appearance Urine Clear; Color Urine Yellow; Glucose Urine UA Negative (Negative); Leukocyte Esterase Urine Negative (Negative); Nitrite Urine Negative (Negative); Urine Blood Negative (Negative); Urine Ketones Negative (Negative); Urine Protein Negative (Neg-Trace)
[2023-08-11 12:33] LABS: Bacteria Urine 1+ (None Seen); Hyaline Casts Urine 0-2 /LPF (0-2); RBC Urine 0-2 /HPF (0-2); WBC Urine 0-5 /HPF (0-5)
[2023-08-11 13:29] VITALS: BP 127/72; PULSE 61; RESP 18; TEMP 36.4; O2SAT 99
== END 2023-08-11 13:46 | disposition home or self-care (01) ==
PROVIDERS: Nurse Practitioner Family; Emergency Provider Emergency Medicine
DX: M54.50 Low back pain, unspecified (principal); R07.81 Pleurodynia; Z86.718 Personal history of other venous thrombosis and embolism; Z79.01 Long term (current) use of anticoagulants; Z79.899 Other long term (current) drug therapy
CPT/HCPCS: 71045; 72070; 72170; 81001; 99282; 99283

== ENCOUNTER 2023-08-12 12:48 | Emergency (ER) | payer OTHER, SELFPAY ==
--- NOTE | ~2023-08-12 | XR_ITS ---
EXAMINATION: XR CHEST CLINICAL INFORMATION: Pain to right side of the chest COMPARISON: Chest radiograph 08/11/2023 TECHNIQUE: Frontal view of the chest was obtained. FINDINGS: The lungs are well expanded. No focal consolidation. No pleural effusion, edema or pneumothorax. The cardiomediastinal silhouette is within normal limits. Aortic arch calcifications. No acute osseous abnormality. XR/XR chest 1V IMPRESSION: No acute pulmonary disease.
--- NOTE | ~2023-08-12 | CT_ITS ---
EXAMINATION: CT ABDOMEN AND PELVIS WITHOUT CONTRAST CLINICAL INFORMATION: Abdominal pain COMPARISON: CT abdomen pelvis 08/02/2020 TECHNIQUE: Multidetector volumetric imaging was performed from the superior aspect of the liver through the pubic symphysis. Sagittal and coronal reformatted images were obtained on the technologist's workstation. This CT examination was performed using dose optimization techniques as appropriate, variously including the following: *Automated exposure control *Adjustment of mA and/or kV according to patient size (this includes techniques or standardized protocols for targeted exams where dose is matched to indication/reason for exam; i.e. extremities or head) *Use of iterative reconstruction technique DLP: 363 mGy-cm FINDINGS: LUNG BASES: The visualized lung bases are unremarkable. LIVER, GALLBLADDER, AND BILIARY TREE: The liver is normal in size, shape, and attenuation. No focal hepatic lesion or biliary ductal dilatation is present. The gallbladder is unremarkable with no evidence of radiopaque gallstones, gallbladder wall thickening, or obvious pericholecystic inflammatory changes. PANCREAS: Unremarkable. SPLEEN: Unremarkable. ADRENAL GLANDS: Unremarkable. KIDNEYS AND URETERS: The kidneys are normal in size, shape, and attenuation. No hydronephrosis, hydroureter, or calculi seen. No perinephric stranding. BLADDER: Unremarkable. GASTROINTESTINAL TRACT: Extensive diverticular changes are present in the rectosigmoid without evidence of diverticulitis. Scattered colonic diverticula are present elsewhere. The small and large bowel are otherwise unremarkable. The appendix is unremarkable. ABDOMINAL WALL: No significant hernia is appreciated. LYMPH NODES: No retroperitoneal lymphadenopathy. VASCULAR: Calcific atherosclerotic changes are present in the aorta and iliofemoral vessels. There is no evidence of an abdominal aortic aneurysm. PELVIC VISCERA: The uterus and adnexa are unremarkable. OSSEOUS STRUCTURES: Unremarkable. CT/CT abdomen pelvis wo IV con IMPRESSION: 1. A cause for the patient's abdominal pain has not been found. 2. Incidental note made of colonic diverticulosis without diverticulitis and other findings described above. Fleischner guidelines were followed.
[2023-08-12 12:56] VITALS: BP 128/76; PULSE 70; O2SAT 99
[2023-08-12 12:57] VITALS: BP 140/84; PULSE 74; RESP 20; TEMP 36.4; O2SAT 99; BMI 17.4
--- NOTE | 2023-08-12 13:03 | ED.GENADULT ---
HPI - General Adult General Chief complaint: General Medical Stated complaint: ABD PAIN,BACK PAIN X5 DAYS,SEEN FOR SAME PER EMS Time Seen by Provider: 08/12/23 20:20 Related Data Home Medications ?Medication ?Instructions ?Recorded ?Confirmed ibuprofen 800 mg tablet 800 mg PO Q8H 06/11/22 08/26/23 Previous Rx's ?Medication ?Instructions ?Recorded pulse oximeter #1 ea 09/04/21 umeclidinium 62.5 mcg-vilanterol 1 inh inhalation DAILY 30 days #1 02/18/22 25 mcg/actuation powdr for ea inhalation (Anoro Ellipta) albuterol sulfate 2.5 mg/0.5 mL 5 mg inhalation Q4H PRN shortness 03/30/23 solution for nebulization of breath or wheezing #30 ea apixaban 5 mg tablet (Eliquis) 5 mg PO BID #60 tabs 05/06/23 lidocaine 5 % topical patch 1 patch topical DAILY #30 ea 05/20/23 albuterol sulfate 90 mcg/actuation 2 puff PO Q4-6H PRN shortness of 08/26/23 aerosol inhaler (Ventolin HFA) breath or wheezing #18 ea budesonide-formoterol HFA 80 1 inh inhalation BID 30 days #10.2 08/26/23 mcg-4.5 mcg/actuation aerosol grams inhaler (Symbicort) fluticasone fur. 200 mcg-umeclid 1 inh inhalation DAILY #1 inhaler 09/25/23 62.5 mcg-vilant 25 mcg inhalat.powder (Trelegy Ellipta) prednisone 10 mg tablet 10 mg PO DIRECTED #50 tabs 09/25/23 Allergies Allergy/AdvReac Type Severity Reaction Status Date / Time penicillin V Allergy Intermediate rash Verified 09/25/23 13:16 [facility] Past Medical History Medical History Left shoulder pain Hearing loss DVT (deep venous thrombosis) (~09/03/21) Ankle pain Surgical History History of tonsillectomy History of tubal ligation Family History Family History Father HIV (human immunodeficiency virus infection) Mother HIV (human immunodeficiency virus infection) Sister Aortic heart murmur Brother HIV (human immunodeficiency virus infection) Sister No problems noted. Maternal Aunt Breast cancer Social History Social History Household Members: Children Housing: Apartment Are you a primary technical healthcare consultant to a significant other at home: No Do you presently have visiting nurse or other home services: No Alcohol intake: former Patient Tobacco Use Status: Former Tobacco user Tobacco use type: Cigarette Cigarettes Per Day: 4 e-Cigarette/Vaping Use: Never Used Second Hand Smoke Exposure: No Substance Use Type: Crack/Cocaine and Marijuana service: No Current occupational status: unemployed Current occupational exposures/hazards: No Cognitive needs: No Hearing needs: Yes Vision needs: Yes Physical Exam ED Vital Signs: Vital Signs - 24 hr 08/12/23 12:57 Temperature 97.5 F Pulse Rate 74 Respiratory Rate 20 Blood Pressure 140/84 H Pulse Oximetry 99 Oxygen Delivery Method Room Air BMI result Body Mass Index 17.4 Course Course Course Narrative: This is an RME: Additional HPI, ROS, PE not included below will be deferred to primary provider. 58 year old female presents with miltiple complaints, abd pain, nausea, dizziness, R leg pain, rib pain, fatigue X few days. Seen here a few days ago not improving. Presents via ambulance to the waiting room Medical Decision Making Lab Data 08/12/23 13:43 08/12/23 13:43 Labs: Lab Results 08/12/23 08/12/23 Range/Units 13:43 16:45 WBC 8.6 (4.8-10.8) X10*3/uL RBC 4.88 (4.20-5.50) X10*6/uL Hgb 14.7 (12.0-16.0) g/dl Hct 44.9 (37.0-47.0) % MCV 92.0 (80.0-98.0) fL MCH 30.1 (27.0-33.0) pg MCHC 32.7 (31.0-35.0) g/dl RDW 15.6 (11.0-16.0) % Plt Count 312 D (160-400) X10*3/uL MPV 7.9 L (9.4-12.3) fL Immature Gran % (Auto) 0.4 (0.0-0.4) % Neut % (Auto) 60.4 (45-73) % Lymph % (Auto) 28.4 (20-40) % Hitchcock % (Auto) 8.6 (2-11) % Eos % (Auto) 1.8 (0-4) % Baso % (Auto) 0.4 (0-2) % Lymph # (Auto) 2.4 (1.2-4.9) X10*3/uL Hitchcock # (Auto) 0.7 (0.1-1.2) X10*3/uL Eos # (Auto) 0.2 (0.0-0.4) X10*3/uL Baso # (Auto) 0.0 (0.0-0.2) X10*3/uL Abs Immat Gran (auto) 0.03 (0.00-0.03) X10*3/uL Absolute Neuts (auto) 5.2 (2.0-8.3) x10*3/uL Absolute Nucleated RBC 0.000 (0.0-0.012) X10*3/uL Nucleated RBC % (auto) 0.0 (0.0-0.2) /100WBC PT 11.7 (11.1-13.3) SEC INR 1.0 (0.9-1.1) Sodium 141 (135-145) mmol/L Potassium 4.2 (3.3-5.1) mmol/L Chloride 106 (96-108) mmol/L Carbon Dioxide 26 (22-29) mmol/L Anion Gap 13 (12-20) BUN 11 (9-16) mg/dL Creatinine 0.76 (0.5-1.4) mg/dL Estim Creat Clear Calc 54.8 Estimated GFR > 60 Random Glucose 100 (60-115) mg/dL Calcium 10.2 D (8.4-10.2) mg/dL Magnesium 1.9 (1.6-2.6) mg/dL Total Bilirubin 0.4 (0.0-1.0) mg/dL AST 18 (5-31) U/L ALT 9 (0-31) U/L Alkaline Phosphatase 87 (39-117) U/L Total Protein 7.7 (6.5-8.0) g/dL Albumin 4.3 (3.5-5.0) g/dL Lipase 15 (8-78) U/L Urine Color Yellow Urine Appearance Clear Urine pH 7.0 (5.0-9.0) Ur Specific [place] 1.010 (1.005-1.025) Urine Protein Negative (Neg-Trace) mg/dL Urine Glucose (UA) Negative (Negative) mg/dL Urine Ketones Negative (Negative) mg/dL Urine Blood Negative (Negative) Urine Nitrite Negative (Negative) Ur Leukocyte Esterase Negative (Negative) Urine Test NEGATIVE (NEGATIVE) Discharge Plan Discharge Clinical Impression: Eloped from emergency department Patient Disposition: Left W/O Completing Treatment Prescriptions: No Action Eliquis 5 mg tablet 5 mg PO BID Qty: 60 3RF lidocaine 5 % adhesive patch,medicated 1 patch topical DAILY Qty: 30 0RF Rx Instructions: leave on most painful area for up to 12 hrs albuterol sulfate 2.5 mg/0.5 mL solution for nebulization 5 mg inhalation Q4H PRN (Reason: shortness of breath or wheezing) Qty: 30 0RF ibuprofen 800 mg tablet 800 mg PO Q8H (DME) pulse oximeter See Rx Instructions .Route .MEDSUPPLY Qty: 1 0RF Rx Instructions: As directed albuterol sulfate [Ventolin HFA] 90 mcg/actuation HFA aerosol inhaler 2 puff PO Q4-6H PRN (Reason: shortness of breath or wheezing) Qty: 18 6RF budesonide-formoterol [Symbicort] 80-4.5 mcg/actuation HFA aerosol inhaler 1 inh inhalation BID 30 Days Qty: 10.2 6RF Anoro Ellipta 62.5-25 mcg/actuation blister with device 1 inh inhalation DAILY 30 Days Qty: 1 6RF Trelegy Ellipta 200-62.5-25 mcg blister with device 1 inh inhalation DAILY Qty: 1 6RF prednisone 10 mg tablet 10 mg PO DIRECTED Qty: 50 0RF Rx Instructions: take 4 tabs daily for 5 days, then go down by 1 tab every 5 days. Discharge Date/Time: 08/12/23 20:20
[2023-08-12 13:51] LABS: MANUAL DIFF FLAG NO
[2023-08-12 13:53] LABS: Basophils Percent Auto 0.4 % (0-2); Eosinophils Absolute Auto 0.2 X10*3/uL (0.0-0.4); Eosinophils Percent Auto 1.8 % (0-4); Hematocrit 44.9 % (37.0-47.0); Hemoglobin 14.7 g/dl (12.0-16.0); Imm Gran Abs Auto 0.03 X10*3/uL (0.00-0.03); Imm Gran Pct Auto 0.4 % (0.0-0.4); Lymphocytes Absolute Auto 2.4 X10*3/uL (1.2-4.9); Lymphocytes Percent Auto 28.4 % (20-40); Mean Corpuscular HGB Conc 32.7 g/dl (31.0-35.0); Mean Corpuscular Hemoglobin 30.1 pg (27.0-33.0); Mean Platelet Volume 7.9 fL (9.4-12.3); Monocytes Absolute Auto 0.7 X10*3/uL (0.1-1.2); Monocytes Percent Auto 8.6 % (2-11); Neutrophils Absolute Auto 5.2 x10*3/uL (2.0-8.3); Neutrophils Percent Auto 60.4 % (45-73); Platelet Count 312 X10*3/uL (160-400); Red Blood Count 4.88 X10*6/uL (4.20-5.50); Red Cell Distribution Width 15.6 % (11.0-16.0); White Blood Count 8.6 X10*3/uL (4.8-10.8)
[2023-08-12 14:06] LABS: Prothrombin Time 11.7 SEC (11.1-13.3)
[2023-08-12 14:08] LABS: Alanine Aminotransferase 9 U/L (0-31); Albumin Level 4.3 g/dL (3.5-5.0); Alkaline Phosphatase 87 U/L (39-117); Anion Gap 13 (12-20); Aspartate Amino Transferase 18 U/L (5-31); Bilirubin Total 0.4 mg/dL (0.0-1.0); Blood Urea Nitrogen 11 mg/dL (9-16); Calcium 10.2 mg/dL (8.4-10.2); Carbon Dioxide 26 mmol/L (22-29); Chloride 106 mmol/L (96-108); Creatinine Clr Calc Pharmacy 54.8; Estimated Glomerular Filt Rate > 60; Glucose Random 100 mg/dL (60-115); Lipase 15 U/L (8-78); Magnesium 1.9 mg/dL (1.6-2.6); Potassium 4.2 mmol/L (3.3-5.1); Sodium 141 mmol/L (135-145); Total Protein 7.7 g/dL (6.5-8.0)
[2023-08-12 17:04] LABS: Appearance Urine Clear; Color Urine Yellow; Glucose Urine UA Negative (Negative); Leukocyte Esterase Urine Negative (Negative); Nitrite Urine Negative (Negative); Urine Blood Negative (Negative); Urine Ketones Negative (Negative); Urine Protein Negative (Neg-Trace)
[2023-08-12 17:06] LABS: UPreg QC Valid YES; Urine Pregnancy NEGATIVE (NEGATIVE)
== END 2023-08-12 20:20 | disposition left against medical advice (07) ==
PROVIDERS: Physician Assistant; Emergency Provider Emergency Medicine
DX: R10.9 Unspecified abdominal pain (principal); M54.9 Dorsalgia, unspecified
CPT/HCPCS: 36415; 71045; 74176; 80053; 81003; 81025; 83690; 83735; 85025; 85610; 99282; 99284

== ENCOUNTER 2023-08-26 14:16 | Outpatient (AMB) | payer OTHER, SELFPAY ==
--- NOTE | 2023-08-26 14:34 | MHC.PC.OV ---
Vital Signs 08/26/23 15:10 Height 5 ft 2 in Weight 92 lb 6 oz BMI 16.9 BP 112/72 Blood Pressure Location Lt brachial Position Sitting Intake Visit Reasons: PE Intake Note: Patient here for a physical exam Medical Administrative Required: No Accompanied by: Self / Same As Patient Allergies penicillin V Allergy (Intermediate, Verified 08/26/23 15:28) rash Medication List - Last Reconciled 08/26/23 by Shiloh Sahu MD albuterol sulfate 5 mg inhalation Q4H PRN albuterol sulfate 90 mcg/actuation (Ventolin HFA) 2 puffs PO Q4-6H PRN apixaban (Eliquis) 5 mg PO BID budesonide-formoterol 80-4.5 mcg/actuation (Symbicort) 1 inh inhalation BID 30 days ibuprofen 800 mg PO Q8H lidocaine 5% 1 patch topical DAILY [pulse oximeter As directed] umeclidinium-vilanterol 62.5-25 mcg/actuation (Anoro Ellipta) 1 inh inhalation DAILY 30 days Tobacco use date assessed: 07/29/23 Dental Screening Dental Screen Date: 07/29/23 HPI HPI Comments History of Present Illness Details This is a 58-year-old female with COPD and history of pulmonary embolism chronic anticoagulation that comes for physical exam. Last mammogram was June 2022 and has an appointment for this month. [facility] Medical History (Updated 08/26/23 @ 15:44 by Shiloh Sahu MD) Left shoulder pain Hearing loss DVT (deep venous thrombosis) (~09/03/21) Ankle pain Surgical History History of tonsillectomy History of tubal ligation Family History Father HIV (human immunodeficiency virus infection) Mother HIV (human immunodeficiency virus infection) Sister Aortic heart murmur Brother HIV (human immunodeficiency virus infection) Sister No problems noted. Maternal Aunt Breast cancer Social History Household Members: Children Housing: Apartment Are you a primary ambulatory care coordinator to a significant other at home: No Do you presently have visiting nurse or other home services: No Alcohol intake: former Patient Tobacco Use Status: Former Tobacco user Tobacco use type: Cigarette Cigarettes Per Day: 4 e-Cigarette/Vaping Use: Never Used Second Hand Smoke Exposure: No Substance Use Type: Crack/Cocaine and Marijuana service: No Current occupational status: unemployed Current occupational exposures/hazards: No Cognitive needs: No Hearing needs: Yes Vision needs: Yes Questionnaire Thrive Questionnaire Date Thrive assessed: 07/29/23 LUIZ-7 AMB Questionnaire LUIZ-7 Date LUIZ - 7 assessed: 07/29/23 Source: Developed by Drs. Allen Martinez, Jamilah Rolle, Sanjay Shannon and colleagues, with an educational min from [employer]. Review of Systems Const All systems reviewed & are unremarkable except as noted in HPI and below Eyes Reports no additional complaints, Denies change in vision and Denies other visual disturbances Card Denies chest pain at rest, Denies chest pain with activity, Denies edema, Denies irregular heart rhythm, Denies claudication, Denies dyspnea, Denies dyspnea on exertion, Denies orthopnea, Denies paroxysmal nocturnal dyspnea and Denies slow heart rate Resp Denies cough, Denies dyspnea and Denies dyspnea on exertion GI Denies abdominal pain, Denies change in bowel habits, Denies excessive flatus, Denies nausea and Denies vomiting Denies urinary incontinence, Denies urinary hesitancy and Denies urinary urgency Physical exam (Primary Care) Vital Signs: Last Vital Signs BP 112/72 08/26/23 15:10 BMI result Body Mass Index 16.9 Tobacco/Smoking Status: Tobacco use Status Tobacco use date assessed 07/29/23 08/26/23 14:34 Patient Tobacco Use Status Former Tobacco user 08/26/23 14:34 Tobacco use type Cigarette 08/26/23 14:34 e-Cigarette/Vaping Use Never Used 08/26/23 14:34 Thrive Assessment: Date of Thrive Assessment Date Thrive assessed 07/29/23 08/26/23 14:34 Const Orientation/consciousness: patient oriented x3 HENMT Head: Yes normal to inspection, Yes normocephalic and Yes atraumatic Ears: external ears normal Eyes General: appearance normal, both eyes and all related structures Eyelids: Yes eyelids normal Conjunctivae: conjunctivae normal Neck Neck: Yes normal visual inspection and Yes supple Resp Effort & Inspection: normal respiratory effort Auscultation: clear to auscultation bilaterally Cardio Jugular venous distension: no JVD Rate: regular rate Rhythm: regular rhythm Heart sounds: S1 normal heart sound present and S2 normal heart sound present GI Inspection: Yes normal to inspection Palpation (GI): Soft to palpation and nontender Auscultation: normal bowel sounds Skin General skin exam: no rashes or lesions noted Neuro General: patient oriented x3 and no focal motor deficits Extrem General: Yes full ROM Psych Appearance: grossly normal Assessment and Plan Assessment & Plan (1) Physical exam: Code(s): Z00.00 - Encounter for general adult medical examination without abnormal findings Plan: Repeat in a year. (2) COPD (chronic obstructive pulmonary disease): Code(s): J44.9 - Chronic obstructive pulmonary disease, unspecified Plan: Continue Symbicort. Follow-up with pulmonology. (3) Pulmonary embolism: Code(s): I26.99 - Other pulmonary embolism without acute cor pulmonale Plan: Continue Eliquis. Orders: Orders Lipid Panel Today E78.5 - Hyperlipidemia, unspecified XR lumbar spine 2-3V Today M54.50 - Low back pain, unspecified XR hip RT min 2V Today M25.551 - Pain in right hip [place] upper GI series Today R10.13 - Epigastric pain Medications: Refilled budesonide-formoterol 80-4.5 mcg/actuation (Symbicort) 1 inh inhalation BID 30 days 10.2 grams 6RF J44.9 - Chronic obstructive pulmonary disease, unspecified albuterol sulfate 90 mcg/actuation (Ventolin HFA) 2 puffs PO Q4-6H PRN 18 ea 6RF shortness of breath or wheezing J44.9 - Chronic obstructive pulmonary disease, unspecified Coding Level of Care Code Est Pt Prev Care 40-64y(31014) Diagnoses Physical exam Z00.00 COPD (chronic obstructive pulmonary disease) J44.9 Pulmonary embolism I26.99 Time Spent (min) 30
[2023-08-26 15:10] VITALS: BP 112/72; BMI 16.9
== END 2023-08-26 15:46 | disposition home or self-care (01) ==
PROVIDERS: Visit Provider Internal Medicine
DX: Z00.00 Encounter for general adult medical examination without abnormal findings (principal); J44.9 Chronic obstructive pulmonary disease, unspecified; I26.99 Other pulmonary embolism without acute cor pulmonale
CPT/HCPCS: 99396

== ENCOUNTER 2023-08-27 10:36 | Outpatient (REF) | payer OTHER, SELFPAY ==
[2023-08-27 12:15] LABS: Alanine Aminotransferase 13 U/L (0-31); Albumin Level 4.4 g/dL (3.5-5.0); Alkaline Phosphatase 80 U/L (39-117); Anion Gap 15 (12-20); Aspartate Amino Transferase 21 U/L (5-31); Bilirubin Total 0.4 mg/dL (0.0-1.0); Blood Urea Nitrogen 11 mg/dL (9-16); Carbon Dioxide 25 mmol/L (22-29); Chloride 104 mmol/L (96-108); Cholesterol 224 mg/dL (<200); Estimated Glomerular Filt Rate > 60; Glucose Fasting 121 mg/dL (60-99); HDL Cholesterol 96 mg/dL (>40); LDL Cholesterol Calculated 113 mg/dL (<100); Potassium 4.3 mmol/L (3.3-5.1); Sodium 140 mmol/L (135-145); Total Protein 7.6 g/dL (6.5-8.0); Triglycerides 75 mg/dL (<150)
== END 2023-08-27 10:37 | disposition home or self-care (01) ==
LOC: HO.MAMMO 10:36
PROVIDERS: PCP Internal Medicine; Visit Provider Internal Medicine
DX: M25.50 Pain in unspecified joint (principal); E78.5 Hyperlipidemia, unspecified; Z12.39 Encounter for other screening for malignant neoplasm of breast
CPT/HCPCS: 36415; 77063; 77067; 80053; 80061

== ENCOUNTER → 2023-08-27 12:15 | Outpatient (BNV) | payer OTHER, SELFPAY | PROVIDERS: PCP Internal Medicine; Visit Provider Radiology Diagnostic Radiology | DX: Z12.31 Encounter for screening mammogram for malignant neoplasm of breast (principal) | CPT/HCPCS: 77063; 77067 ==

== ENCOUNTER 2023-09-25 13:02 | Outpatient (AMB) | payer OTHER, SELFPAY ==
[2023-09-25 13:09] VITALS: BP 102/74; PULSE 64; O2SAT 100; BMI 16.2
--- NOTE | 2023-09-25 13:09 | MHC.OFFVIS ---
Vital Signs 09/25/23 13:09 Height 5 ft 3 in Weight 91 lb 7.869 oz BMI 16.2 BP 102/74 Blood Pressure Location Rt brachial Position Sitting Pulse 64 Pulse Source Doppler Pulse Oximetry (%) 100 Oxygen Delivery Method Room Air Intake Visit Reasons: COPD Allergies penicillin V Allergy (Intermediate, Verified 09/25/23 13:16) rash HPI HPI COPD: Details: 58-year-old lady, active 40+ pack-year smoker, previously followed for pulmonary emphysema with good symptom control on Anoro. Patient recently had significant mold in the house secondary to water leaks in her pulmonary symptoms. Been well controlled. She was seen by her primary care provider and started on Symbicort. Patient presents complaining of wheezing and dyspnea. [facility] Medical History Left shoulder pain Hearing loss DVT (deep venous thrombosis) (~09/03/21) Ankle pain Surgical History History of tonsillectomy History of tubal ligation Family History Father HIV (human immunodeficiency virus infection) Mother HIV (human immunodeficiency virus infection) Sister Aortic heart murmur Brother HIV (human immunodeficiency virus infection) Sister No problems noted. Maternal Aunt Breast cancer Social History Household Members: Children Housing: Apartment Are you a primary healthcare administrative assistant to a significant other at home: No Do you presently have visiting nurse or other home services: No Alcohol intake: former Patient Tobacco Use Status: Former Tobacco user Tobacco use type: Cigarette Cigarettes Per Day: 4 e-Cigarette/Vaping Use: Never Used Second Hand Smoke Exposure: No Substance Use Type: Crack/Cocaine and Marijuana service: No Current occupational status: unemployed Current occupational exposures/hazards: No Cognitive needs: No Hearing needs: Yes Vision needs: Yes Review of Systems Const Denies daytime sleepiness, Denies excessive sweating, Denies fatigue, Denies fever(s), Denies lethargy, Denies malaise, Denies night sweats, Denies snoring and Denies weight loss Eyes Denies blurry vision and Denies itchy eyes ENT Denies nasal congestion, Denies post nasal drip, Denies sinus pain, Denies sinus pressure and Denies other ( Thrush) Card Denies chest pain, Denies pedal edema, Denies dyspnea, Denies orthopnea and Denies paroxysmal nocturnal dyspnea Resp Denies cough, Denies hemoptysis, Denies excessive phlegm production, Denies dyspnea, Denies snoring and Denies wheezing GI Denies abdominal pain and Denies heartburn Musc Denies myalgias, Denies arthralgias and Denies joint swelling Skin/Breast Denies rash Neuro Denies memory loss and Denies seizure-like activity Psych Denies abnormal sleep pattern, Denies anxiety and Denies memory loss Endo Denies excessive sweating, Denies fatigue and Denies heat intolerance Mikael/Lymph Denies easy bruising Aller/Immun Denies itchy eyes, Denies seasonal rhinorrhea and Denies wheezing Physical Exam Vital Signs: Last Vital Signs Pulse 64 09/25/23 13:09 BP 102/74 09/25/23 13:09 Pulse Ox 100 09/25/23 13:09 Oxygen Delivery Method Room Air 09/25/23 13:09 BMI result Body Mass Index 16.2 Const General: no acute distress and alert Nutritional Appearance: not obese Orientation/consciousness: Other orientation findings ( oriented) HEENT Head: Yes atraumatic Eyes General: appearance normal, both eyes and all related structures Sclerae: sclerae normal EOM: EOMs intact bilaterally Neck Neck: Yes supple Lymphatic: no lymphadenopathy noted Resp Effort & Inspection: normal respiratory effort and no use of accessory muscles Auscultation: clear to auscultation bilaterally Cardio Rate: regular rate Rhythm: regular rhythm Heart sounds: no gallops, no murmurs and no rubs Skin General skin exam: other ( warm) Extrem General: No clubbing, No cyanosis and No edema Assessment & Plan Assessment & Plan (1) COPD (chronic obstructive pulmonary disease): Code(s): J44.9 - Chronic obstructive pulmonary disease, unspecified Category: Medical Plan: Suboptimally controlled. Will switch inhaled therapy to Trelegy. Continue albuterol MDI. Will treat with a course of prednisone. Will obtain full PFT. (2) Pulmonary nodules: Code(s): R91.8 - Other nonspecific abnormal finding of lung field Category: Medical Plan: will obtain CT chest for further evaluation. (3) Environmental allergies: Code(s): Z91.09 - Other allergy status, other than to drugs and biological substances Category: Medical Plan: Will obtain IgE level, CBC with differential, and RAST panel for further evaluation. Orders: Orders Resp Allergy Profile Region I Today Z91.09 - Other allergy status, other than to drugs and biological substances CT chest wo IV con Today R91.8 - Other nonspecific abnormal finding of lung field Complete Blood Count Auto Diff Today Z91.09 - Other allergy status, other than to drugs and biological substances PFT pulmonary function test Today J44.9 - Chronic obstructive pulmonary disease, unspecified Medications: New turglztrhcb-cqxtjsxtz-hckqcivo 200-62.5-25 mcg (Trelegy Ellipta) 1 inh inhalation DAILY 1 inhaler 6RF R91.8 - Other nonspecific abnormal finding of lung field prednisone take 4 tabs daily for 5 days, then go down by 1 tab every 5 days. 10 mg PO DIRECTED 50 tabs 0RF R91.8 - Other nonspecific abnormal finding of lung field Coding Level of Care Code Est Pt Level 4 (96859) Diagnoses COPD (chronic obstructive pulmonary disease) J44.9 Pulmonary nodules R91.8 Environmental allergies Z91.09
== END 2023-09-25 13:33 | disposition home or self-care (01) ==
PROVIDERS: PCP Internal Medicine; Visit Provider Internal Medicine Pulmonary Disease
DX: J44.9 Chronic obstructive pulmonary disease, unspecified (principal); R91.8 Other nonspecific abnormal finding of lung field; Z91.09 Other allergy status, other than to drugs and biological substances
CPT/HCPCS: 99214

== ENCOUNTER 2023-09-25 13:02 | Outpatient (REF) | payer OTHER, SELFPAY ==
[2023-09-28 23:43] LABS: Class Alternaria alternata 0; Class Aspergillus fumigatus 0; Class Bermuda Grass 0; Class Birch 0; Class Cat Dander 0; Class Cladosporium herbarum 0; Class Cockroach 0; Class Common Ragweed 0; Class Cottonwood 0; Class Derm. pterony 0; Class Dermatophagoides farinae 0; Class Dog Dander 0; Class Elm 0; Class Maple Box Elder 0; Class Mountain Cedar 0; Class Mouse Urine Protein 0; Class Mugwort 0; Class Oak 0; Class Penicillium crysogenum 0; Class Rough Pigweed 0; Class Sheep Sorrel 0; Class Sycamore 0; Class Timothy Grass 0; Class Walnut Tree 0; Class White Ash 0; Class White Mulberry 0; D001 IgE D pteronyssinus <0.10 kU/L; D002 - IgE D farinae <0.10 kU/L; E001 - IgE Cat Dander <0.10 kU/L; E005 - IgE Dog Dander <0.10 kU/L; E072-IgE Mouse Urine <0.10 kU/L; G002 IgE Bermuda Grass <0.10 kU/L; G006 - IgE Timothy Grass <0.10 kU/L; I006-IgE Cockroach, German <0.10 kU/L; Immunoglobulin E 14 kU/L (<OR=114); M001 IgE Penicillium chrysogen <0.10 kU/L; M002 - IgE Cladosporium herbar <0.10 kU/L; M003 - IgE Aspergillus fumigat <0.10 kU/L; M006 - IgE Alternaria alternat <0.10 kU/L; T001 IgE Maple/Box Elder <0.10 kU/L; T003 IgE Common Silver Birch <0.10 kU/L; T006 - IgE Cedar, Mountain <0.10 kU/L; T007 - IgE Oak, White <0.10 kU/L; T008 IgE Elm, American <0.10 kU/L; T010 - IgE Walnut <0.10 kU/L; T011 - IgE Maple Leaf Sycamore <0.10 kU/L; T014 - IgE Cottonwood <0.10 kU/L; T015 - IgE Ash, White <0.10 kU/L; T070 - IgE White Mulberry <0.10 kU/L; W001 - IgE Ragweed, Short <0.10 kU/L; W006 - IgE Mugwort <0.10 kU/L; W014 IgE Pigweed, Common <0.10 kU/L; W018 IgE Sheep Sorrel <0.10 kU/L
== END 2023-09-25 13:03 | disposition home or self-care (01) ==
LOC: HO.LAB 13:02
PROVIDERS: PCP Internal Medicine; Visit Provider Internal Medicine Pulmonary Disease
DX: J44.9 Chronic obstructive pulmonary disease, unspecified (principal); R91.8 Other nonspecific abnormal finding of lung field; F17.210 Nicotine dependence, cigarettes, uncomplicated; Z91.09 Other allergy status, other than to drugs and biological substances
CPT/HCPCS: 36415; 82785; 86003; 99212

== ENCOUNTER 2023-10-09 15:11 | Outpatient (REF) | payer OTHER, SELFPAY ==
--- NOTE | ~2023-10-09 | CT_ITS ---
EXAMINATION: CT CHEST WITHOUT CONTRAST CLINICAL INFORMATION: Nonspecific finding on chest x-ray. COMPARISON: 01/21/2022 TECHNIQUE: Multidetector volumetric CT imaging of the chest was done. Axial MIP volume rendering provided. Sagittal and coronal reformatted images were obtained. This CT examination was performed using dose optimization techniques as appropriate, variously including the following: *Automated exposure control *Adjustment of mA and/or kV according to patient size (this includes techniques or standardized protocols for targeted exams where dose is matched to indication/reason for exam; i.e. extremities or head) *Use of iterative reconstruction technique DLP: 62 mGy-cm FINDINGS: LUNGS: Mild paraseptal emphysema. No new or enlarging pulmonary nodule. Central airways are patent. PLEURA: No pleural effusion. MEDIASTINUM: No cardiomegaly. Aorta and pulmonary artery are normal in caliber. No mediastinal adenopathy. Lack of IV contrast limits evaluation for hilar adenopathy. Otherwise, lungs are clear. CORONARY ARTERY CALCIFICATION: No coronary artery calcification appreciated. CHEST WALL/AXILLA: No axillary or internal mammary lymphadenopathy. UPPER ABDOMEN: Unremarkable. OSSEOUS STRUCTURES: Degenerative changes of the thoracolumbar spine. CT/CT chest wo IV con IMPRESSION: Mild paraseptal emphysema. No new or enlarging pulmonary nodule.
== END 2023-10-09 15:12 | disposition home or self-care (01) ==
LOC: HO.CT 15:11
PROVIDERS: PCP Internal Medicine; Visit Provider Internal Medicine Pulmonary Disease
DX: R91.8 Other nonspecific abnormal finding of lung field (principal)
CPT/HCPCS: 71250

== ENCOUNTER 2023-11-12 15:44 | Outpatient (AMB) | payer OTHER, SELFPAY ==
--- NOTE | 2023-11-12 15:44 | A.OFFVIS_ITS ---
Vital Signs 11/12/23 15:45 Height 5 ft 3 in Weight 91 lb 7.869 oz BMI 16.2 BP 117/67 Blood Pressure Location Rt brachial Position Sitting Pulse 82 Pulse Source Doppler Pulse Oximetry (%) 95 Oxygen Delivery Method Room Air Intake Visit Reasons: COPD Allergies penicillin V Allergy (Intermediate, Verified 09/25/23 13:16) rash HPI HPI COPD: Details: 58-year-old lady, active 40+ pack-year smoker, previously followed for pulmonary emphysema with good symptom control on Anoro. After the last office visit she only been using prednisone and has stopped using her Trelegy, so her symptoms have been suboptimally controlled. She did complete her immunologic workup showing no significant immunologic component. Her CT chest read is pending, but does show significant air trapping. Her pulmonary function test is pending. FORMERLY [facility], LATER [facility] Medical History Left shoulder pain Hearing loss DVT (deep venous thrombosis) (~09/03/21) Ankle pain Surgical History History of tonsillectomy History of tubal ligation Family History Father HIV (human immunodeficiency virus infection) Mother HIV (human immunodeficiency virus infection) Sister Aortic heart murmur Brother HIV (human immunodeficiency virus infection) Sister No problems noted. Maternal Aunt Breast cancer Social History Household Members: Children Housing: Apartment Are you a primary rn homecare to a significant other at home: No Do you presently have visiting nurse or other home services: No Alcohol intake: former Patient Tobacco Use Status: Former Tobacco user Tobacco use type: Cigarette Cigarettes Per Day: 4 e-Cigarette/Vaping Use: Never Used Second Hand Smoke Exposure: No Substance Use Type: Crack/Cocaine and Marijuana service: No Current occupational status: unemployed Current occupational exposures/hazards: No Cognitive needs: No Hearing needs: Yes Vision needs: Yes Review of Systems Const Denies daytime sleepiness, Denies excessive sweating, Denies fatigue, Denies fever(s), Denies lethargy, Denies malaise, Denies night sweats, Denies snoring and Denies weight loss Eyes Denies blurry vision and Denies itchy eyes ENT Denies nasal congestion, Denies post nasal drip, Denies sinus pain, Denies sinus pressure and Denies other ( Thrush) Card Denies chest pain, Denies pedal edema, Denies dyspnea, Reports dyspnea on exertion, Denies orthopnea and Denies paroxysmal nocturnal dyspnea Resp Denies cough, Denies hemoptysis, Denies excessive phlegm production, Denies dyspnea, Reports dyspnea on exertion, Denies snoring and Denies wheezing GI Denies abdominal pain and Denies heartburn Musc Denies myalgias, Denies arthralgias and Denies joint swelling Skin/Breast Denies rash Neuro Denies memory loss and Denies seizure-like activity Psych Denies abnormal sleep pattern, Denies anxiety and Denies memory loss Endo Denies excessive sweating, Denies fatigue and Denies heat intolerance Mikael/Lymph Denies easy bruising Aller/Immun Denies itchy eyes, Denies seasonal rhinorrhea and Denies wheezing Physical Exam Vital Signs: Last Vital Signs Pulse 82 11/12/23 15:45 BP 117/67 11/12/23 15:45 Pulse Ox 95 11/12/23 15:45 Oxygen Delivery Method Room Air 11/12/23 15:45 BMI result Body Mass Index 16.2 Const General: no acute distress and alert Nutritional Appearance: not obese Orientation/consciousness: Other orientation findings ( oriented) HEENT Head: Yes atraumatic Eyes General: appearance normal, both eyes and all related structures Sclerae: sclerae normal EOM: EOMs intact bilaterally Neck Neck: Yes supple Lymphatic: no lymphadenopathy noted Resp Effort & Inspection: normal respiratory effort and no use of accessory muscles Auscultation: clear to auscultation bilaterally Cardio Rate: regular rate Rhythm: regular rhythm Heart sounds: no gallops, no murmurs and no rubs Skin General skin exam: other ( warm) Extrem General: No clubbing, No cyanosis and No edema Assessment & Plan Assessment & Plan (1) COPD (chronic obstructive pulmonary disease): Code(s): J44.9 - Chronic obstructive pulmonary disease, unspecified Category: Medical Plan: Suboptimally controlled as patient only been using prednisone albuterol MDI. Restart Trelegy. (2) Environmental allergies: Code(s): Z91.09 - Other allergy status, other than to drugs and biological substances Category: Medical Plan: Results of RAST testing reviewed and essentially normal. At this time there is no significant immunologic component. (3) Pulmonary nodules: Code(s): R91.8 - Other nonspecific abnormal finding of lung field Category: Medical Plan: Official read is pending. On my review no worrisome pulmonary nodules, but does have significant air trapping. Coding Level of Care Code Est Pt Level 4 (97221) Diagnoses COPD (chronic obstructive pulmonary disease) J44.9 Environmental allergies Z91.09 Pulmonary nodules R91.8
[2023-11-12 15:45] VITALS: BP 117/67; PULSE 82; O2SAT 95; BMI 16.2
== END 2023-11-12 16:00 | disposition home or self-care (01) ==
PROVIDERS: PCP Internal Medicine; Visit Provider Internal Medicine Pulmonary Disease
DX: J44.9 Chronic obstructive pulmonary disease, unspecified (principal); Z91.09 Other allergy status, other than to drugs and biological substances; R91.8 Other nonspecific abnormal finding of lung field
CPT/HCPCS: 99214

== ENCOUNTER → 2023-11-12 15:44 | Outpatient (BNVA) | payer OTHER, SELFPAY | PROVIDERS: PCP Internal Medicine; Visit Provider Internal Medicine Pulmonary Disease | DX: J44.9 Chronic obstructive pulmonary disease, unspecified (principal); R91.8 Other nonspecific abnormal finding of lung field; Z91.09 Other allergy status, other than to drugs and biological substances | CPT/HCPCS: 99212 ==

== ENCOUNTER 2024-03-22 08:46 | Outpatient (REF) | payer OTHER, SELFPAY ==
--- NOTE | ~2024-03-22 | XR_ITS ---
EXAMINATION: XR ANKLE, RIGHT. XR FOOT, RIGHT. CLINICAL INFORMATION: Pain COMPARISON: None. TECHNIQUE: 3 views of the right ankle. 3 views of the right foot. FINDINGS: The ankle mortise is preserved. No fracture or malalignment. Moderate heel spur. XR/XR ankle RT 2V IMPRESSION: No fracture or malalignment. Moderate heel spur. Electronically signed by: Lance Vinson MD 03/22/2024 03:20 PM [facility]
--- NOTE | ~2024-03-22 | XR_ITS ---
EXAMINATION: XR ANKLE, RIGHT. XR FOOT, RIGHT. CLINICAL INFORMATION: Pain COMPARISON: None. TECHNIQUE: 3 views of the right ankle. 3 views of the right foot. FINDINGS: The ankle mortise is preserved. No fracture or malalignment. Moderate heel spur. XR/XR foot RT min 3V IMPRESSION: No fracture or malalignment. Moderate heel spur. Electronically signed by: Lance Vinson MD 03/22/2024 03:20 PM [facility]
== END 2024-03-22 08:47 | disposition home or self-care (01) ==
LOC: HO.HMGCX 08:46
PROVIDERS: PCP Internal Medicine; Visit Provider Physician Assistant
DX: M79.671 Pain in right foot (principal); M25.571 Pain in right ankle and joints of right foot
CPT/HCPCS: 73600; 73630; 99212

== ENCOUNTER 2024-03-22 08:46 | Outpatient (AMB) | payer OTHER, SELFPAY ==
--- NOTE | 2024-03-22 08:49 | AM.OFFWIN_ITS ---
Intake Vital Signs 03/22/24 08:54 BP 108/70 Blood Pressure Location Rt brachial Position Sitting Pulse 68 Pulse Source Pulse Oximeter Pulse Oximetry (%) 98 Oxygen Delivery Method Room Air Intake Visit Reasons: EP RT foot in pain, walked into a rock Intake Note: Patient here for right foot pain, she states about 11 days ago she stepped on a rock and continued about her day and a couple of days later it became very painful and is now becoming difficult to put pressure or walk on it and her ankle is swollen. Patient Tobacco Use Status: Former Tobacco user Allergies penicillin V Allergy (Intermediate, Verified 03/22/24 08:52) rash Do you need a note to return to daycare/school/sports/work: No HPI HPI Comments History of Present Illness Details History of Present Illness The patient is a 58-year-old female presenting with right foot and ankle pain following trauma. The injury occurred 13 days ago when she stepped on a rock during an evening shift while walking to work. She initially experienced ten derness but continued with her daily activities. Swelling was noticed in the first few days but managed with warm water soaking, although the symptoms began to worsen with increased pain and swelling. Approximately two days ago, her daughter observed bruising, characterized by a black and blue discoloration on the affected area. 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 The patient reports an inability to flex or point the foot and has had difficulty sleeping due to the pain. Interventions including ibuprofen and Tylenol, heat and ice have been ineffective, providing only temporary relief. The pain has reportedly become more widespread, involving both the foot and ankle. The patient reports no history of significant injury following the initial event and had been able to walk (with pain) and bend the foot until the last few days. [facility] Medical History Left shoulder pain Hearing loss DVT (deep venous thrombosis) (~09/03/21) Ankle pain Surgical History History of tonsillectomy History of tubal ligation Family History Father HIV (human immunodeficiency virus infection) Mother HIV (human immunodeficiency virus infection) Sister Aortic heart murmur Brother HIV (human immunodeficiency virus infection) Sister No problems noted. Maternal Aunt Breast cancer Social History Household Members: Children Housing: Apartment Are you a primary acute care certified nursing assistant to a significant other at home: No Do you presently have visiting nurse or other home services: No Alcohol intake: former Patient Tobacco Use Status: Former Tobacco user Tobacco use type: Cigarette Cigarettes Per Day: 4 e-Cigarette/Vaping Use: Never Used Second Hand Smoke Exposure: No Substance Use Type: Crack/Cocaine and Marijuana service: No Current occupational status: unemployed Current occupational exposures/hazards: No Cognitive needs: No Hearing needs: Yes Vision needs: Yes Review of Systems Const All systems reviewed & are unremarkable except as noted in HPI and below Physical Exam Vital Signs: Last Vital Signs Pulse 68 03/22/24 08:54 BP 108/70 03/22/24 08:54 Pulse Ox 98 03/22/24 08:54 Oxygen Delivery Method Room Air 03/22/24 08:54 Const General: cooperative, healthy appearing, comfortable and no acute distress Orientation/consciousness: patient oriented x3 Limitations: wheelchair and other limitations (hearing loss) HEENT Head: Yes normal to inspection Resp Effort & Inspection: normal respiratory effort and able to speak in complete sentences Neuro General: patient oriented x3 Extrem Right lower extremity: ankle Details: normal to inspection, tenderness Location: of the lateral malleolus and of the medial malleolus, normal ROM and ecchymosis anteromedial Details: single; no swelling, no unusual warmth, no abrasions, no lacerations and achilles tendon exam normal and foot Details: normal capillary refill, tenderness Location: of the dorsal foot and of the medial foot; not of the calcaneus, toes with normal ROM, edema (mild) Location: of the dorsal foot, ecchymosis dorsal medial mid Details: single, vascular exam Details: normal capillary refill, tendon exam (unable to assess as pt could not perform testing 2/2 pain) and motor-sensory exam Details: light-touch normal; no unusual warmth, no abrasion and no laceration Assessment & Plan Assessment & Plan (1) Acute right ankle pain: Code(s): M25.571 - Pain in right ankle and joints of right foot Plan: see below (2) Right foot pain: Code(s): M79.671 - Pain in right foot Plan: For the right ankle sprain and right foot contusion, I am ordering an x-ray of the right foot to exclude the possibility of a fracture given the persistence and severity of symptoms. I advised the patient that stepping on a rock is unlikely to result in a fracture, but the increasing pain and swelling necessitate further investigation. Pending radiographic results, further management might include immobilization, rest, ice application, elevation, or physical therapy if no fracture is identified. My evaluation of the x-ray shows no acute fracture or dislocation therefore I fitted the patient in a short boot with instructions to wear it as much as possible for the next 5-7 days and then slowly wean herself off of the boot by 10-14 days. I gave her an Moe wrap to apply once she is done wearing the boot. Recommended she use ice and ibuprofen and follow up with her PCP if no improvement in her symptoms. Patient was informed and verbally consented to the use of an ambient scribe for clinic note documentation during this visit. Orders: Orders XR foot RT min 3V Today M79.671 - Pain in right foot Coding Level of Care Code Est Pt Level 4 (59600) Diagnoses Acute right ankle pain M25.571 Right foot pain M79.671
[2024-03-22 08:54] VITALS: BP 108/70; PULSE 68; O2SAT 98
== END 2024-03-22 09:57 | disposition home or self-care (01) ==
PROVIDERS: PCP Internal Medicine; Visit Provider Physician Assistant
DX: M25.571 Pain in right ankle and joints of right foot (principal); M79.671 Pain in right foot

== ENCOUNTER 2024-04-05 08:33 | Outpatient (AMB) | payer OTHER, SELFPAY ==
--- NOTE | 2024-04-05 09:05 | AM.OFFWIN_ITS ---
Intake Vital Signs 04/05/24 09:15 Weight 92 lb BP 110/70 Blood Pressure Location Lt brachial Position Sitting Pulse 63 Pulse Source Pulse Oximeter Temp 97.9 F Temp Source Oral Pulse Oximetry (%) 98 Oxygen Delivery Method Room Air Intake Visit Reasons: EP-fever, cough, chest tights, spitting mucus Intake Note: Patient here for wet cough, chest tightness, fever and yellow mucus that has been present for a couple of days. Patient Tobacco Use Status: Former Tobacco user Allergies penicillin V Allergy (Intermediate, Verified 04/05/24 09:11) rash Do you need a note to return to daycare/school/sports/work: Yes HPI HPI Comments History of Present Illness Details History The patient is a 58-year-old female presenting with persistent cough and chest congestion. She reported that these symptoms have persisted for two weeks, noting increased severity compared to her usual COPD-related symptoms. The cough is accompanied by the production of yellow mucus. Although she has not experienced fevers, she has mentioned difficulty sleeping due to coughing. She also feels shortness of breath, particularly at night. The patient typically manages her COPD with three inhalers and 10 mg of prednisone daily. She uses Ventolin regularly due to increased need over the last couple of weeks. Additional symptoms include yellow mucus expectoration and a sore throat, worsened by continuous coughing. Recently, the patient's grandson was diagnosed with pneumonia, raising concern about similar symptoms, as the patient had contact over the weekend. She experiences fluid accumulation behind the left tympanic membrane, attributed to recent cold symptoms, and frequent headaches were noted. Physical Exam General: Cooperative, healthy appearing, comfortable and no acute distress Orientation/consciousness: Patient oriented x3 Limitations: hard of hearing Head: Normal to inspection Ears: hearing aid in right ear, external ears normal, fluid behind the bilateral tympanic membranes Nose: Normal external nose present, Normal nares present and No nasal discharge present Face and sinus: Normal facial exam and frontal sinuses tender Mouth: Normal oral and palatal mucosa present and moist mucous membranes Throat: Yes tonsils normal, Yes uvula midline. Posterior oropharynx erythema Eyes: Appearance normal, both eyes and all related structures Neck: Normal visual inspection Respiratory: Clear to auscultation bilaterally. Normal respiratory effort, able to speak in complete sentences, Actively coughing, no respiratory distress, not tachypneic, no tripod positioning and no use of accessory muscles Cardiovascular: Regular rate and rhythm. Normal S1 and S2 Skin: No rashes or lesions noted Neuro: Patient oriented x3 Extremities: Normal to inspection and Yes no clubbing, cyanosis or edema [facility] Medical History Left shoulder pain Hearing loss DVT (deep venous thrombosis) (~09/03/21) Ankle pain Surgical History History of tonsillectomy History of tubal ligation Family History Father HIV (human immunodeficiency virus infection) Mother HIV (human immunodeficiency virus infection) Sister Aortic heart murmur Brother HIV (human immunodeficiency virus infection) Sister No problems noted. Maternal Aunt Breast cancer Social History Household Members: Children Housing: Apartment Are you a primary behavioral health care manager to a significant other at home: No Do you presently have visiting nurse or other home services: No Alcohol intake: former Patient Tobacco Use Status: Former Tobacco user Tobacco use type: Cigarette Cigarettes Per Day: 4 e-Cigarette/Vaping Use: Never Used Second Hand Smoke Exposure: No Substance Use Type: Crack/Cocaine and Marijuana service: No Current occupational status: unemployed Current occupational exposures/hazards: No Cognitive needs: No Hearing needs: Yes Vision needs: Yes Review of Systems Const All systems reviewed & are unremarkable except as noted in HPI and below Physical Exam Vital Signs: Last Vital Signs Temp 97.9 F 04/05/24 09:15 Pulse 63 04/05/24 09:15 BP 110/70 04/05/24 09:15 Pulse Ox 98 04/05/24 09:15 Oxygen Delivery Method Room Air 04/05/24 09:15 Assessment & Plan Assessment & Plan (1) URI, acute: Code(s): J06.9 - Acute upper respiratory infection, unspecified Plan: - Obtain a chest x-ray to evaluate for pneumonia. - Prescribe Tessalon Perles for symptomatic cough relief, particularly at night. - Prescribe a Z-Clifton azithromycin) to address potential bacterial infection and assist in lung clearance. - Increase prednisone dosage to 20 mg daily for five days to reduce chest and sinus congestion. - Conduct tests for influenza, COVID-19, and RSV to rule out viral infections. - Continue current COPD medications and use Ventolin as needed. - The prescriptions to be sent to the pharmacy for Scott Trevino and a Z-Clifton. Patient was informed and verbally consented to the use of an ambient scribe for clinic note documentation during this visit (2) COPD exacerbation: Code(s): J44.1 - Chronic obstructive pulmonary disease with (acute) exacerbation Plan: as above Orders: Orders SARS-CoV2/FLU/RSV Today J06.9 - Acute upper respiratory infection, unspecified XR chest 2V Today R05.9 - Cough, unspecified Medications: New benzonatate 200 mg PO TID PRN 14 caps 0RF cough prednisone 20 mg PO QAM 5 tabs 0RF azithromycin For 250 mg dose pack: take 500 mg today (day 1), then 250 mg for 4 days (days 2-5) PO 6 tabs 0RF Coding Level of Care Code Est Pt Level 4 (01893) Diagnoses URI, acute J06.9 COPD exacerbation J44.1
[2024-04-05 09:15] VITALS: BP 110/70; PULSE 63; TEMP 36.6; O2SAT 98
== END 2024-04-05 09:47 | disposition home or self-care (01) ==
PROVIDERS: PCP Internal Medicine; Visit Provider Physician Assistant
DX: J06.9 Acute upper respiratory infection, unspecified (principal); J44.1 Chronic obstructive pulmonary disease with (acute) exacerbation

== ENCOUNTER 2024-04-05 08:33 | Outpatient (REF) | payer OTHER, SELFPAY | END 2024-04-05 08:34 | disposition home or self-care (01) | LOC: HO.LAB 08:33 | PROVIDERS: PCP Internal Medicine | DX: J06.9 Acute upper respiratory infection, unspecified (principal); J44.1 Chronic obstructive pulmonary disease with (acute) exacerbation | CPT/HCPCS: 99212 ==

== ENCOUNTER 2024-04-05 09:47 | Outpatient (REF) | payer OTHER, SELFPAY ==
--- NOTE | ~2024-04-05 | XR_ITS ---
EXAMINATION: XR CHEST CLINICAL INFORMATION: R05.9 - Cough, unspecified. COMPARISON: CT chest of 10/09/2023, x-ray chest of 08/12/2023, 08/11/2023, and 06/18/2023. TECHNIQUE: 2 views of the chest were obtained. FINDINGS: The lungs remain hyperinflated. There is no gross pneumothorax. Heart size is normal. Degenerative changes in the thoracic spine. No significant pleural effusion. Mild anterior loss of height of a lower thoracic vertebral body also noted on exam of 06/18/2023 XR/XR chest 2V IMPRESSION: No new focal consolidation. Hyperinflated lungs with mild emphysematous changes redemonstrated. This study was presented today April 05, 2024 for interpretation. Stat results provided at this time as requested by referring provider. Electronically signed by: Leonor Bernstein MD 04/05/2024 01:18 PM [facility]
[2024-04-05 14:03] LABS: Influenza A PCR NEGATIVE (Negative); Influenza B PCR NEGATIVE (Negative); Resp Syncy Virus RNA Qual PCR NEGATIVE (Negative); SARS COV2 PCR INHOUSE NEGATIVE (Negative)
== END 2024-04-05 09:48 | disposition home or self-care (01) ==
LOC: HO.HMGCX 09:47
PROVIDERS: PCP Internal Medicine; Visit Provider Physician Assistant
DX: J06.9 Acute upper respiratory infection, unspecified (principal); R05.9 Cough, unspecified
CPT/HCPCS: 0241U; 71046

== ENCOUNTER 2024-09-30 16:00 | Outpatient (AMB) | payer OTHER, SELFPAY ==
[2024-09-30 16:00] VITALS: BP 112/60; PULSE 66; TEMP 36.7; O2SAT 94; BMI 18.6
--- NOTE | 2024-09-30 16:00 | MHC.OFFWIV ---
Intake Vital Signs 09/30/24 16:00 Height 5 ft 3 in Weight 105 lb BMI 18.6 BP 112/60 Blood Pressure Location Lt brachial Position Sitting Pulse 66 Pulse Source Pulse Oximeter Temp 98.1 F Temp Source Oral Pulse Oximetry (%) 94 Oxygen Delivery Method Room Air Intake Visit Reasons: EP-rt heel pain Intake Note: Pt presents to the office today for c/o right heel pain that started 2 days ago when she woke up. Pt denies any injury to her foot. Patient Tobacco Use Status: Current everyday Tobacco user Allergies penicillin V Allergy (Intermediate, Verified 09/30/24 16:06) rash HPI HPI Comments History of Present Illness Details History - The patient is a 59-year-old female presenting with nerve pain in the right heel. - The pain began 24 hours ago, described as pulsating and stabbing, with no known inciting event. - History of a previous foot injury months ago after stepping on a hard rock, treated with a boot and resolved in two days. - Current symptoms include sharp shooting pain extending from the corner of the right heel up the right leg, inability to flex or extend the foot without pain, and tingling in the toes of the right foot. - Previous use of a boot is not alleviating current symptoms, and Aleve was taken without relief. - The patient is on Eliquis, started a year ago, but has been taking ibuprofen and Aleve. Physical Exam General: Cooperative, healthy appearing, comfortable, no acute distress and well developed Orientation: Patient oriented x3 Limitations: Limited ability to flex or extend the right foot due to pain Head: Normal to inspection Ears: Hearing grossly normal bilaterally Nose: Normal External nose present Face and sinus: Normal facial exam Mouth: normal, moist oral mucosa Eyes: Appearance normal, both eyes and all related structures Neck: Normal visual inspection and Yes full ROM Respiratory: Normal respiratory effort and able to speak in complete sentences. Skin: no rashes or lesions noted Neuro: Patient oriented x3, limping gait 2/2 pain Extremities: Moving all extremities normally except for the right foot, which has limited flex/extend with pain, toes NVI, negative TTP on plantar aspect of foot except for the tip of the right heel,no TTP remainder of foot. NVI all toes. FORMERLY [facility] Medical History Left shoulder pain Hearing loss DVT (deep venous thrombosis) (~09/03/21) Ankle pain Surgical History History of tonsillectomy History of tubal ligation Family History Father HIV (human immunodeficiency virus infection) Mother HIV (human immunodeficiency virus infection) Sister Aortic heart murmur Brother HIV (human immunodeficiency virus infection) Sister No problems noted. Maternal Aunt Breast cancer Social History Household Members: Children Housing: Apartment Are you a primary daycare assistant to a significant other at home: No Do you presently have visiting nurse or other home services: No Alcohol intake: former Patient Tobacco Use Status: Current everyday Tobacco user Tobacco use type: Cigarette Cigarettes Per Day: 4 e-Cigarette/Vaping Use: Never Used Second Hand Smoke Exposure: No Substance Use Type: Crack/Cocaine and Marijuana service: No Current occupational status: unemployed Current occupational exposures/hazards: No Cognitive needs: No Hearing needs: Yes Vision needs: Yes Review of Systems Const All systems reviewed & are unremarkable except as noted in HPI and below Physical Exam Vital Signs: Last Vital Signs Temp 98.1 F 09/30/24 16:00 Pulse 66 09/30/24 16:00 BP 112/60 09/30/24 16:00 Pulse Ox 94 09/30/24 16:00 Oxygen Delivery Method Room Air 09/30/24 16:00 BMI result Body Mass Index 18.6 Assessment & Plan Assessment & Plan (1) Pain of right heel: Code(s): M79.671 - Pain in right foot Plan: 1. Nerve Pain In The Right Heel - Prescribed prednisone for five days to reduce inflammation. - Advised to ice the area and keep the foot elevated to alleviate symptoms. - Recommended to avoid Aleve and ibuprofen due to current Eliquis use. - Follow-up advised if symptoms do not improve after medication course. Medications: New prednisone 20 mg PO QAM 5 tabs 0RF Coding Level of Care Code Est Pt Level 3 (83461) Diagnoses Pain of right heel M79.671
== END 2024-09-30 16:24 | disposition home or self-care (01) ==
PROVIDERS: PCP Internal Medicine; Visit Provider Physician Assistant
DX: M79.671 Pain in right foot (principal)

== ENCOUNTER → 2024-09-30 16:00 | Outpatient (BNVA) | payer OTHER, SELFPAY | PROVIDERS: PCP Internal Medicine | DX: M79.671 Pain in right foot (principal) | CPT/HCPCS: 99212 ==

== ENCOUNTER 2024-10-16 06:25 | Observation (INO) | payer OTHER, SELFPAY ==
[2024-10-16] VITALS (9 sets, daily range): BP systolic 114–165; BP diastolic 61–82; PULSE 63–93; RESP 16–20; TEMP 36.5–37.2; O2SAT 89–100; BMI 19.1; BMI 18.7
--- NOTE | ~2024-10-16 | XR_ITS ---
CLINICAL HISTORY: sob 1 view chest x-ray Comparison: 04/05/2024 Findings: Hyperinflated versus emphysematous lungs redemonstrated. No lung infiltrate. Heart size is normal. No acute fracture. IMPRESSION: 1. No acute findings. This document has been electronically signed by: Izabel Varma MD on 10/16/2024 10:11:53
--- NOTE | 2024-10-16 06:39 | ECG_ITS ---
Test Reason : SOB Blood Pressure : */* mmHG Vent. Rate : 80 BPM Atrial Rate : 80 BPM P-R Int : 138 ms QRS Dur : 82 ms QT Int : 398 ms P-R-T Axes : 84 71 76 degrees QTcB Int : 459 ms Normal sinus rhythm Normal ECG When compared with ECG of 18-Jun-2023 10:56, Non-specific change in ST segment in Anterior leads Referred By: Generic ED Physician Electronically Signed By: OCTAVIANO DOLL
--- NOTE | 2024-10-16 06:51 | PC.NURSE ---
Dr Zarate made aware of pt status, RT at bedside. Orders placed based on MD recommedations.
[2024-10-16 07:11] LABS: MANUAL DIFF FLAG NO
[2024-10-16 07:13] LABS: Basophils Absolute Auto 0.1 X10*3/uL (0.0-0.2); Basophils Percent Auto 0.5 % (0-2); Eosinophils Absolute Auto 0.5 X10*3/uL (0.0-0.4); Eosinophils Percent Auto 4.4 % (0-4); Hematocrit 42.7 % (37.0-47.0); Hemoglobin 14.5 g/dl (12.0-16.0); Imm Gran Abs Auto 0.04 X10*3/uL (0.00-0.03); Imm Gran Pct Auto 0.4 % (0.0-0.4); Lymphocytes Absolute Auto 1.7 X10*3/uL (1.2-4.9); Lymphocytes Percent Auto 16.5 % (20-40); Mean Corpuscular Hemoglobin 30.1 pg (27.0-33.0); Mean Corpuscular Volume 88.8 fL (80.0-98.0); Mean Platelet Volume 7.9 fL (9.4-12.3); Monocytes Absolute Auto 0.9 X10*3/uL (0.1-1.2); Monocytes Percent Auto 8.7 % (2-11); Neutrophils Absolute Auto 7.3 x10*3/uL (2.0-8.3); Neutrophils Percent Auto 69.5 % (45-73); Platelet Count 264 X10*3/uL (160-400); Red Blood Count 4.81 X10*6/uL (4.20-5.50); Red Cell Distribution Width 13.8 % (11.0-16.0); White Blood Count 10.5 X10*3/uL (4.8-10.8)
[2024-10-16 07:44] LABS: Alanine Aminotransferase 14 U/L (0-31); Albumin Level 4.5 g/dL (3.5-5.0); Alkaline Phosphatase 93 U/L (39-117); Anion Gap 15 (12-20); Aspartate Amino Transferase 27 U/L (5-31); Bilirubin Total 0.6 mg/dL (0.0-1.0); Blood Urea Nitrogen 12 mg/dL (9-16); Calcium 9.9 mg/dL (8.4-10.2); Carbon Dioxide 24 mmol/L (22-29); Chloride 108 mmol/L (96-108); Estimated Glomerular Filt Rate > 60; Glucose Random 115 mg/dL (60-115); Potassium 4.1 mmol/L (3.3-5.1); Sodium 143 mmol/L (135-145); Total Protein 7.6 g/dL (6.5-8.0)
[2024-10-16 07:49] LABS: Influenza A PCR NEGATIVE (Negative); Influenza B PCR NEGATIVE (Negative); Resp Syncy Virus RNA Qual PCR NEGATIVE (Negative); SARS COV2 PCR INHOUSE NEGATIVE (Negative)
[2024-10-16 07:50] LABS: B Type Natriuretic Peptide < 10 pg/mL (<100)
[2024-10-16 07:56] LABS: Troponin-I High Sensitivity < 2.7 ng/L (<3.5-17.0)
--- NOTE | 2024-10-16 08:09 | ED_ITS ---
HPI - Asthma General Chief Complaint: Asthma Stated Complaint: hx COPD on nonrebreather 99% Time Seen by Provider: 10/16/24 08:07 Source: patient, family (patient's daughter) and EMS Mode of arrival: EMS Limitations: no limitations History of Present Illness ED Provider: Adriana Santana PA-C HPI Narrative: Patient is a 59 year old assigned female at with a history of COPD and PE on Eliquis presenting to the emergency department today with chest pain and shortness of breath. Patient states that she had an episode of chest pain today that has largely resolved but she continues to feel short of breath. Patient states that she is on prednisone for something else but that usually helps her breathing and it has not today. Patient denies any dizziness, lightheadedness, abdominal pain, nausea, vomiting, fever, chills, blurry vision, double vision, loss of vision, back pain, night sweats, pain with urination, increased urinary frequency, increased urinary urgency, blood in her urine or stool, syncope or a near syncopal episode, recent trauma or falls, bowel incontinence, bladder incontinence, or any other complaints at this time. MD complaint: shortness of breath Associated symptoms: chest pain Related Data Home Medications ?Medication ?Instructions ?Recorded ?Confirmed cyclobenzaprine 5 mg tablet 5 mg PO BEDTIME 09/30/24 Previous Rx's ?Medication ?Instructions ?Recorded pulse oximeter #1 ea 09/04/21 albuterol sulfate 2.5 mg/0.5 mL 5 mg inhalation Q4H SC N shortness 03/30/23 solution for nebulization of breath or wheezing #30 ea apixaban 5 mg tablet (Eliquis) 5 mg PO BID #60 tabs lidocaine 5 % topical patch 1 patch topical DAILY #30 ea 05/20/23 albuterol sulfate 90 mcg/actuation 2 puff PO Q4-6H PRN shortness of 08/26/23 aerosol inhaler (Ventolin HFA) breath or wheezing #18 ea benzonatate 200 mg capsule 200 mg PO TID PRN cough #14 caps 04/05/24 umeclidinium 62.5 mcg-vilanterol 1 inh inhalation PAPITO Y 30 days #1 08/24/24 25 mcg/actuation powdr for ea inhalation (Anoro Ellipta) prednisone 20 mg tablet 20 mg PO QAM #5 tabs 5 Allergies Allergy/AdvReac Type Severity Reaction Status Date / Time penicillin V Allergy Intermediate rash Verified 10/16/24 06:38 Review of Systems 2 Constitutional: Constitutional: Reports no additional constitutional complaints, Denies chills, Denies fever(s) and Denies night sweats Eyes: Eyes: Reports no additional eye complaints, Denies blurry vision, Denies change in vision, Denies diplopia, Denies eye discharge, Denies loss of vision and Denies eye pain ENT: Denies dizziness Cardiovascular: Cardiovascular: Reports no additional cardiovascular complaints, Reports chest pain (now resolved), Denies lightheadedness, Denies Loss of Consciousness and Reports dyspnea Respiratory: Respiratory: Reports no additional respiratory complaints, Reports dyspnea and Reports wheezing Gastrointestinal: Gastrointestinal: Reports no additional gastrointestinal complaints, Denies abdominal pain, Denies melena, Denies hematochezia, Denies change in bowel habits and Denies change in stool character Genitourinary: Genitourinary: Denies hematuria, Denies urinary frequency, Denies dysuria, Denies urinary incontinence, Denies urinary hesitancy and Denies urinary urgency Musculoskeletal: Musculoskeletal: Reports no additional musculoskeletal complaints, Denies numbness and Denies tingling Neurologic: Denies dizziness, Denies loss of vision, Denies numbness and Denies tingling Psychiatric: Psychiatric: Reports no additional psychiatric complaints Endocrine: Endocrine: Reports no additional endocrine complaints Hematologic/Lymphatic: Hematologic/Lymphatic: Reports no additional hematologic/lymphatic complaints Allergic/Immunologic: Allergic/Immunologic: Reports no additional allergic/immunologic complaints and Reports wheezing PMFSH Past Medical History Attestation statement: The following information was validated with the patient. Source: old records reviewed and nursing notes reviewed Medical History Left shoulder pain Hearing loss DVT (deep venous thrombosis) (~09/03/21) Ankle pain Surgical History History of tonsillectomy History of tubal ligation Family History Family History Father HIV (human immunodeficiency virus infection) Mother HIV (human immunodeficiency virus infection) Sister Aortic heart murmur Brother HIV (human immunodeficiency virus infection) Sister No problems noted. Maternal Aunt Breast cancer Social History Social History Household Members: Children Housing: Apartment Are you a primary career placement specialist to a significant other at home: No Do you presently have visiting nurse or other home services: No Alcohol intake: former Patient Tobacco Use Status: Current everyday Tobacco user Tobacco use type: Cigarette Cigarettes Per Day: 4 e-Cigarette/Vaping Use: Never Used Second Hand Smoke Exposure: No Substance Use Type: Crack/Cocaine and Marijuana Advance Directives: No Advance Directives Information Provided: Yes service: No Current occupational status: unemployed Current occupational exposures/hazards: No Cognitive needs: No Hearing needs: Yes Vision needs: Yes Physical Exam 2 Vital Signs: Vital Signs: Last Vital Signs Pulse 68 10/16/24 09:01 Resp 18 10/16/24 09:01 BP 137/79 10/16/24 06:33 Pulse Ox 97 10/16/24 06:33 O2 Del Method Room Air 10/16/24 06:33 BMI result Body Mass Index 19.1 Const: General: cooperative, no acute distress, alert and awake Nutritional Appearance: well nourished Orientation/consciousness: patient oriented x3 HEENT: Head: Yes normal to inspection and Yes atraumatic Ears: hearing grossly normal bilaterally and external ears normal General nose exam: Normal external nose present, no nasal discharge noted and no epistaxis Face and sinus: Yes normal facial exam, No abrasion and No laceration Mouth: Normal oral and palatal mucosa present, no drooling and no muffled voice Eyes: General: appearance normal, both eyes and all related structures P eriorbital: periorbital findings normal Eyelids: Yes eyelids normal C onjunctivae: conjunctivae normal Pupils: Equal, round and reactive pupils present EOM: EOMs intact bilaterally Neck: Neck: Yes normal visual inspection, Yes full ROM and Yes no lymphadenopathy Resp: Effort & Inspection: normal respiratory effort and able to speak in complete sentences Auscultation: wheezes scattered wheezes and right lower and diminished lung sounds on the left throughout Neuro: General: patient oriented x3, moves all extremities and CN's II-XI intact bilaterally Cranial nerves: Yes Equal, round and reactive pupils present Cognition (Neuro): normal cognition Extrem: General: Yes normal to inspection, Yes full ROM and Yes capillary refill normal Psych: Appearance: grossly normal Mental Status: mental status grossly normal Affect: normal affect Attitude: cooperative Thought process: N ormal thought process present Thought content: Normal thought content present Insight: Good insight present (Psych) Medications Administered Discontinued Medications Generic Name Dose Route Start Last Admin Trade Name Jose Armando PRN Reason Stop Dose Admin Azithromycin 500 mg 10/16/24 09:14 10/16/24 09:21 Azithromycin 500 Mg Tablet PO 10/16/24 09:15 500 mg ONCE ONE Administration Albuterol Sulfate 5 mg/ 0 mg 10/16/24 08:57 10/16/24 09:00 Albuterol/Ipratropium 3 ml INHALE 10/16/24 08:58 7.5 each ONCE ONE Administration Magnesium Sulfate/Dextrose 1 gm in 100 mls @ 100 mls/hr 10/16/24 08:15 10/16/24 09:44 Magnesium Sulfate/D5w IV 10/16/24 09:14 Infused ONCE ONE Infusion Methylprednisolone Sodium Succinate 60 mg 10/16/24 08:15 10/16/24 08:22 Methylprednisolone Sod Succ 125 Mg Vial IVPUSH 10/16/24 08:16 60 mg ONCE ONE Administration Medical Decision Making Medical Decision Making [facility] Narrative: Patient is a 59 year old assigned female at with a history of COPD and PE on Eliquis presenting to the emergency department today with chest pain and shortness of breath. Patient's physical exam was as noted in the physical exam portion of this note. Patient's blood work was unremarkable. Patient's EKG was unremarkable. Patient's chest x-ray showed no acute process. Patient's clinical presentation is not consistent with sepsis (@0930). I explained my physical exam findings as well as all test results to the patient and the patient's daughter. I answered all questions asked by the patient and the patient's daughter. Patient was given IV magnesium, solu-medrol, and a breathing treatment which she states helped her symptoms some. Patient continued to have significant wheezing. Although the patient denied history of asthma, I am suspicious she has asthma- COPD overlap. I spoke with the hospitalist team who agreed to admission. Patient and the patient's daughter verbalized agreement and understanding with this treatment plan and admission. Differential Diagnosis Differential Diagnoses: The differential diagnosis associated with the presentation includes Asthma exacerbation COPD exacerbation Shortness of breath Admission/Observation Consideration of admission/observation: Escalation of care including admission/observation considered Patient admitted as noted in the MDM [place] portion of this note. Consult Healthcare Provider Management of the patient was discussed with: Hospitalist (agreed to admission as noted in the MDM Rationale portion of this note. ) Lab Data [facility] Lab Attestation statement: I reviewed the patient's lab results. My interpretation of these results are in the MDM Rationale portion of this note. 10/16/24 07:06 10/16/24 07:06 Labs: Lab Results 10/16/24 10/16/24 Range/Units 07:06 08:30 WBC 10.5 (4.8-10.8) X10*3/uL RBC 4.81 (4.20-5.50) X10*6/uL Hgb 14.5 (12.0-16.0) g/dl Hct 42.7 (37.0-47.0) % MCV 88.8 (80.0-98.0) fL MCH 30.1 (27.0-33.0) pg MCHC 34.0 (31.0-35.0) g/dl RDW 13.8 (11.0-16.0) % Plt Count 264 (160-400) X10*3/uL MPV 7.9 L (9.4-12.3) fL Immature Gran % (Auto) 0.4 (0.0-0.4) % Neut % (Auto) 69.5 (45-73) % Lymph % (Auto) 16.5 L (20-40) % Edmunds % (Auto) 8.7 (2-11) % Eos % (Auto) 4.4 H (0-4) % Baso % (Auto) 0.5 (0-2) % Lymph # (Auto) 1.7 (1.2-4.9) X10*3/uL Edmunds # (Auto) 0.9 (0.1-1.2) X10*3/uL Eos # (Auto) 0.5 H (0.0-0.4) X10*3/uL Baso # (Auto) 0.1 (0.0-0.2) X10*3/uL Abs Immat Gran (auto) 0.04 H (0.00-0.03) X10*3/uL Absolute Neuts (auto) 7.3 (2.0-8.3) x10*3/uL Absolute Nucleated RBC 0.000 (0.0-0.012) X10*3/uL Nucleated RBC % (auto) 0.0 (0.0-0.2) /100WBC Sodium 143 (135-145) mmol/L Potassium 4.1 (3.3-5.1) mmol/L Chloride 108 (96-108) mmol/L Carbon Dioxide 24 (22-29) mmol/L Anion Gap 15 (12-20) BUN 12 (9-16) mg/dL Creatinine 0.85 (0.5-1.4) mg/dL Estim Creat Clear Calc 55.0 Estimated GFR > 60 Random Glucose 115 (60-115) mg/dL Calcium 9.9 (8.4-10.2) mg/dL Total Bilirubin 0.6 (0.0-1.0) mg/dL AST 27 (5-31) U/L ALT 14 (0-31) U/L Alkaline Phosphatase 93 (39-117) U/L Troponin I High Sens < 2.7 < 2.7 (<3.5-17.0) ng/L B-Natriuretic Peptide < 10 (<100) pg/mL Total Protein 7.6 (6.5-8.0) g/dL Albumin 4.5 (3.5-5.0) g/dL Influenza Type A (PCR) NEGATIVE (Negative) Influenza Type B (PCR) NEGATIVE (Negative) RSV RNA Qual (PCR) NEGATIVE (Negative) SARS-CoV-2 RNA (RT-PCR) NEGATIVE (Negative) Independent Interpretation I performed an independent interpretation of an: EKG and Plain X-Ray Interpretation: My interpretation is in agreement with the radiologist's impression of this imaging study. L CLINICAL HISTORY: sob 1 view chest x-ray Comparison: 04/05/2024 Findings: Hyperinflated versus emphysematous lungs redemonstrated. No lung infiltrate. Heart size is normal. No acute fracture. IMPRESSION: 1. No acute findings. This document has been electronically signed by: Izabel Varma MD on 10/16/2024 10:11:53 Dictated By: Izabel Varma MD Signed By: Electronically signed by Izabel Varma MD 10/16/24 1013 I independently interpreted this EKG and am in agreement with the below findings: Vent. Rate: 80 BPM Atrial Rate: 80 BPM P-R Int: 138 ms QRS Dur: 82 ms QT Int: 398 ms P-R-T Axes: 84 71 76 degrees QTcB Int: 459 ms Normal sinus rhythm Normal ECG When compared with ECG of 18-Jun-2023 10:56, Non-specific change in ST segment in Anterior leads DD/ [id number] Radiology Impression Discussion of test interpretation with radiology: I have reviewed the radiologist's reading. Independent Historian Clinical information obtained from an independent historian. History obtained from or confirmed by: EMS (EMS provided additional history and confirmed the history provided by the patient.) and Other (Patient's daughter provided additional history and confirmed the history provided by the patient.) Critical Care Time Critical Care Time Critical Care Time: Yes Total Critical Care Time: 36 Attestation: I spent 36 minutes of Critical Care Time with this patient. This does not include time spent on separately reported billable procedures. Discharge Plan Discharge Clinical Impression: COPD (chronic obstructive pulmonary disease), Wheezing Patient Disposition: Admitted As Inpatient Print Language: Swedish
[2024-10-16] MEDS: Magnesium Sulfate/D5W 1 GM/100 ML PIGGYBACK IV (08:21)
[2024-10-16] MEDS: Albuterol Sulfate 5 MG, Albuterol/Iprat 2.5/0.5MG 3 ML 3 ML INHALE (09:00)
[2024-10-16 09:09] LABS: Troponin-I High Sensitivity < 2.7 ng/L (<3.5-17.0)
[2024-10-16] MEDS: Azithromycin 500 MG TABLET PO (09:21)
--- NOTE | 2024-10-16 09:32 | P.HPHOSP_ITS ---
History of Present Illness Date of Service: 10/16/24 Chief Complaint: SOB Pt is a 59-year-old female with a PMH significant for?COPD not on home O2, hx of DVT/PE on Eliquis, and active smoker of half a pack daily who presents to the ED with increased?SOB and chest tightness x10 days, worse this morning. Pt reports has been having increased SOB and chest tightness/pain associated with inspiration since last Thursday when the weather was very hot and muggy. Pt has been using her inhalers repeatedly with minimal effect. Symptoms have worsened in the past few days until this morning when pt woke up and was so short of breath that she could not even walk to her bathroom. Also complains of increased cough productive of clear to yellowish sputum. No measured fever. Denies chills. No nausea, vomiting, abdominal pain. In the ED pt with initial elevated HR of 93, satting as low as 89% on RA. Labs were grossly unremarkable. No leukocytosis. Stable H&H. No significant electrolyte abnormalities. Bicarb WNL. Serial troponins negative. Renal and hepatic function WNL. Tested negative for flu, COVID, RSV. CXR negative for acute findings. EKG demonstrated normal sinus rhythm nonspecific, slight ST depression V4 and V5. Pt was treated in the ED with Mag sulfate, Solu-Medrol, DuoNebs, and azithromycin. Pt is admitted to the hospital for treatment and further evaluation of acute hypoxic respiratory failure in the setting of COPD exacerbation. Of note, pt was originally going to be admitted under observation for COPD exacerbation not sufficiently alleviated by ED treatment; however, pt has subsequently become hypoxic and will be admitted to the hospital as a full admission. Review of Systems 2 Review of Systems: Negative except for that which is stated in the HPI. [facility] Medical History Left shoulder pain Hearing loss DVT (deep venous thrombosis) (~09/03/21) Ankle pain Family History Father HIV (human immunodeficiency virus infection) Mother HIV (human immunodeficiency virus infection) Sister Aortic heart murmur Brother HIV (human immunodeficiency virus infection) Sister No problems noted. Maternal Aunt Breast cancer Surgical History History of tonsillectomy History of tubal ligation Social History Household Members: Children Housing: Apartment Are you a primary geriatric personal care aide to a significant other at home: No Do you presently have visiting nurse or other home services: No Alcohol intake: former Patient Tobacco Use Status: Current everyday Tobacco user Tobacco use type: Cigarette Cigarettes Per Day: 4 e-Cigarette/Vaping Use: Never Used Second Hand Smoke Exposure: No Substance Use Type: Crack/Cocaine and Marijuana Advance Directives: No Advance Directives Information Provided: Yes service: No Current occupational status: unemployed Current occupational exposures/hazards: No Cognitive needs: No Hearing needs: Yes Vision needs: Yes Meds Allergies Allergy/AdvReac Type Severity Reaction Status Date / Time penicillin V Allergy Intermediate rash Verified 10/16/24 06:38 Home Medications ?Medication ?Instructions ?Recorded ?Confirmed ?Last Taken ?Type cyclobenzaprine 5 mg tablet 5 mg PO BEDTIME 09/30/24 Unknown History Physical Exam 2 Vital Signs and Narrative: Vital Signs: Last Vital Signs Pulse 68 10/16/24 09:01 Resp 18 10/16/24 09:01 BP 137/79 10/16/24 06:33 Pulse Ox 97 10/16/24 06:33 O2 Del Method Room Air 10/16/24 06:33 BMI result Body Mass Index 19.1 General: AOx3, no acute distress Resp: Lungs clear but significantly diminished. Poor airflow. CVS: S1, S2, RRR GI: +BS, NT, no distention Skin: Warm, dry Neuro: Cranial nerves II-XII grossly intact bilaterally. Motor grossly intact bilaterally Extremities: No edema Psych: Appropriate affect Results Labs 10/16/24 07:06 10/16/24 07:06 Labs: Laboratory Results - last 24 hr 10/16/24 10/16/24 07:06 08:30 MCV 88.8 MCH 30.1 MCHC 34.0 RDW 13.8 Plt Count 264 MPV 7.9 L Immature Gran % (Auto) 0.4 Neut % (Auto) 69.5 Lymph % (Auto) 16.5 L Daniels % (Auto) 8.7 Eos % (Auto) 4.4 H Baso % (Auto) 0.5 Lymph # (Auto) 1.7 Daniels # (Auto) 0.9 Eos # (Auto) 0.5 H Baso # (Auto) 0.1 Abs Immat Gran (auto) 0.04 H Absolute Neuts (auto) 7.3 Absolute Nucleated RBC 0.000 Nucleated RBC % (auto) 0.0 Anion Gap 15 Estim Creat Clear Calc 55.0 Estimated GFR > 60 Random Glucose 115 Calcium 9.9 Total Bilirubin 0.6 AST 27 ALT 14 Alkaline Phosphatase 93 Troponin I High Sens < 2.7 < 2.7 B-Natriuretic Peptide < 10 Total Protein 7.6 Albumin 4.5 Influenza Type A (PCR) NEGATIVE Influenza Type B (PCR) NEGATIVE RSV RNA Qual (PCR) NEGATIVE SARS-CoV-2 RNA (RT-PCR) NEGATIVE Assessment and Plan (1) COPD exacerbation: Status: Acute (2) Acute hypoxic respiratory failure: Status: Acute Plan Pt is a 59-year-old female with a PMH significant for?COPD not on home O2, hx of DVT/PE on Eliquis, and active smoker of half a pack daily who presents to the ED with increased?SOB and chest tightness x10 days, worse this morning. Pt is admitted to the hospital for treatment and further evaluation of acute hypoxic respiratory failure in the setting of COPD exacerbation. Acute hypoxic respiratory failure in the setting of COPD exacerbation Increased SOB, wheezing, cough x10 days, worse this morning, desatting to 89% on RA (not on home O2) Not sufficiently alleviated by ED treatments No sepsis, CXR negative for pneumonia Will treat with DuoNebs standing and p.r.n., Solu-Medrol, guaifenesin Titrate supplemental O2 >92,% wean as tolerated Azithromycin for pleiotropic effects Monitor respiratory status Chest tightness/pain Appears pleuritic and not cardiogenic, associated with inspiration EKG nonischemic, serial troponins negative Treat as above Hx of DVT/PE Continue Eliquis Chbronic lower back pain Continue cyuclobenzaprine, lidocaine patch Nicotine dependence NRT, smoking cessation counseled Full Code Attending:?Dr. Mendoza DVT Prophylaxis: On Eliquis Pt will be admitted to the hospital for at least a 2 night stay for treatment further evaluation of acute hypoxic respiratory failure in the setting of COPD exacerbation that will require administration of supplemental oxygen, IV steroids, bronchodilator therapy, and close monitoring of respiratory status. Quality Stroke Does the patient have a stroke diagnosis?: No VTE Prior VTE?: No VTE Risk Level:: Medical - moderate - high VTE Device Contraindication: Treatment Not Indicated VTE Drug Contraindication: N/A - Med Ordered
[2024-10-16] MEDS: Albuterol/Iprat 2.5/0.5MG 3 ML AMPUL.NEB INHALE ×3 (11:25→19:35)
--- NOTE | 2024-10-16 11:52 | PHA.MEDREC ---
Addendum entered by Suellen Tierney RPh 10/16/24 12:10: Reviewed by [facility] Original Note: Pharmacy Consult ? Medication Reconciliation Pharmacy has completed the medication reconciliation. Spoke with pt and she has on hand her Albuterol inhaler; pt confirming she takes 2 puffs Q4H PRN SOB, Symbicort 80-4.5mcg; confirming she takes 1 puff QD, Anoro Ellipta 62.5-25mcg; confirming 1 puff qd, Lidocaine 5% patches; 1 qd prn pain and Cyclobenzaprine 5mg tabs; 1 tab as needed for muscle spasms. Pt daughters were able at the bedside verifying these are what the pt takes and verifying the pt also takes Eliquis 5mg tabs 1 BID but did not bring in the bottle; the daughters confirmed the pt gets everything filled at [facility] on [address] I called [facility] and they confirmed the Albuterol has not been filled since 07/2023, the Eliquis or Cyclobenzaprine haven't been filled since 04/2023, Lidocaine patches haven't been filled since 04/2024, Anoro Ellipta has no claims at [facility] for over 2 +yrs and Symbicort was last filled 06/2024 for 30 days, written for 1 BID not 1 QD like pt confirmed.
[2024-10-16] MEDS: Nicotine 14 MG PATCH.TD24 TRANSDERMA (12:58)
[2024-10-16] MEDS: 0.9 % Sodium Chloride Flush 3 ML SYRINGE IVFLUSH (12:59)
[2024-10-16] MEDS: Apixaban 5 MG TABLET PO ×2 (13:01→20:06)
[2024-10-16] MEDS: Fluticasone/Vilanterol 100/25 BLST.W.DEV 1 PUFF INHALE (13:24)
[2024-10-16] MEDS: methylPREDNISolone Sod Succ 40 MG VIAL IVPUSH (20:06)
[2024-10-17] MEDS: 0.9 % Sodium Chloride Flush 3 ML SYRINGE IVFLUSH ×2 (00:36→08:12)
[2024-10-17] MEDS: Acetaminophen 325 MG TABLET 650 MG PO (00:38)
[2024-10-17] MEDS: guaiFEN/Codeine SF 200/20/10ML 10 ML LIQUID PO ×2 (01:20→10:15)
[2024-10-17 03:18] VITALS: BP 110/60; PULSE 86; RESP 18; TEMP 36.4; O2SAT 94
[2024-10-17 06:47] VITALS: BP 119/74; PULSE 75; RESP 16; TEMP 36.6; O2SAT 95
[2024-10-17] MEDS: Apixaban 5 MG TABLET PO (08:03)
[2024-10-17] MEDS: Azithromycin 500 MG in 0.9 % Sodium Chloride 250 ML 125 MG IV (08:03)
[2024-10-17] MEDS: methylPREDNISolone Sod Succ 40 MG VIAL IVPUSH (08:03)
[2024-10-17] MEDS: Nicotine 14 MG PATCH.TD24 TRANSDERMA ×2 (08:04→14:32)
[2024-10-17] MEDS: Lidocaine 4 % Patch ADH..PATCH 1 PATCH TRANSDERMA (08:12)
[2024-10-17 08:55] VITALS: PULSE 76; RESP 16
[2024-10-17] MEDS: Fluticasone/Vilanterol 100/25 BLST.W.DEV 1 PUFF INHALE (08:55)
[2024-10-17] MEDS: Albuterol/Iprat 2.5/0.5MG 3 ML AMPUL.NEB INHALE ×2 (08:55→11:42)
--- NOTE | 2024-10-17 09:27 | P.DS_ITS ---
DS: Providers Provider Date of Service: 10/17/24 Date of admission: 10/16/24 09:30 Date of discharge: 10/17/24 Primary care physician: Shiloh Sahu MD DS: Diagnosis Discharge Diagnosis (1) COPD exacerbation: Status: Acute (2) Acute hypoxic respiratory failure: Status: Acute DS: Summary Hospital Course Hospital Course: From the history and physical by the admitting hospitalist, ELVIRA Cox, : Pt is a 59-year-old female with a PMH significant for?COPD not on home O2, hx of DVT/PE on Eliquis, and active smoker of half a pack daily who presents to the ED with increased?SOB and chest tightness x10 days, worse this morning. Pt reports has been having increased SOB and chest tightness/pain associated with inspiration since last Thursday when the weather was very hot and muggy. Pt has been using her inhalers repeatedly with minimal effect. Symptoms have worsened in the past few days until this morning when pt woke up and was so short of breath that she could not even walk to her bathroom. Also complains of increased cough productive of clear to yellowish sputum. No measured fever. Denies chills. No nausea, vomiting, abdominal pain. In the ED pt with initial elevated HR of 93, satting as low as 89% on RA. Labs were grossly unremarkable. No leukocytosis. Stable H&H. No significant electrolyte abnormalities. Bicarb WNL. Serial troponins negative. Renal and hepatic function WNL. Tested negative for flu, COVID, RSV. CXR negative for acute findings. EKG demonstrated normal sinus rhythm nonspecific, slight ST depression V4 and V5. Pt was treated in the ED with Mag sulfate, Solu-Medrol, DuoNebs, and azithromycin. Pt is admitted to the hospital for treatment and further evaluation of acute hypoxic respiratory failure in the setting of COPD exacerbation. Of note, pt was originally going to be admitted under observation for COPD exacerbation not sufficiently alleviated by ED treatment; however, pt has subsequently become hypoxic and will be admitted to the hospital as a full admission. She was admitted to the medical-surgical unit. Hypoxia resolved and symptoms improved. She was discharged home on a prednisone taper and on azithromycin, and will follow up with her surgical services manager in 2 weeks. VNA services were arranged and she was referred for outpatient pulmonary rehabilitation. Time Attestation Discharge Coordination Time (in mins): 35 Quality: Safe Use of Opioids Does Pt have an Active Cancer Diagnosis on the Problem List?: No Quality: Stroke Does the patient have a stroke diagnosis?: No Physical Exam Vital Signs: Vital Signs: Last Vital Signs Temp 97.8 F 10/17/24 06:47 Pulse 76 10/17/24 08:55 Resp 16 10/17/24 08:55 BP 119/74 10/17/24 06:47 Pulse Ox 95 10/17/24 06:47 O2 Del Method Room Air 10/17/24 06:47 BMI result Body Mass Index 18.7 Gen: in no acute distress HEENT: sclera anicteric, moist mucus membranes Neck: supple Lungs: diminished Heart: regular rate and rhythm, no murmurs Abd: soft, non-tender, non-distended Ext: no edema Skin: warm/well-perfused Neuro: alert and oriented x3, no focal findings Psych: appropriate affect DS: Data Data Completed and Pending Completed studies during hospitalization [Text1]: Laboratory Results WBC 10.5 X10*3/uL (4.8-10.8) 10/16/24 07:06 RBC 4.81 X10*6/uL (4.20-5.50) 10/16/24 07:06 Hgb 14.5 g/dl (12.0-16.0) 10/16/24 07:06 Hct 42.7 % (37.0-47.0) 10/16/24 07:06 MCV 88.8 fL (80.0-98.0) 10/16/24 07:06 MCH 30.1 pg (27.0-33.0) 10/16/24 07:06 MCHC 34.0 g/dl (31.0-35.0) 10/16/24 07:06 RDW 13.8 % (11.0-16.0) 10/16/24 07:06 Plt Count 264 X10*3/uL (160-400) 10/16/24 07:06 MPV 7.9 fL (9.4-12.3) L 10/16/24 07:06 Immature Gran % (Auto) 0.4 % (0.0-0.4) 10/16/24 07:06 Neut % (Auto) 69.5 % (45-73) 10/16/24 07:06 Lymph % (Auto) 16.5 % (20-40) L 10/16/24 07:06 [place] % (Auto) 8.7 % (2-11) 10/16/24 07:06 Eos % (Auto) 4.4 % (0-4) H 10/16/24 07:06 Baso % (Auto) 0.5 % (0-2) 10/16/24 07:06 Lymph # (Auto) 1.7 X10*3/uL (1.2-4.9) 10/16/24 07:06 [place] # (Auto) 0.9 X10*3/uL (0.1-1.2) 10/16/24 07:06 Eos # (Auto) 0.5 X10*3/uL (0.0-0.4) H 10/16/24 07:06 Baso # (Auto) 0.1 X10*3/uL (0.0-0.2) 10/16/24 07:06 Abs Immat Gran (auto) 0.04 X10*3/uL (0.00-0.03) H 10/16/24 07:06 Absolute Neuts (auto) 7.3 x10*3/uL (2.0-8.3) 10/16/24 07:06 Absolute Nucleated RBC 0.000 X10*3/uL (0.0-0.012) 10/16/24 07:06 Nucleated RBC % (auto) 0.0 /100WBC (0.0-0.2) 10/16/24 07:06 Sodium 143 mmol/L (135-145) 10/16/24 07:06 Potassium 4.1 mmol/L (3.3-5.1) 10/16/24 07:06 Chloride 108 mmol/L (96-108) 10/16/24 07:06 Carbon Dioxide 24 mmol/L (22-29) 10/16/24 07:06 Anion Gap 15 (12-20) 10/16/24 07:06 BUN 12 mg/dL (9-16) 10/16/24 07:06 Creatinine 0.85 mg/dL (0.5-1.4) 10/16/24 07:06 Estim Creat Clear Calc 55.0 10/16/24 07:06 Estimated GFR > 60 10/16/24 07:06 Random Glucose 115 mg/dL (60-115) 10/16/24 07:06 Calcium 9.9 mg/dL (8.4-10.2) 10/16/24 07:06 Total Bilirubin 0.6 mg/dL (0.0-1.0) 10/16/24 07:06 AST 27 U/L (5-31) 10/16/24 07:06 ALT 14 U/L (0-31) 10/16/24 07:06 Alkaline Phosphatase 93 U/L (39-117) 10/16/24 07:06 Troponin I High Sens < 2.7 ng/L (<3.5-17.0) 10/16/24 08:30 B-Natriuretic Peptide < 10 pg/mL (<100) 10/16/24 07:06 Total Protein 7.6 g/dL (6.5-8.0) 10/16/24 07:06 Albumin 4.5 g/dL (3.5-5.0) 10/16/24 07:06 Influenza Type A (PCR) NEGATIVE (Negative) 10/16/24 07:06 Influenza Type B (PCR) NEGATIVE (Negative) 10/16/24 07:06 RSV RNA Qual (PCR) NEGATIVE (Negative) 10/16/24 07:06 SARS-CoV-2 RNA (RT-PCR) NEGATIVE (Negative) 10/16/24 07:06 Discharge Plan Discharge Patient Disposition: Home Health Service Discharge Diagnosis: hypoxia due to COPD exacerbation Referrals: Physical Therapy - [facility] [place] [Outside] - 1 Week Referral Note: outpatient pulmonary rehab Aurelio Alaniz MD [Physician, Pulmonology] - 2 Weeks Shiloh Pozo MD [Primary Care Provider, Internal Medicine] - 1 Week Discharge Medications: New prednisone 10 mg tablet 10 mg PO DIRECTED Qty: 40 0RF Rx Instructions: 40 mg (4 tabs) daily x 4 days, then 30 mg (3 tabs) daily x 4 days, then 20 mg (2 tabs) daily x 4 days, then 10 mg (1 tab) daily x 4 days azithromycin 250 mg tablet 250 mg PO DAILY 4 Days Qty: 4 0RF (DME) cane Device See Rx Instructions .Route Qty: 1 0RF Rx Instructions: As directed Continued Anoro Ellipta 62.5-25 mcg/actuation blister with device 1 inh inhalation DAILY 30 Days Qty: 1 6RF lidocaine 5 % adhesive patch,medicated 1 patch topical DAILY Qty: 30 0RF Rx Instructions: leave on most painful area for up to 12 hrs budesonide-formoterol [Symbicort] 80-4.5 mcg/actuation HFA aerosol inhaler 1 inh inhalation DAILY Eliquis 5 mg Tablet 5 mg PO BID albuterol sulfate 90 mcg/actuation Hfa Aerosol Inhaler 2 puff INHALATION Q4H PRN (Reason: Shortness Of Breath Or Wheezing) (DME) pulse oximeter See Rx Instructions .Route .MEDSUPPLY Qty: 1 0RF Rx Instructions: As directed cyclobenzaprine 5 mg tablet 5 mg PO BEDTIME PRN (Reason: Muscle Spasm) Discharge Orders: Discharge Order (Routine); Ordered 10/17/24 Ordered By: Edie Mendoza Diet: Advance to usual diet Activity on Discharge: As tolerated Stand Alone Forms: Patient Portal Discharge page Print Language: Macanese Care Plan Goals: respiratory health Health Concerns: hypoxia due to COPD exacerbation Plan of Treatment: home with VNA services prednisone 10 mg tabs, taper as follows: 40 mg (4 tabs) daily x 4 days, then 30 mg (3 tabs) daily x 4 days, then 20 mg (2 tabs) daily x 4 days, then 10 mg (1 tab) daily x 4 days azithromycin 250 mg daily x 4 days follow up with Dr Alaniz from Pulmonology in 2 weeks Please follow up with your primary care doctor within 1 week. Return to the hospital if you experience recurrent or worsening symptoms. Assessment: See Discharge Summary.
[2024-10-17 09:59] VITALS: PULSE 79; PULSE 83; PULSE 92; O2SAT 91; O2SAT 92; O2SAT 94
[2024-10-17 11:46] VITALS: PULSE 76; RESP 16
--- NOTE | 2024-10-17 12:15 | MHC.CM.PN ---
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
[2024-10-17 12:51] VITALS: PULSE 101; O2SAT 91
--- NOTE | 2024-10-17 14:00 | P.F2F_ITS ---
Service Date Service Date: 10/17/24 Encounter Date of encounter: 10/17/24 Reasons for Services Signs and symptoms assessed: respiratory Reason for senior living: medication management, medication treatment and teach disease management MD Overseeing Care: Shiloh Sahu Homebound: Leaving the home is medically contraindicated at this time without the asist of a device and/or another person due th the listed conditions above and below. Reason homebound: shortness of breath with minimal effort Certification: Based on the above findings, I certify that this patient is confined to the home and needs intermittent senior living care, physical therapy and/or speech therapy, or continues to need occupational therapy. The patient is under my care, and I have initiated the establishment of the plan of care. The patient will be followed by a physician who will periodically review the plan of care. Time Spent With Patient Time: Total time managing care of this patient today ____ minutes.
== END 2024-10-17 14:42 | disposition home health service (06) ==
LOC: HO.ED 10:06 → HO.EDOVER 10:22 → HO.S3 10:36
PROVIDERS: Physician Assistant Medical; Admitting Provider Student in an Organized Health Care Education/Training Program; Emergency Provider Emergency Medicine; PCP Internal Medicine; Visit Provider Family Medicine
DX: J44.1 Chronic obstructive pulmonary disease with (acute) exacerbation (principal); J96.01 Acute respiratory failure with hypoxia; I26.99 Other pulmonary embolism without acute cor pulmonale; F17.200 Nicotine dependence, unspecified, uncomplicated; M54.50 Low back pain, unspecified; Z79.01 Long term (current) use of anticoagulants; Z79.899 Other long term (current) drug therapy; Z03.818 Encounter for observation for suspected exposure to other biological agents ruled out
CPT/HCPCS: 0241U; 36415; 71045; 80053; 83880; 84484; 85025; 93005; 94640; 96365; 96366; 96367; 96375; 96376; 97161; 99221; 99285; J0456; J2919; J3475

== ENCOUNTER → 2024-10-16 06:39 | Outpatient (BNV) | payer OTHER, SELFPAY | PROVIDERS: Admitting Provider Student in an Organized Health Care Education/Training Program; Emergency Provider Emergency Medicine; PCP Internal Medicine; Visit Provider Internal Medicine | DX: R06.02 Shortness of breath (principal) | CPT/HCPCS: 93010 ==

== ENCOUNTER → 2024-10-16 06:39 | Outpatient (BNV) | payer OTHER, SELFPAY | PROVIDERS: Admitting Provider Student in an Organized Health Care Education/Training Program; Emergency Provider Emergency Medicine; PCP Internal Medicine; Visit Provider Radiology Diagnostic Radiology | DX: J44.9 Chronic obstructive pulmonary disease, unspecified (principal) | CPT/HCPCS: 71045 ==

== ENCOUNTER → 2024-10-16 09:30 | Outpatient (BNV) | payer OTHER, SELFPAY | PROVIDERS: Admitting Provider Student in an Organized Health Care Education/Training Program; Emergency Provider Emergency Medicine; PCP Internal Medicine; Visit Provider Student in an Organized Health Care Education/Training Program | DX: J44.1 Chronic obstructive pulmonary disease with (acute) exacerbation (principal); J96.01 Acute respiratory failure with hypoxia | CPT/HCPCS: 99222; 99239; G0180 ==

== ENCOUNTER 2024-11-04 10:08 | Outpatient (AMB) | payer OTHER, SELFPAY ==
--- NOTE | 2024-11-04 10:31 | A.OFFPC_ITS ---
Vital Signs 11/04/24 10:33 Height 5 ft 3 in Weight 110 lb 8 oz BMI 19.6 BP 110/66 Blood Pressure Location Lt brachial Position Sitting Pulse 69 Pulse Source Pulse Oximeter Temp 97.3 F Temp Source Temporal Artery Scan Pulse Oximetry (%) 95 Oxygen Delivery Method Room Air Intake Visit Reasons: [facility] 10/17 COPD Intake Note: Patient is here for hospital discharge follow up. Patient was discharged from [facility] on 10/17/24. Microarray Specialist Required: No Baler Operator: Not Required per policy Accompanied by: Self / Same As Patient Allergies penicillin V Allergy (Intermediate, Verified 11/04/24 10:33) rash Tobacco use date assessed: 11/04/24 Dental Screening Dental Screen Date: 11/04/24 Did you have a dental visit in the last 12 months?: No Did you have a dental problem in the last 6 months where you did not have access to dental care?: No Was dental information given to patient?: No HPI HPI Comments History of Present Illness Details 59 y/o Female patient who presents to [facility] clinic today for HDF. Past Medical history significant for COPD not on home O2, hx of DVT/PE on Eliquis, and active smoker of half a pack daily. She was admitted at [facility] [place] on 10/16 - 10/17 for an evaluation and Treatment of acute hypoxic respiratory failure in the setting of COPD exacerbation. Tested negative for flu, COVID, RSV. CXR negative for acute findings. EKG demonstrated normal sinus rhythm nonspecific, slight ST depression V4 and V5. At the Hospital she was started on Spiriva and patient would like to continue on this because it works best for her. Pt has a pulmonology here at [facility]. [facility] Medical History Left shoulder pain Hearing loss DVT (deep venous thrombosis) (~09/03/21) Ankle pain Surgical History History of tonsillectomy History of tubal ligation Family History Father HIV (human immunodeficiency virus infection) Mother HIV (human immunodeficiency virus infection) Sister Aortic heart murmur Brother HIV (human immunodeficiency virus infection) Sister No problems noted. Maternal Aunt Breast cancer Social History (Updated 11/04/24 @ 10:41 by RAJAN Hightower) Household Members: Children Housing: Other Housing Other:: lives with daughter Are you a primary primary care md to a significant other at home: No Do you presently have visiting nurse or other home services: No Alcohol intake: current Alcohol intake frequency: 0-2 drinks per day Alcohol type: beer Patient Tobacco Use Status: Current everyday Tobacco user Tobacco use type: Cigarette Cigarette Packs Per Day: 0.25 Cigarettes Per Day: 1 e-Cigarette/Vaping Use: Never Used Second Hand Smoke Exposure: Yes Substance Use Type: Crack/Cocaine service: No Current occupational status: unemployed Current occupational exposures/hazards: No Cognitive needs: No Hearing needs: Yes Vision needs: Yes Questionnaire PHQ-9 Over the last 2 weeks, how often have you been bothered by any of the following problems? 1. Little interest or pleasure in doing things: not at all 2. Feeling down, depressed, or hopeless: not at all 3. Trouble falling or staying asleep, or sleeping too much: not at all 4. Feeling tired or having little energy: not at all 5. Poor appetite or overeating: not at all 6. Feeling bad about yourself - or that you are a failure or have let yourself or your family down: not at all 7. Trouble concentrating on things, such as reading the newspaper or watching television: not at all 8. Moving or speaking so slowly that other people could have noticed. Or the opposite - being so fidgety or restless that you have been moving around a lot more than usual: not at all 9. Thoughts that you would be better off or of hurting yourself in some way: not at all Total score: 0 Depression Screening Interpretation: Negative Depression Screening Done: Yes Source: Developed by Drs. Allen Martinez, Jamilah Rolle, Sanjay Shannon and colleagues, with an educational min from [employer]. Thrive Questionnaire Date Thrive assessed: 10/17/24 AUDIT C Alcohol Use Questionnaire (AUDIT-C) 1. How often do you have a drink containing alcohol?: Never Total Score: 0 LUIZ-7 AMB Questionnaire LUIZ-7 Date LUIZ - 7 assessed: 11/04/24 Feeling nervous, anxious, or on edge: 0 = Not at all Not being able to stop or control worryin = Not at all Worrying too much about different things: 0 = Not at all Trouble relaxin = Not at all Being so restless that it is hard to sit still: 0 = Not at all Becoming easily annoyed or irritable: 0 = Not at all Feeling afraid as if something awful might happen: 0 = Not at all Total LUIZ-7 score (0-4 normal; 5-9 mild; 10-14 moderate; 15-21 severe): 0 Source: Developed by Drs. Allen Martinez, Jamilah Rolle, Sanjay Shannon and colleagues, with an educational min from [employer]. Review of Systems Const All systems reviewed & are unremarkable except as noted in HPI and below Physical exam (Primary Care) Vital Signs: Last Vital Signs Temp 97.3 F 11/04/24 10:33 Pulse 69 11/04/24 10:33 BP 110/66 11/04/24 10:33 Pulse Ox 95 11/04/24 10:33 Oxygen Delivery Method Room Air 11/04/24 10:33 BMI result Body Mass Index 19.6 Tobacco/Smoking Status: Tobacco use Status Tobacco use date assessed 11/04/24 11/04/24 10:42 Patient Tobacco Use Status Current everyday Tobacco 11/04/24 10:41 Tobacco use type Cigarette 11/04/24 10:41 e-Cigarette/Vaping Use Never Used 11/04/24 10:41 PHQ-9: PHQ-9 Score PHQ-9: Total score 0 11/04/24 10:49 Depression Screening Interpretation: Negative Thrive Assessment: Date of Thrive Assessment Date Thrive assessed 10/17/24 11/04/24 10:32 Const General: no acute distress Nutritional Appearance: thin Orientation/consciousness: patient oriented x3 Resp Effort & Inspection: normal respiratory effort and able to speak in complete sentences Auscultation: clear to auscultation bilaterally, no crackles, no rales, no rhonchi and no wheezes Cardio Heart sounds: S1 normal heart sound present and S2 normal heart sound present Neuro General: patient oriented x3 Coding Level of Care Code Est Pt Level 4 (89365) Diagnoses COPD exacerbation J44.1 Time Spent (min) 20 Assessment & Plan Assessment & Plan (1) COPD exacerbation: Code(s): J44.1 - Chronic obstructive pulmonary disease with (acute) exacerbation Category: Medical Plan: Advised to F/U with Pulmonology. Refilled Spiriva for 30 days. Medications: Refilled tiotropium bromide (Spiriva with HandiHaler) puncture 1 cap using device; one dose = 2 inhalations 1 cap inhalation DAILY 30 ea 0RF
[2024-11-04 10:33] VITALS: BP 110/66; PULSE 69; TEMP 36.3; O2SAT 95; BMI 19.6
== END 2024-11-04 11:05 | disposition home or self-care (01) ==
LOC: HO.HMCH 10:09
PROVIDERS: PCP Internal Medicine; Visit Provider Nurse Practitioner Family
DX: J44.1 Chronic obstructive pulmonary disease with (acute) exacerbation (principal)

== ENCOUNTER → 2024-11-04 10:08 | Outpatient (BNVA) | payer OTHER, SELFPAY | PROVIDERS: PCP Internal Medicine; Visit Provider Nurse Practitioner Family | DX: J44.1 Chronic obstructive pulmonary disease with (acute) exacerbation (principal); Z13.31 Encounter for screening for depression; Z13.39 Encounter for screening examination for other mental health and behavioral disorders | CPT/HCPCS: 99212 ==

== ENCOUNTER 2024-11-22 13:27 | Outpatient (AMB) | payer OTHER, SELFPAY ==
[2024-11-22 13:46] VITALS: BP 122/62; PULSE 69; O2SAT 96
--- NOTE | 2024-11-22 13:46 | MHC.OFFVIS ---
Vital Signs 11/22/24 13:46 Height 5 ft 3 in Weight 113 lb BMI 20.0 BP 122/62 Blood Pressure Location Rt brachial Position Sitting Pulse 69 Pulse Source Pulse Oximeter Pulse Oximetry (%) 96 Oxygen Delivery Method Room Air Intake Visit Reasons: COPD Allergies penicillin V Allergy (Intermediate, Verified 11/22/24 13:52) rash HPI HPI COPD: Details: 59-year-old lady, recent 40+ pack-year smoker, followed for COPD. Patient had inhaled bronchodilators from multiple PET scan EBUS in currently ended up on Symbicort, Spiriva, Anoro, and albuterol MDI. She denies recent exacerbations. She was not able to complete her pulmonary function test. She did quit smoking and has been using nicotine patches. [facility] Medical History Left shoulder pain Hearing loss DVT (deep venous thrombosis) (~09/03/21) Ankle pain Surgical History History of tonsillectomy History of tubal ligation Family History Father HIV (human immunodeficiency virus infection) Mother HIV (human immunodeficiency virus infection) Sister Aortic heart murmur Brother HIV (human immunodeficiency virus infection) Sister No problems noted. Maternal Aunt Breast cancer Social History (Updated 11/04/24 @ 10:41 by RAJAN Hightower) Household Members: Children Housing: Other Housing Other:: lives with daughter Are you a primary manager of care to a significant other at home: No Do you presently have visiting nurse or other home services: No Alcohol intake: current Alcohol intake frequency: 0-2 drinks per day Alcohol type: beer Patient Tobacco Use Status: Current everyday Tobacco user Tobacco use type: Cigarette Cigarette Packs Per Day: 0.25 Cigarettes Per Day: 1 e-Cigarette/Vaping Use: Never Used Second Hand Smoke Exposure: Yes Substance Use Type: Crack/Cocaine service: No Current occupational status: unemployed Current occupational exposures/hazards: No Cognitive needs: No Hearing needs: Yes Vision needs: Yes Review of Systems Const Denies daytime sleepiness, Denies excessive sweating, Denies fatigue, Denies fever(s), Denies lethargy, Denies malaise, Denies night sweats, Denies snoring and Denies weight loss Eyes Denies blurry vision and Denies itchy eyes ENT Denies nasal congestion, Denies post nasal drip, Denies sinus pain, Denies sinus pressure and Denies other ( Thrush) Card Denies chest pain, Denies pedal edema, Denies dyspnea, Denies orthopnea and Denies paroxysmal nocturnal dyspnea Resp Denies cough, Denies hemoptysis, Denies excessive phlegm production, Denies dyspnea, Denies snoring and Denies wheezing GI Denies abdominal pain and Denies heartburn Musc Denies myalgias, Denies arthralgias and Denies joint swelling Skin/Breast Denies rash Neuro Denies memory loss and Denies seizure-like activity Psych Denies abnormal sleep pattern, Denies anxiety and Denies memory loss Endo Denies excessive sweating, Denies fatigue and Denies heat intolerance Mikael/Lymph Denies easy bruising Aller/Immun Denies itchy eyes, Denies seasonal rhinorrhea and Denies wheezing Physical Exam Vital Signs: Last Vital Signs Pulse 69 11/22/24 13:46 BP 122/62 11/22/24 13:46 Pulse Ox 96 11/22/24 13:46 Oxygen Delivery Method Room Air 11/22/24 13:46 BMI result Body Mass Index 20.0 Const General: no acute distress and alert Nutritional Appearance: not obese Orientation/consciousness: Other orientation findings ( oriented) HEENT Head: Yes atraumatic Eyes General: appearance normal, both eyes and all related structures Sclerae: sclerae normal EOM: EOMs intact bilaterally Neck Neck: Yes supple Lymphatic: no lymphadenopathy noted Resp Effort & Inspection: normal respiratory effort and no use of accessory muscles Auscultation: clear to auscultation bilaterally Cardio Rate: regular rate Rhythm: regular rhythm Heart sounds: no gallops, no murmurs and no rubs Skin General skin exam: other ( warm) Extrem General: No clubbing, No cyanosis and No edema Assessment & Plan Assessment & Plan (1) COPD (chronic obstructive pulmonary disease): Code(s): J44.9 - Chronic obstructive pulmonary disease, unspecified Category: Medical Plan: Multiple bronchodilators from multiple prescribers, will consolidate to Trelegy. Continue albuterol MDI. (2) Personal history of nicotine dependence: Code(s): Z87.891 - Personal history of nicotine dependence Category: Medical Plan: Did recently quit smoking, continue nicotine patches. Referred to lung cancer screening program. Coding Level of Care Code Est Pt Level 4 (88874) Diagnoses COPD (chronic obstructive pulmonary disease) J44.9 Personal history of nicotine dependence Z87.891
== END 2024-11-22 14:14 | disposition home or self-care (01) ==
LOC: HO.HPS 13:27
PROVIDERS: PCP Internal Medicine; Visit Provider Internal Medicine Pulmonary Disease
DX: J44.9 Chronic obstructive pulmonary disease, unspecified (principal); Z87.891 Personal history of nicotine dependence
CPT/HCPCS: 99214

== ENCOUNTER → 2024-11-22 13:27 | Outpatient (BNVA) | payer OTHER, SELFPAY | PROVIDERS: PCP Internal Medicine; Visit Provider Internal Medicine Pulmonary Disease | DX: J44.9 Chronic obstructive pulmonary disease, unspecified (principal); Z87.891 Personal history of nicotine dependence | CPT/HCPCS: 99212 ==

== ENCOUNTER 2025-01-02 09:59 | Outpatient (REF) | payer SELFPAY | END 2025-01-02 10:00 | disposition home or self-care (01) | LOC: HO.HAP 09:59 | PROVIDERS: PCP Internal Medicine; Visit Provider Internal Medicine | DX: Z46.1 Encounter for fitting and adjustment of hearing aid (principal); H90.3 Sensorineural hearing loss, bilateral | CPT/HCPCS: V5267 ==

== ENCOUNTER 2025-01-05 11:01 | Outpatient (REF) | payer OTHER, SELFPAY ==
--- NOTE | 2025-01-05 11:08 | PFT_ITS ---
Flows: FEV1: 62 % of predicted at 1.50 L FVC: 98 % of predicted at 3.01 L FEV1/FVC: 50 % Bronchodilator response: Present Volumes: Total lung capacity: 100 % of predicted at 4.93 L Residual volume: 132 % of predicted at 2.18 L Slow vital capacity: 83 % of predicted at 2.75 L Expiratory reserve volume: 125 % of predicted at 1.01 L Diffusion capacity: Moderately decreased Impression: Moderate obstructive ventilatory defect with positive bronchodilator response. Increased residual volume suggests air trapping. Decreased diffusion capacity suggests emphysema. MTDD
[2025-01-05 11:45] VITALS: PULSE 68; O2SAT 97
== END 2025-01-05 11:02 | disposition home or self-care (01) ==
LOC: HO.RESP 11:01
PROVIDERS: PCP Internal Medicine; Visit Provider Internal Medicine Pulmonary Disease
DX: J44.9 Chronic obstructive pulmonary disease, unspecified (principal)
CPT/HCPCS: 94010; 94640; 94727; 94729

== ENCOUNTER → 2025-01-05 11:08 | Outpatient (BNV) | payer OTHER, SELFPAY | PROVIDERS: PCP Internal Medicine; Visit Provider Internal Medicine Pulmonary Disease | DX: J98.4 Other disorders of lung (principal) | CPT/HCPCS: 94060; 94727; 94729 ==

== ENCOUNTER 2025-01-23 23:13 | Emergency (ER) | payer OTHER, SELFPAY ==
--- NOTE | ~2025-01-23 | XR_ITS ---
CLINICAL HISTORY: sob CHEST X-RAY FRONTAL VIEW COMPARISON: 10/16/2024. FINDINGS: A single frontal view of the chest was performed. Cardiac size is within normal limits. Lungs are again noted to be mildly hyperinflated, compatible with COPD. There is an area of atelectasis within the left lower lung. No focal infiltrate or consolidation. No pleural effusion or pneumothorax. IMPRESSION: 1. An area of atelectasis is noted in the left lower lung. No focal infiltrate or pleural effusion. No pneumothorax. 2. Lungs are again noted to be mildly hyperinflated, compatible with COPD. This document has been electronically signed by: Mason Yun M.D. on 01/24/2025 01:55:33
[2025-01-23 23:24] VITALS: BP 120/96; BP 144/86; PULSE 84; PULSE 91; RESP 23; TEMP 36.8; O2SAT 100; O2SAT 99; BMI 23.9
--- NOTE | 2025-01-23 23:26 | ED_ITS ---
HPI - SOB/Dyspnea General Chief Complaint: Dyspnea Stated Complaint: sob Source: patient and EMS Mode of arrival: EMS Limitations: no limitations History of Present Illness ED Provider: Dr. Nohemy Hamilton HPI Narrative: Patient comes to the emergency room complaining of shortness of breath. Patient states that she was diagnosed with asthma a few days ago. However, per previous records, patient has been diagnosed with COPD before. Patient admits that she is still smoking. Related Data Home Medications ?Medication ?Instructions ?Recorded ?Confirmed cyclobenzaprine 5 mg tablet 5 mg PO BEDTIME PRN Muscle Spasm 09/30/24 10/16/24 albuterol sulfate 90 mcg/actuation 2 puff inhalation Q 4H PRN 10/16/24 10/16/24 aerosol inhaler Shortness Of Breath Or Wheez ing apixaban 5 mg tablet (Eliquis) 5 mg PO BID 10/16/24 Previous Rx's ?Medication ?Instructions ?Recorded pulse oximeter #1 ea 09/04/21 lidocaine 5 % topical patch 1 patch topical DAILY #30 ea 05/20/23 cane #1 ea 10/17/24 nicotine 14 mg/24 hr daily 14 mg transdermal DAILY #30 ea 11/22/24 transdermal patch fluticasone furoate 200 1 inh inhalation DAILY #1 ea 11/28/24 mcg-vilanterol 25 mcg/dose inhalation powder (Breo Ellipta) umeclidinium 62.5 mcg/actuation 1 inh inhalation DAILY #1 ea 11/28/24 blister powder for inhalation (Incruse Ellipta) prednisone 50 mg tablet 50 mg PO DAILY #5 tabs 01/24 Allergies Allergy/AdvReac Type Severity Reaction Status Date / Time penicillin V Allergy Intermediate rash Verified 01/23/25 23:30 Review of Systems 2 Review of Systems: Constitutional : No Weight loss, No Fever, No Chills, No Night Sweats, No Fatigue, No Malaise ENT/Mouth : No Hearing loss, No Ear Pain, No Nasal Congestion, No Sinus Pain, No Hoarseness, No sore throat, No Rhinorrhea, No Swallowing Difficulty Eyes: No Eye Pain, No Swelling, No Redness, No Foreign Body, No Discharge, No Vision Changes Cardiovascular : No Chest Pain, No SOB, No Dyspnea on Exertion, No Orthopnea, No Edema, No Palpitations Respiratory : Cough and wheezing, No Smoke Exposure, No Dyspnea Gastrointestinal : No Nausea, No Vomiting, No Diarrhea, No Constipation, No abdominal Pain, No Hematochezia, No Melena Genitourinary : no irregular bleeding, No Dysuria, No Urinary Frequency, No Hematuria, No Urinary Incontinence, No Urgency, No Flank Pain, No Urinary Flow Changes, No Hesitancy Musculoskeletal : No joint pain, No Myalgias, No Joint Swelling Skin : No Skin Lesions, No rash Neuro : No Weakness, No Numbness, No Paresthesias, No Loss of Consciousness, No Dizziness, No Headache Psych : No Anxiety/Panic, No Depression, No SI/HI/AH/VH, No Social Issues, Heme/Lymph: No Bruising, No Bleeding,No Lymphadenopathy Endocrine : No Polyuria, No Polydipsia, No Temperature Intolerance [facility] Past Medical History Medical History Pain of right heel DVT (deep venous thrombosis) (~09/03/21) Environmental allergies COPD exacerbation Chronic anticoagulation History of DVT (deep vein thrombosis) History of pulmonary embolism Nicotine dependence, cigarettes, uncomplicated Hearing loss Surgical History History of tonsillectomy History of tubal ligation Family History Family History Father HIV (human immunodeficiency virus infection) Mother HIV (human immunodeficiency virus infection) Sister Aortic heart murmur Brother HIV (human immunodeficiency virus infection) Sister No problems noted. Maternal Aunt Breast cancer Social History Social History (Updated 11/04/24 @ 10:41 by RAJAN Hightower) Household Members: Children Housing: Other Housing Other:: lives with daughter Are you a primary customer care coordinator to a significant other at home: No Do you presently have visiting nurse or other home services: No Alcohol intake: current Alcohol intake frequency: does not drink Alcohol type: beer Patient Tobacco Use Status: Current everyday Tobacco user Tobacco use type: Cigarette Cigarette Packs Per Day: 0.25 Cigarettes Per Day: 1 Smoked in Last 30 Days: Yes e-Cigarette/Vaping Use: Never Used Second Hand Smoke Exposure: Yes Use of substances other than those prescribed or required for medical reasons: No Substance Use Type: Crack/Cocaine Advance Directives: No Advance Directives Information Provided: Yes Do you have a plan to hurt others: No Plan Patient : No service: No Current occupational status: unemployed Current occupational exposures/hazards: No Cognitive needs: No Hearing needs: Yes Vision needs: Yes Physical Exam 2 Exam: Exam: Appearance: Alert. Oriented X3. No acute distress. Eyes: Pupils equal, round and reactive to light. ENT: Pharynx normal. Neck: Normal inspection. Neck supple. No lymph nodes noted. No crepitus CVS: Normal heart rate and rhythm. Pulses normal. Normal S1 and S2 Respiratory: Patient is speaking 2 word sentences, tachypneic, oxygen saturation in the low 90s Abdomen: Soft and nontender. No rigidity. No distention. Skin: Skin warm and dry. Normal skin color. Normal skin turgor. Extremities: No lower extremity edema. No Lacerations. No Rash Neuro: Oriented X 3. No motor deficit. No sensory deficit. Moving all extremities. No slurred speech. CN 2 through 12 grossly intact Psych: calm, cooperative, normal affect Vital Signs: Vital Signs: Last Vital Signs Temp 97.0 F 01/24/25 01:22 Pulse 84 01/24/25 01:22 Resp 24 H 01/24/25 01:22 BP 110/70 01/24/25 01:22 Pulse Ox 95 01/24/25 01:22 O2 Del Method Room Air 01/24/25 01:22 BMI result Body Mass Index 23.9 Course Course Course Narrative: According to EMS, patient already received a dose of Solu-Medrol, albuterol and nebulization treatments. Medications Administered Discontinued Medications Generic Name Dose Route Start Last Admin Trade Name Jose Armando PRN Reason Stop Dose Admin Azithromycin 500 mg 01/23/25 23:21 01/23/25 23:31 Azithromycin 500 Mg Tablet PO 01/23/25 23:22 500 mg ONCE ONE Administration Ceftriaxone Sodium 1 gm 01/23/25 23:21 01/23/25 23:31 Ceftriaxone Sodium 1 Gm Vial IVPUSH 01/23/25 23:22 1 gm ONCE ONE Administration Albuterol Sulfate 7.5 mg/ 0 mg 01/23/25 23:29 01/23/25 23:33 Albuterol/Ipratropium 3 ml INHALE 01/23/25 23:30 10 each ONCE ONE Administration Magnesium Sulfate 2 gm in 50 mls @ 150 mls/hr 01/23/25 23:21 01/23/25 23:52 Magnesium Sulfate/H2o IV 01/23/25 23:40 Infused ONCE ONE Infusion Medical Decision Making Medical Decision Making [facility] [place] Narrative: Patient's lowest oxygen saturation was 91% on room air. Here patient is awake, alert. 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 Admission/Observation Consideration of admission/observation: Escalation of care including admission/observation considered Lab Data [facility] [place] Lab Attestation statement: I reviewed the patient's lab results. 01/23/25 23:30 01/24/25 00:19 Labs: Lab Results 01/23/25 01/23/25 01/23/25 Range/Units 23:26 23:30 23:38 WBC 11.2 H (4.8-10.8) X10*3/uL RBC 4.97 (4.20-5.50) X10*6/uL Hgb 14.7 (12.0-16.0) g/dl Hct 44.6 (37.0-47.0) % MCV 89.7 (80.0-98.0) fL MCH 29.6 (27.0-33.0) pg MCHC 33.0 (31.0-35.0) g/dl RDW 13.7 (11.0-16.0) % Plt Count 248 (160-400) X10*3/uL MPV 8.2 L (9.4-12.3) fL Immature Gran % (Auto) 0.2 (0.0-0.4) % Neut % (Auto) 49.2 (45-73) % Lymph % (Auto) 31.3 (20-40) % [place] % (Auto) 8.9 (2-11) % Eos % (Auto) 9.9 H (0-4) % Baso % (Auto) 0.5 (0-2) % Lymph # (Auto) 3.5 (1.2-4.9) X10*3/uL [place] # (Auto) 1.0 (0.1-1.2) X10*3/uL Eos # (Auto) 1.1 H (0.0-0.4) X10*3/uL Baso # (Auto) 0.1 (0.0-0.2) X10*3/uL Abs Immat Gran (auto) 0.02 (0.00-0.03) X10*3/uL Absolute Neuts (auto) 5.5 (2.0-8.3) x10*3/uL Absolute Nucleated RBC 0.000 (0.0-0.012) X10*3/uL Nucleated RBC % (auto) 0.0 (0.0-0.2) /100WBC VBG pH 7.44 H (7.32-7.43) VBG pCO2 28 mmHg VBG pO2 68 mmHg VBG HCO3 19 L (22-26) mmol/L VBG O2 Saturation 92.0 % VBG Base Excess -3.2 mmol/L Sodium (135-145) mmol/L Potassium (3.3-5.1) mmol/L Chloride (96-108) mmol/L Carbon Dioxide (22-29) mmol/L Anion Gap (12-20) BUN (9-16) mg/dL Creatinine (0.5-1.4) mg/dL Estim Creat Clear Calc Estimated GFR Random Glucose (60-115) mg/dL Lactic Acid (0.5-2.0) mmol/L Calcium (8.4-10.2) mg/dL Total Bilirubin (0.0-1.0) mg/dL AST (5-31) U/L ALT (0-31) U/L Alkaline Phosphatase (39-117) U/L Total Protein (6.5-8.0) g/dL Albumin (3.5-5.0) g/dL Influenza Type A (PCR) NEGATIVE (Negative) Influenza Type B (PCR) NEGATIVE (Negative) RSV RNA Qual (PCR) NEGATIVE (Negative) SARS-CoV-2 RNA (RT-PCR) NEGATIVE (Negative) 01/24/25 Range/Units 00:19 WBC (4.8-10.8) X10*3/uL RBC (4.20-5.50) X10*6/uL Hgb (12.0-16.0) g/dl Hct (37.0-47.0) % MCV (80.0-98.0) fL MCH (27.0-33.0) pg MCHC (31.0-35.0) g/dl RDW (11.0-16.0) % Plt Count (160-400) X10*3/uL MPV (9.4-12.3) fL Immature Gran % (Auto) (0.0-0.4) % Neut % (Auto) (45-73) % Lymph % (Auto) (20-40) % [place] % (Auto) (2-11) % Eos % (Auto) (0-4) % Baso % (Auto) (0-2) % Lymph # (Auto) (1.2-4.9) X10*3/uL [place] # (Auto) (0.1-1.2) X10*3/uL Eos # (Auto) (0.0-0.4) X10*3/uL Baso # (Auto) (0.0-0.2) X10*3/uL Abs Immat Gran (auto) (0.00-0.03) X10*3/uL Absolute Neuts (auto) (2.0-8.3) x10*3/uL Absolute Nucleated RBC (0.0-0.012) X10*3/uL Nucleated RBC % (auto) (0.0-0.2) /100WBC VBG pH (7.32-7.43) VBG pCO2 mmHg VBG pO2 mmHg VBG HCO3 (22-26) mmol/L VBG O2 Saturation % VBG Base Excess mmol/L Sodium 143 (135-145) mmol/L Potassium 4.2 (3.3-5.1) mmol/L Chloride 109 H (96-108) mmol/L Carbon Dioxide 21 L (22-29) mmol/L Anion Gap 17 (12-20) BUN 15 (9-16) mg/dL Creatinine 0.81 (0.5-1.4) mg/dL Estim Creat Clear Calc 61.8 Estimated GFR > 60 Random Glucose 178 H (60-115) mg/dL Lactic Acid 2.5 H* (0.5-2.0) mmol/L Calcium 9.5 (8.4-10.2) mg/dL Total Bilirubin 0.3 (0.0-1.0) mg/dL AST 24 (5-31) U/L ALT 10 (0-31) U/L Alkaline Phosphatase 86 (39-117) U/L Total Protein 7.3 (6.5-8.0) g/dL Albumin 4.5 (3.5-5.0) g/dL Influenza Type A (PCR) (Negative) Influenza Type B (PCR) (Negative) RSV RNA Qual (PCR) (Negative) SARS-CoV-2 RNA (RT-PCR) (Negative) Independent Interpretation I performed an independent interpretation of an: EKG Discharge Plan Discharge Clinical Impression: Chronic lung disease Patient Disposition: Home, Self-Care Additional Instructions: Please follow-up with your primary care physician tomorrow. If you have any worsening or new symptoms, please return to the emergency room or call 911 Prescriptions: New prednisone 50 mg tablet 50 mg PO DAILY Qty: 5 0RF No Action Incruse Ellipta 62.5 mcg/actuation blister with device 1 inh inhalation DAILY Qty: 1 6RF fluticasone furoate-vilanterol [Breo Ellipta] 200-25 mcg/dose blister with device 1 inh inhalation DAILY Qty: 1 6RF lidocaine 5 % adhesive patch,medicated 1 patch topical DAILY Qty: 30 0RF Rx Instructions: leave on most painful area for up to 12 hrs Eliquis 5 mg Tablet 5 mg PO BID albuterol sulfate 90 mcg/actuation Hfa Aerosol Inhaler 2 puff INHALATION Q4H PRN (Reason: Shortness Of Breath Or Wheezing) (DME) cane Device See Rx Instructions .Route Qty: 1 0RF Rx Instructions: As directed (DME) pulse oximeter See Rx Instructions .Route .MEDSUPPLY Qty: 1 0RF Rx Instructions: As directed cyclobenzaprine 5 mg tablet 5 mg PO BEDTIME PRN (Reason: Muscle Spasm) nicotine 14 mg/24 hr patch 24 hour 14 mg transdermal DAILY Qty: 30 3RF Print Language: Vietnamese
[2025-01-23 23:29] VITALS: PULSE 92; RESP 24; O2SAT 92
[2025-01-23] MEDS: Magnesium Sulfate/H2O 2 GM/50 ML PIGGYBACK IV (23:31)
[2025-01-23] MEDS: Albuterol Sulfate 7.5 MG, Albuterol/Iprat 2.5/0.5MG 3 ML 3 ML INHALE (23:33)
[2025-01-23 23:36] LABS: MANUAL DIFF FLAG NO
[2025-01-23 23:38] LABS: Hematocrit 44.6 % (37.0-47.0); Hemoglobin 14.7 g/dl (12.0-16.0); Imm Gran Abs Auto 0.02 X10*3/uL (0.00-0.03); Imm Gran Pct Auto 0.2 % (0.0-0.4); Lymphocytes Absolute Auto 3.5 X10*3/uL (1.2-4.9); Mean Corpuscular HGB Conc 33.0 g/dl (31.0-35.0); Mean Corpuscular Hemoglobin 29.6 pg (27.0-33.0); Mean Corpuscular Volume 89.7 fL (80.0-98.0); NRBC Abs Auto 0.000 X10*3/uL (0.0-0.012); NRBC Pct Auto 0.0 /100WBC (0.0-0.2); Platelet Count 248 X10*3/uL (160-400); Red Blood Count 4.97 X10*6/uL (4.20-5.50); White Blood Count 11.2 X10*3/uL (4.8-10.8)
[2025-01-23 23:41] LABS: VBG HCO3 19 mmol/L (22-26); VBG O2 % Saturation 92.0 %
--- NOTE | 2025-01-23 23:41 | PC.NURSE ---
provider into assess pt, second iv place, labs collected and sent, respiratory at the bedside, breathing treatment completed. Waiting chest x-ray.
[2025-01-23 23:42] LABS: Venous Blood Gas Refer to POC result
[2025-01-24 00:15] LABS: Resp Syncy Virus RNA Qual PCR NEGATIVE (Negative); SARS COV2 PCR INHOUSE NEGATIVE (Negative)
--- NOTE | 2025-01-24 00:41 | PC.NURSE ---
pt oxygen decrease to 2 liters, respiratory symptoms have improved.
[2025-01-24 00:46] LABS: Alanine Aminotransferase 10 U/L (0-31); Albumin Level 4.5 g/dL (3.5-5.0); Alkaline Phosphatase 86 U/L (39-117); Anion Gap 17 (12-20); Aspartate Amino Transferase 24 U/L (5-31); Blood Urea Nitrogen 15 mg/dL (9-16); Calcium 9.5 mg/dL (8.4-10.2); Carbon Dioxide 21 mmol/L (22-29); Chloride 109 mmol/L (96-108); Creatinine Clr Calc Pharmacy 61.8; Estimated Glomerular Filt Rate > 60; Potassium 4.2 mmol/L (3.3-5.1); Sodium 143 mmol/L (135-145); Total Protein 7.3 g/dL (6.5-8.0)
--- NOTE | 2025-01-24 01:20 | PC.NURSE ---
pt oob for walk test, room air between -, Dr. Hamilton aware.
[2025-01-24 01:22] VITALS: BP 110/70; PULSE 84; RESP 24; TEMP 36.1; O2SAT 95
[2025-01-24 01:52] VITALS: BP 110/70; PULSE 84; RESP 24; TEMP 36.1; O2SAT 95
--- NOTE | 2025-01-24 02:09 | PC.NURSE ---
Iv removed discharge instructions given and reviewed, pt verbalized understanding. no sign of distress
[2025-01-24 02:25] LABS: Reflex Lactate? Lactic Acid Added
== END 2025-01-24 02:10 | disposition home or self-care (01) ==
PROVIDERS: Emergency Provider Emergency Medicine; PCP Internal Medicine
DX: J44.89 Other specified chronic obstructive pulmonary disease (principal); J45.50 Severe persistent asthma, uncomplicated; F17.210 Nicotine dependence, cigarettes, uncomplicated; Z86.711 Personal history of pulmonary embolism; Z86.718 Personal history of other venous thrombosis and embolism; Z91.09 Other allergy status, other than to drugs and biological substances; Z88.0 Allergy status to penicillin
CPT/HCPCS: 71045; 80053; 82803; 83605; 85025; 87040; 87637; 94640; 96365; 96375; 99212; 99284; 99285; J0696; J3475

== ENCOUNTER → 2025-01-24 00:01 | Outpatient (BNV) | payer OTHER, SELFPAY | PROVIDERS: Emergency Provider Emergency Medicine; PCP Internal Medicine; Visit Provider Radiology Diagnostic Radiology | DX: J98.11 Atelectasis (principal) | CPT/HCPCS: 71045 ==

== ENCOUNTER 2025-01-24 14:53 | Outpatient (AMB) | payer OTHER, SELFPAY ==
[2025-01-24 14:55] VITALS: BP 114/64; PULSE 104; O2SAT 92; BMI 19.5
--- NOTE | 2025-01-24 14:55 | A.OFFVIS_ITS ---
Vital Signs 01/24/25 14:55 Height 5 ft 3 in Weight 110 lb BMI 19.5 BP 114/64 Blood Pressure Location Rt brachial Position Sitting Pulse 104 H Pulse Source Pulse Oximeter Pulse Oximetry (%) 92 Oxygen Delivery Method Room Air Intake Visit Reasons: COPD/PFT Follow Up Allergies penicillin V Allergy (Intermediate, Verified 01/24/25 15:02) rash HPI HPI COPD/PFT Follow Up: Details: 59-year-old lady, recent 40+ pack-year smoker, followed for COPD. After the last office visit patient has been using Breo, Incruse, and albuterol MDI with suboptimal control of her symptoms and with breakthrough symptoms requiring ER visit for additional prednisone. She states that she can not tolerate Incruse well secondary to burning sensation in her chest and worsening dyspnea with it. [facility] Medical History Pain of right heel DVT (deep venous thrombosis) (~09/03/21) Environmental allergies COPD exacerbation Chronic anticoagulation History of DVT (deep vein thrombosis) History of pulmonary embolism Nicotine dependence, cigarettes, uncomplicated Hearing loss Surgical History History of tonsillectomy History of tubal ligation Family History Father HIV (human immunodeficiency virus infection) Mother HIV (human immunodeficiency virus infection) Sister Aortic heart murmur Brother HIV (human immunodeficiency virus infection) Sister No problems noted. Maternal Aunt Breast cancer Social History (Updated 11/04/24 @ 10:41 by RAJAN Hightower) Household Members: Children Housing: Other Housing Other:: lives with daughter Are you a primary physician primary care sports medicine to a significant other at home: No Do you presently have visiting nurse or other home services: No Alcohol intake: current Alcohol intake frequency: does not drink Alcohol type: beer Patient Tobacco Use Status: Current everyday Tobacco user Tobacco use type: Cigarette Cigarette Packs Per Day: 0.25 Cigarettes Per Day: 1 e-Cigarette/Vaping Use: Never Used Second Hand Smoke Exposure: Yes Substance Use Type: Crack/Cocaine service: No Current occupational status: unemployed Current occupational exposures/hazards: No Cognitive needs: No Hearing needs: Yes Vision needs: Yes Review of Systems Const Denies daytime sleepiness, Denies excessive sweating, Denies fatigue, Denies fever(s), Denies lethargy, Denies malaise, Denies night sweats, Denies snoring and Denies weight loss Eyes Denies blurry vision and Denies itchy eyes ENT Denies nasal congestion, Denies post nasal drip, Denies sinus pain, Denies sinus pressure and Denies other ( Thrush) Card Denies chest pain, Denies pedal edema, Denies dyspnea, Denies orthopnea and Denies paroxysmal nocturnal dyspnea Resp Denies cough, Denies hemoptysis, Denies excessive phlegm production, Denies dyspnea, Denies snoring and Denies wheezing GI Denies abdominal pain and Denies heartburn Musc Denies myalgias, Denies arthralgias and Denies joint swelling Skin/Breast Denies rash Neuro Denies memory loss and Denies seizure-like activity Psych Denies abnormal sleep pattern, Denies anxiety and Denies memory loss Endo Denies excessive sweating, Denies fatigue and Denies heat intolerance Mikael/Lymph Denies easy bruising Aller/Immun Denies itchy eyes, Denies seasonal rhinorrhea and Denies wheezing Physical Exam Vital Signs: Last Vital Signs Pulse 104 H 01/24/25 14:55 BP 114/64 01/24/25 14:55 Pulse Ox 92 01/24/25 14:55 Oxygen Delivery Method Room Air 01/24/25 14:55 BMI result Body Mass Index 19.5 Const General: no acute distress and alert Nutritional Appearance: not obese Orientation/consciousness: Other orientation findings ( oriented) HEENT Head: Yes atraumatic Eyes General: appearance normal, both eyes and all related structures Sclerae: sclerae normal EOM: EOMs intact bilaterally Neck Neck: Yes supple Lymphatic: no lymphadenopathy noted Resp Effort & Inspection: normal respiratory effort and no use of accessory muscles Auscultation: clear to auscultation bilaterally Cardio Rate: regular rate Rhythm: regular rhythm Heart sounds: no gallops, no murmurs and no rubs Skin General skin exam: other ( warm) Extrem General: No clubbing, No cyanosis and No edema Assessment & Plan Assessment & Plan (1) Asthma-COPD overlap syndrome: Code(s): J44.89 - Other specified chronic obstructive pulmonary disease Category: Medical Plan: Suboptimal control on Breo and Incruse with albuterol MDI. Unable to tolerate Incruse. Will request Fasenra approval. (2) Environmental allergies: Code(s): Z91.09 - Other allergy status, other than to drugs and biological substances Category: Medical Plan: Suboptimally controlled, expect to improve on Fasenra. Coding Level of Care Code Est Pt Level 4 (83443) Diagnoses Asthma-COPD overlap syndrome J44.89 Environmental allergies Z91.09
== END 2025-01-24 15:17 | disposition home or self-care (01) ==
LOC: HO.HPS 14:53
PROVIDERS: PCP Internal Medicine; Visit Provider Internal Medicine Pulmonary Disease
DX: J44.89 Other specified chronic obstructive pulmonary disease (principal); Z91.09 Other allergy status, other than to drugs and biological substances
CPT/HCPCS: 99214

== ENCOUNTER 2025-01-26 14:57 | Outpatient (AMB) | payer OTHER, SELFPAY ==
[2025-01-26 15:04] VITALS: BP 136/68; PULSE 79; RESP 18; TEMP 36.3; O2SAT 94; BMI 19.9
--- NOTE | 2025-01-26 15:04 | A.OFFPC_ITS ---
Vital Signs 01/26/25 15:04 Height 5 ft 3 in Weight 112 lb 8 oz BMI 19.9 BP 136/68 Blood Pressure Location Lt brachial Position Sitting Respiration 18 Pulse 79 Pulse Source Pulse Oximeter Temp 97.3 F Temp Source Temporal Artery Scan Pulse Oximetry (%) 94 Oxygen Delivery Method Room Air Intake Visit Reasons: Follow Up Medical Physiologist Required: No Accompanied by: Self / Same As Patient Allergies penicillin V Allergy (Intermediate, Verified 01/26/25 15:52) rash Medication List - Last Reconciled 01/26/25 by Shiloh Sahu MD albuterol sulfate 90 mcg/actuation 2 puffs inhalation Q4H PRN apixaban (Eliquis) 5 mg PO BID cane As directed fluticasone furoate-vilanterol 200-25 mcg/dose (Breo Ellipta) 1 inh inhalation DAILY prednisone 50 mg PO DAILY [pulse oximeter As directed] Tobacco use date assessed: 01/26/25 Dental Screening Dental Screen Date: 01/26/25 Did you have a dental visit in the last 12 months?: No Did you have a dental problem in the last 6 months where you did not have access to dental care?: No Was dental information given to patient?: No HPI HPI Comments History of Present Illness Details The patient is a 59-year-old female presenting with respiratory conditions, specifically COPD and asthma. She experienced an asthma attack triggered by exposure to a strong scent in a confined space, which was not compounded by her COPD. The patient reports a history of COPD changes noted on a recent x-ray, and she has been under the care of a zinc chloride operator. Her medication regimen was adjusted by discontinuing an inhaler that caused chest pain and replacing it with another treatment. She has a history of elevated eosinophils and white blood cells, attributed to allergies and inflammation, respectively. The patient has not smoked for four months, which is a significant lifestyle change. [facility] Medical History Pain of right heel DVT (deep venous thrombosis) (~09/03/21) Environmental allergies COPD exacerbation Chronic anticoagulation History of DVT (deep vein thrombosis) History of pulmonary embolism Nicotine dependence, cigarettes, uncomplicated Hearing loss Surgical History History of tonsillectomy History of tubal ligation Family History Father HIV (human immunodeficiency virus infection) Mother HIV (human immunodeficiency virus infection) Sister Aortic heart murmur Brother HIV (human immunodeficiency virus infection) Sister No problems noted. Maternal Aunt Breast cancer Social History Household Members: Children Housing: Other Housing Other:: lives with daughter Are you a primary daycare assistant to a significant other at home: No Do you presently have visiting nurse or other home services: No Alcohol intake: current Alcohol intake frequency: does not drink Alcohol type: beer Patient Tobacco Use Status: Current everyday Tobacco user Tobacco use type: Cigarette Cigarette Packs Per Day: 0.25 Cigarettes Per Day: 1 e-Cigarette/Vaping Use: Never Used Second Hand Smoke Exposure: Yes Substance Use Type: Crack/Cocaine service: No Current occupational status: unemployed Current occupational exposures/hazards: No Cognitive needs: No Hearing needs: Yes Vision needs: Yes Questionnaire Thrive Questionnaire Date Thrive assessed: 10/17/24 LUIZ-7 AMB Questionnaire LUIZ-7 Date LUIZ - 7 assessed: 11/04/24 Source: Developed by Drs. Allen Martinez, Jamilah Rolle, Sanjay Shannon and colleagues, with an educational min from [employer] Review of Systems Const All systems reviewed & are unremarkable except as noted in HPI and below Card Denies chest pain at rest, Denies chest pain with activity, Denies edema, Denies irregular heart rhythm, Denies claudication, Denies dyspnea, Denies dyspnea on exertion, Denies orthopnea, Denies paroxysmal nocturnal dyspnea and Denies slow heart rate Resp Denies cough, Denies dyspnea and Denies dyspnea on exertion Musc Denies abnormal gait, Denies atrophy, Denies deformity and Denies limited range of motion Skin/Breast Denies bleeding lesions, Denies changing lesions and Denies rash Neuro Denies abnormal gait and Denies lack of coordination Physical exam (Primary Care) Vital Signs: Last Vital Signs Temp 97.3 F 01/26/25 15:04 Pulse 79 01/26/25 15:04 Resp 18 01/26/25 15:04 BP 136/68 01/26/25 15:04 Pulse Ox 94 01/26/25 15:04 Oxygen Delivery Method Room Air 01/26/25 15:04 BMI result Body Mass Index 19.9 Tobacco/Smoking Status: Tobacco use Status Tobacco use date assessed 01/26/25 01/26/25 15:06 Patient Tobacco Use Status Current everyday Tobacco 01/26/25 15:06 Tobacco use type Cigarette 01/26/25 15:06 e-Cigarette/Vaping Use Never Used 01/26/25 15:06 Thrive Assessment: Date of Thrive Assessment Date Thrive assessed 10/17/24 01/26/25 15:06 Resp Effort & Inspection: normal respiratory effort Auscultation: clear to auscultation bilaterally Cardio Jugular venous distension: no JVD Rate: regular rate Rhythm: regular rhythm Heart sounds: S1 normal heart sound present and S2 normal heart sound present Extrem General: Yes full ROM Coding Level of Care Code Est Pt Level 3 (90643) Diagnoses Asthma-COPD overlap syndrome J44.89 DVT (deep venous thrombosis) I82.409 Time Spent (min) 19 Assessment & Plan Assessment & Plan (1) Asthma-COPD overlap syndrome: Code(s): J44.89 - Other specified chronic obstructive pulmonary disease Category: Medical (2) DVT (deep venous thrombosis): Onset Date: ~09/03/21 Comment: Pulmonary perfusion imaging done and was found that patient has 3 small subsegmental perfusion defects bilaterally. There may be a small left pleural effusion. Findings are consistent with low/intermediate probability for pulmonary embolus. She was started on Eliquis. 08/2021 Code(s): I82.409 - Acute embolism and thrombosis of unspecified deep veins of unspecified lower extremity Category: Medical Plan Plan Patient was informed and verbally consented to the use of an ambient scribe for clinic note documentation during this visit. 1. Asthma/Chronic Obstructive Pulmonary Disease (Copd) overlap syndrome The patient will continue follow-up with the zinc chloride operator for management of COPD. The current medication regimen includes the use of Breo and Venturis, with the discontinuation of Incruz due to adverse effects. The patient experienced an asthma attack triggered by a strong scent, and the management plan includes the use of a rescue inhaler. The patient is advised to avoid known triggers and continue monitoring symptoms.
== END 2025-01-26 16:03 | disposition home or self-care (01) ==
LOC: HO.HMCH 14:57
PROVIDERS: PCP Internal Medicine; Visit Provider Internal Medicine
DX: J44.89 Other specified chronic obstructive pulmonary disease (principal); I82.409 Acute embolism and thrombosis of unspecified deep veins of unspecified lower extremity

== ENCOUNTER → 2025-01-26 14:57 | Outpatient (BNVA) | payer OTHER, SELFPAY | PROVIDERS: PCP Internal Medicine; Visit Provider Internal Medicine | DX: J44.89 Other specified chronic obstructive pulmonary disease (principal); I82.409 Acute embolism and thrombosis of unspecified deep veins of unspecified lower extremity | CPT/HCPCS: 99212 ==

== ENCOUNTER 2025-01-27 10:44 | Outpatient (REF) | payer OTHER, SELFPAY ==
--- NOTE | ~2025-01-27 | CT_ITS ---
EXAMINATION: CT LOW-DOSE SCREENING CHEST WITHOUT CONTRAST CLINICAL INFORMATION: 59-year-old female, 44 pack year smoker, lung cancer screening. COMPARISON: CT chest 10/09/2023. TECHNIQUE: Multidetector volumetric CT imaging of the chest is performed on a Siemens SOMATOM Definition scanner without contrast using low dose technique. Additional 2D coronal and sagittal reformatted images and axial 3D maximum intensity projection (MIP) images are generated on the CT workstation. This CT examination was performed using dose optimization techniques as appropriate, variously including the following: *Automated exposure control *Adjustment of mA and/or kV according to patient size (this includes techniques or standardized protocols for targeted exams where dose is matched to indication/reason for exam; i.e. extremities or head) *Use of iterative reconstruction technique FINDINGS: PULMONARY NODULES: 3 mm nodule medial right upper lobe with small pleural tag, most likely an intrapulmonary lymph node (series 5, image 50), unchanged. 2 mm calcified granuloma lateral right lower lobe, (series 5, image 1:15), unchanged. 2 mm nodule anterior left upper lobe (series 5, image 77), unchanged. Left upper lobe 3 mm nodular focus of small airway mucous plugging (series 6, image 81). No new or enlarging nodules. LUNGS: There is mild to moderate centrilobular and paraseptal emphysema, with upper lobe predominance. There is mild diffuse small airway thickening in keeping with chronic proctitis. No consolidations or abnormal groundglass opacities. Mild scarring in the lingula and bilateral medial lower lobes. No effusion or pneumothorax. MEDIASTINUM: Normal thyroid. No abnormal lymph nodes or masses. Aorta is mildly calcified, however normal in caliber and course. There is no aneurysm. Main pulmonary artery is normal in size. Heart size is normal. There is no pericardial effusion. There is no esophageal abnormality. CORONARY ARTERY CALCIFICATION: None visualized on this study. CHEST WALL/AXILLA: No abnormal lymph nodes or masses. UPPER ABDOMEN: Included portions of the solid organs in the upper abdomen unremarkable on noncontrast imaging. OSSEOUS STRUCTURES: No suspicious or blastic bone lesions. Mild spinal degenerative changes are present. CT/CT lung screening IMPRESSION: 1. A few tiny scattered pulmonary nodules measuring up to 3 mm which are stable and unchanged. No new or enlarging pulmonary nodule. 2. Mild to moderate paraseptal and centrilobular emphysema with upper lobe predominance. 3. Mild small airway thickening in keeping with chronic bronchitis. ASSESSMENT: 1. Lung-RADS Category 2: Benign appearance or behavior of nodules. 2. Lung-RADS Category S: None. RECOMMENDATION: Continued routine annual low-dose CT lung screening in 1 year is recommended. An order for CT CHEST LOW DOSE CANCER SCREENING ([id number]) can be placed. Electronically signed by: Tone Tapia MD 01/27/2025 11:47 AM EDT
== END 2025-01-27 10:45 | disposition home or self-care (01) ==
LOC: HO.CT 10:44
PROVIDERS: PCP Internal Medicine; Visit Provider Physician Assistant Medical
DX: Z12.2 Encounter for screening for malignant neoplasm of respiratory organs (principal); F17.210 Nicotine dependence, cigarettes, uncomplicated
CPT/HCPCS: 71271

== ENCOUNTER → 2025-01-27 10:45 | Outpatient (BNV) | payer OTHER, SELFPAY | PROVIDERS: PCP Internal Medicine; Visit Provider Radiology Diagnostic Radiology | DX: F17.210 Nicotine dependence, cigarettes, uncomplicated (principal) | CPT/HCPCS: 71271 ==

== ENCOUNTER 2025-03-20 08:49 | Outpatient (AMB) | payer OTHER, SELFPAY ==
--- NOTE | 2025-03-20 09:17 | MHC.PC.OV ---
Vital Signs 03/20/25 09:18 Height 5 ft 3 in Weight 109 lb 6 oz BMI 19.4 BP 110/64 Blood Pressure Location Rt brachial Position Sitting Pulse 78 Pulse Source Pulse Oximeter Temp 97.3 F Temp Source Temporal Artery Scan Pulse Oximetry (%) 96 Oxygen Delivery Method Room Air Int[place] [facility] [place]/Asthma Intake Note: Patient is here for hospital discharge follow up. Patient was discharged from [facility] on 03/04/25. Complaint of inflammation of left side joints. Director Of Research And Development Required: No Electronic Lab Technician: Not Required per policy Accompanied by: Self / Same As Patient Allergies penicillin V Allergy (Intermediate, Verified 03/20/25 09:18) rash Medication List - Last Reconciled 03/20/25 by Nilson Horton MD albuterol sulfate 90 mcg/actuation 2 puffs inhalation Q4H PRN apixaban (Eliquis) 5 mg PO BID cane As directed fluticasone furoate-vilanterol 200-25 mcg/dose (Breo Ellipta) 1 inh inhalation DAILY nebulizer and compressor As directed prednisone 50 mg PO DAILY [pulse oximeter As directed] Tobacco use date assessed: 03/20/25 Dental Screening Dental Screen Date: 01/26/25 HPI HPI Comments History of Present Illness Details The patient is a 59 year old M with PMH of COPD/Asthma follows with Dr. Alaniz, PE/VTE on [place] presenting for follow-up three weeks after [place] [facility] [place] SOB and chest pain, where the patient received duoneb, CPAP, IV solumedrol, azithromycin, IV magnesium, NC 2L and was discharged on prednisone taper. During hospitalization the patient's W-U included a negative CTPE (negative PE at the segmental level, distal vessels with poor enhancement which limits evaluation), CXR negative for pneumonia, normal CBC, CMP (low magnesium). Her Oxygen saturation was 83% and she was placed on 2L NC. During hospitalization the patient was weaned off NC and was discharged home on prior inhalers (breo Elipta and Albuterol) and prednisone taper. Since being discharged the patient continues to have mild SOB on exertion but denies wheezing or cough. Her oxygen saturation was 96% during exam today. The patient follows with pulmonolgy ad has follow-up with them on 05/08/2025. She was previously on Incruse which was discontinued due to intolerance. The plan was to start the patient on Fasenra as per Dr. Alaniz most recent note 01/24/2025. However the patient reports that she does not want to take any shots as they have a lot of side effects. 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 The symptoms began in the left great toe with swelling and pain, which resolved with ice packs. Subsequently, the patient developed severe pain and swelling in the left knee, which also resolved after four days of using ice packs. Two days ago, the patient woke with severe pain, tenderness, and redness in the left elbow, which has not improved with ice and has limited range of motion to the point of needing assistance with activities of daily living. The patient reports taking Eliquis and manages pain with Tylenol. The patient has a history of ibuprofen use causing shortness of breath. [facility] Medical History (Updated 03/20/25 @ 10:44 by Nilson Horton MD) History of COVID-19 Asthma-COPD overlap syndrome Pain of right heel Environmental allergies Chronic anticoagulation History of DVT (deep vein thrombosis) History of pulmonary embolism Nicotine dependence, cigarettes, uncomplicated Hearing loss Surgical History History of tonsillectomy History of tubal ligation Family History Father HIV (human immunodeficiency virus infection) Mother HIV (human immunodeficiency virus infection) Sister Aortic heart murmur Brother HIV (human immunodeficiency virus infection) Sister No problems noted. Maternal Aunt Breast cancer Social History Household Members: Children Housing: Other Housing Other:: lives with daughter Are you a primary healthcare specialist to a significant other at home: No Do you presently have visiting nurse or other home services: No Alcohol intake: current Alcohol intake frequency: does not drink Alcohol type: beer Patient Tobacco Use Status: Former Tobacco user Tobacco use type: Cigarette Cigarette Packs Per Day: 0.25 Cigarettes Per Day: 1 Years Smoked: (onset 16yo, 1/2ppd x 43yrs, now 1-2 a day - 20pyh) e-Cigarette/Vaping Use: Never Used Second Hand Smoke Exposure: Yes Substance Use Type: Crack/Cocaine service: No Current occupational status: unemployed Current occupational exposures/hazards: No Cognitive needs: No Hearing needs: Yes Vision needs: Yes Questionnaire PHQ-9 Over the last 2 weeks, how often have you been bothered by any of the following problems? 1. Little interest or pleasure in doing things: not at all 2. Feeling down, depressed, or hopeless: not at all 3. Trouble falling or staying asleep, or sleeping too much: not at all 4. Feeling tired or having little energy: several days 5. Poor appetite or overeating: not at all 6. Feeling bad about yourself - or that you are a failure or have let yourself or your family down: not at all 7. Trouble concentrating on things, such as reading the newspaper or watching television: not at all 8. Moving or speaking so slowly that other people could have noticed. Or the opposite - being so fidgety or restless that you have been moving around a lot more than usual: not at all 9. Thoughts that you would be better off or of hurting yourself in some way: not at all Total score: 1 Depression Screening Interpretation: Positive Depression Screening Done: Yes Source: Developed by Drs. Allen Martinez, Jamilah Rolle, Sanjay Shannon and colleagues, with an educational min from [employer]. Thrive Questionnaire Date Thrive assessed: 10/17/24 I am a: Patient What is your living situation today?: I have a steady place to live Within the past 12 months, did the food you bought not last and you didn't have the money to get more?: Never true Within the past 12 months, did you worry whether your food would run out before you got money to buy more?: Often true Do you have trouble paying for medicines?: No Do you have trouble getting transportation to medical appointments?: No Do you have trouble paying your heating and electricity bill?: No Do you have trouble taking care of your child, family member or friend?: No Do you have trouble with day-to-day activities such as bathing, preparing meals, shopping, managing finances, etc.?: No Are you currently unemployed and looking for a job?: No Are you interested in more education?: No Please select the resources that you would like help with: None Currently or been in a relationship where the following occur: I choose not to answer THRIVE Score: 1 AUDIT C Alcohol Use Questionnaire (AUDIT-C) 1. How often do you have a drink containing alcohol?: Never Total Score: 0 LUIZ-7 AMB Questionnaire LUIZ-7 Date LUIZ - 7 assessed: 11/04/24 Feeling nervous, anxious, or on edge: 0 = Not at all Not being able to stop or control worryin = Not at all Worrying too much about different things: 0 = Not at all Trouble relaxin = Not at all Being so restless that it is hard to sit still: 0 = Not at all Becoming easily annoyed or irritable: 0 = Not at all Feeling afraid as if something awful might happen: 0 = Not at all Total LUIZ-7 score (0-4 normal; 5-9 mild; 10-14 moderate; 15-21 severe): 0 Source: Developed by Drs. Allen Martinez, Jamilah Rolle, Sanjay Shannon and colleagues, with an educational min from [employer]. Review of Systems Const Details: As per HPI. Physical exam (Primary Care) Vital Signs: Last Vital Signs Temp 97.3 F 03/20/25 09:18 Pulse 78 03/20/25 09:18 BP 110/64 03/20/25 09:18 Pulse Ox 96 03/20/25 09:18 Oxygen Delivery Method Room Air 03/20/25 09:18 BMI result Body Mass Index 19.4 Tobacco/Smoking Status: Tobacco use Status Tobacco use date assessed 03/20/25 03/20/25 09:25 Patient Tobacco Use Status Former Tobacco user 03/20/25 09:25 Tobacco use type Cigarette 03/20/25 09:25 e-Cigarette/Vaping Use Never Used 03/20/25 09:25 PHQ-9: PHQ-9 Score PHQ-9: Total score 1 03/20/25 09:26 Depression Screening Interpretation: Positive Thrive Assessment: Date of Thrive Assessment Date Thrive assessed 10/17/24 03/20/25 09:25 Currently or been in a relationship where the following occur: I choose not to answer Const Other: Pertinent findings are in BOLD GENERAL APPEARANCE NAD, activity normal for age, well developed/ well nourished, no cyanosis, pallor, or diaphoresis. EYES lids/conjunctiva normal. EARS/NOSE/THROAT Mucous membranes moist, nares normal, lips/teeth normal uvula midline without oral pharyngeal erythema, exudate or swelling TMs normal bilaterally. No lymphangitis/lymphedema. HEAD/NECK normocephalic atraumatic, no facial trauma, neck is supple. RESPIRATORY respiratory effort normal, speaks in full sentences, no tripod position, no accessory muscle use. Lungs clear to auscultation without rhonchi, wheezes, rales CARDIAC Regular rate and rhythm, no edema. ABDOMINAL Soft, ND/NT. No evidence of fluid wave. No pulsatile masses on exam, rebound tenderness, Santos sign or pain over Mcburney's point. MUSCLES/EXTREMITIES No abnormal range of motion, no swelling. SKIN Warm, pink and dry. No rashes, dermatoses, petechiae or lesions. NEUROLOGICAL Speech is clear and appropriate. Normal level of consciousness. Gait and coordination are normal. 5/5 strength in all extremities. PSYCH Normal mood and affect. 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 - To investigate the etiology, blood work has been ordered to screen for autoimmune diseases, such as rheumatoid arthritis (rheumatoid factor, CCP), Lyme disease, and other inflammatory markers, as well as Hepatitis B, Hepatitis C, and HIV. - An X-ray of the left elbow has been ordered to assess for any structural changes or signs of specific arthritides. - For symptomatic relief, diclofenac (Voltaren) gel has been prescribed for topical application. - The patient will continue to use Tylenol for pain management and will avoid ibuprofen, as it has previously caused shortness of breath. - A follow-up visit is scheduled in four weeks to review the diagnostic results and reassess the patient's condition. (2) Hospital discharge follow[place]: [place] [facility] [place] Code(s): Z51.89 - Encounter for other specified aftercare Category: Medical Plan: - The patient is advised to continue the current asthma regimen, including Breo Ellipta and albuterol. - No changes will be made to the pulmonary medication plan at this visit. - The patient is encouraged to keep the upcoming appointment with the mechanic general operational test, Dr. Alaniz, to discuss management and concerns regarding a recommended injectable medication, most likely Fasenra, which the patient is hesitant to take due to potential side effects. - I will message Dr. Alaniz to inquire if the patient can be seen sooner than the scheduled May 08 appointment. Plan I discussed the plan to investigate the patient's new onset of migratory joint pain. I explained that we would order blood work to evaluate for autoimmune conditions like rheumatoid arthritis, as well as infectious causes like Lyme disease, and an X-ray of the left elbow to assess for underlying changes. For pain management, I prescribed a topical anti-inflammatory gel and advised continuing Tylenol, noting the patient's report that ibuprofen worsens breathing. Regarding the patient's asthma, I advised continuing current inhalers and reinforced the importance of following up with the mechanic general operational test, Dr. Alaniz. We discussed the injectable medication recommended by the specialist most likely Fasenra, and I acknowledged the patient's concerns about side effects, encouraging a detailed conversation about these risks and benefits with the mechanic general operational test. I informed the patient that I would message the specialist to see if an earlier appointment is possible. I instructed the patient on how to get the diagnostic tests completed and scheduled a follow-up appointment in four weeks to review the results and reassess the clinical status of the joints and breathing. Orders: Orders KAMAR Reflex Titer and Pattern Today - Unspecified osteoarthritis, unspecified site Uric Acid Today - Unspecified osteoarthritis, unspecified site Anti DNA DS Antibody Today - Unspecified osteoarthritis, unspecified site Complete Blood Count Auto Diff Today - Unspecified osteoarthritis, unspecified site Hepatitis C Antibody Reflex Today - Unspecified osteoarthritis, unspecified site HIV Ab/Ag Today - Unspecified osteoarthritis, unspecified site Hepatitis B Surface Antibody Today - Unspecified osteoarthritis, unspecified site Lyme IgG/IgM w/reflex to WB Today - Unspecified osteoarthritis, unspecified site Rheumatoid Factor Today - Unspecified osteoarthritis, unspecified site Erythrocyte Sedimentation Rate Today - Unspecified osteoarthritis, unspecified site CRP High Sensitivity Today - Unspecified osteoarthritis, unspecified site Cyclic Citrullinated Peptide Today - Unspecified osteoarthritis, unspecified site XR elbow LT 2V Today - Unspecified osteoarthritis, unspecified site Hepatitis B Core Antibody Today - Unspecified osteoarthritis, unspecified site Hepatitis B Surface Antigen Today - Unspecified osteoarthritis, unspecified site Medications: New diclofenac sodium 1% (Voltaren Arthritis Pain) apply to single elbow, wrist or hand; for hand includes palm/fingers/back of hand 2 grams topical QID 50 grams 3RF
[2025-03-20 09:18] VITALS: BP 110/64; PULSE 78; TEMP 36.3; O2SAT 96; BMI 19.4
== END 2025-03-20 09:57 | disposition home or self-care (01) ==
LOC: HO.HMCH 08:50
PROVIDERS: PCP Internal Medicine; Visit Provider Internal Medicine
DX: M19.90 Unspecified osteoarthritis, unspecified site (principal); Z51.89 Encounter for other specified aftercare

== ENCOUNTER → 2025-03-20 08:49 | Outpatient (BNVA) | payer OTHER, SELFPAY | PROVIDERS: PCP Internal Medicine; Visit Provider Internal Medicine | DX: M19.072 Primary osteoarthritis, left ankle and foot (principal); M17.12 Unilateral primary osteoarthritis, left knee; M19.022 Primary osteoarthritis, left elbow; Z79.01 Long term (current) use of anticoagulants; Z51.89 Encounter for other specified aftercare | CPT/HCPCS: 99212 ==